=== PATIENT | male | born 1945 | race Caucasian/White ===

== ENCOUNTER → 2020-08-18 13:15 | Outpatient (BNVA) | payer MEDICARE, SELFPAY | PROVIDERS: PCP Internal Medicine; Visit Provider Orthopaedic Surgery | DX: M75.41 Impingement syndrome of right shoulder (principal) | CPT/HCPCS: 99202 ==

== ENCOUNTER 2020-09-16 08:08 | Outpatient (REF) | payer MEDICARE, SELFPAY ==
[2020-09-16 11:53] LABS: Cholesterol 133 mg/dL; Glucose Fasting 107 mg/dL (60-99); HDL Cholesterol 41 mg/dL; LDL Cholesterol Calculated 76 mg/dl; Triglycerides 84 mg/dL
[2020-09-16 12:15] LABS: Estimated Average Glucose 120 mg/dL; Hemoglobin A1c % 5.8 %
== END 2020-09-16 08:09 | disposition home or self-care (01) ==
LOC: HO.HMGCLDS 08:08
PROVIDERS: PCP Internal Medicine; Visit Provider Internal Medicine
DX: Z00.00 Encounter for general adult medical examination without abnormal findings (principal); R73.01 Impaired fasting glucose; E78.00 Pure hypercholesterolemia, unspecified; I10 Essential (primary) hypertension; G47.33 Obstructive sleep apnea (adult) (pediatric); D12.6 Benign neoplasm of colon, unspecified; M25.511 Pain in right shoulder; Z86.73 Personal history of transient ischemic attack (TIA), and cerebral infarction without residual deficits
CPT/HCPCS: 36415; 80061; 82947; 83036

== ENCOUNTER 2021-03-02 07:29 | Outpatient (REF) | payer MEDICARE, SELFPAY ==
[2021-03-02 11:27] LABS: MANUAL DIFF FLAG NO
[2021-03-02 11:40] LABS: Estimated Average Glucose 120 mg/dL; Hemoglobin A1C 148.4581 umol/L; Hemoglobin A1c % 5.8 %
[2021-03-02 12:03] LABS: Basophils Percent Auto 0.3 % (0-2); Eosinophils Absolute Auto 0.2 X10*3/uL (0.0-0.4); Eosinophils Percent Auto 3.6 % (0-4); Hematocrit 40.6 % (42-52); Hemoglobin 13.6 g/dl (14.0-18.0); Imm Gran Abs Auto 0.01 X10*3/uL (0.00-0.03); Imm Gran Pct Auto 0.2 % (0.0-0.4); Lymphocytes Absolute Auto 2.3 X10*3/uL (1.2-4.9); Lymphocytes Percent Auto 36.9 % (20-40); Mean Corpuscular HGB Conc 33.5 g/dl (31.0-36.0); Mean Corpuscular Hemoglobin 30.1 pg (27.0-33.0); Mean Corpuscular Volume 89.8 fL (80-98); Mean Platelet Volume 10.5 fL (9.4-12.4); Monocytes Absolute Auto 0.5 X10*3/uL (0.1-1.2); Monocytes Percent Auto 7.7 % (2-11); Neutrophils Absolute Auto 3.3 X10*3/uL (2.0-8.3); Neutrophils Percent Auto 51.3 % (45-73); Platelet Count 189 X10*3/uL (160-400); Red Blood Count 4.52 X10*6/uL (4.60-5.80); Red Cell Distribution Width 12.7 % (11.0-16.0); White Blood Count 6.3 X10*3/uL (4.8-10.8)
[2021-03-02 12:10] LABS: Alanine Aminotransferase 21 U/L (0-40); Albumin Level 4.3 g/dL (3.5-5.0); Alkaline Phosphatase 60 U/L (39-117); Anion Gap 13 (12-20); Aspartate Amino Transferase 19 U/L (5-37); Bilirubin Total 0.8 mg/dL (0.0-1.0); Blood Urea Nitrogen 19 mg/dL (9-16); Calcium 9.6 mg/dL (8.4-10.2); Carbon Dioxide 27 mmol/L (22-29); Chloride 107 mmol/L (96-108); Cholesterol 131 mg/dL; Estimated Glomerular Filt Rate > 60; Glucose Random 112 mg/dL (60-115); HDL Cholesterol 44 mg/dL; LDL Cholesterol Calculated 75 mg/dl; Potassium 4.2 mmol/L (3.3-5.1); Sodium 143 mmol/L (135-145); Total Protein 6.5 g/dL (6.5-8.0); Triglycerides 63 mg/dL
[2021-03-02 12:37] LABS: Free T4 (Free Thyroxine) 0.88 ng/dL (0.71-1.85); Thyroid Stimulating Hormone 2.28 uIU/mL (0.32-4.0)
[2021-03-02 12:51] LABS: Folate 13.2 ng/mL (> or = 4.0); Vitamin B12 331 pg/mL (200-900)
== END 2021-03-02 07:30 | disposition home or self-care (01) ==
LOC: HO.HMGCLDS 07:29
PROVIDERS: PCP Internal Medicine; Visit Provider Internal Medicine
DX: R73.02 Impaired glucose tolerance (oral) (principal); I10 Essential (primary) hypertension; E78.00 Pure hypercholesterolemia, unspecified
CPT/HCPCS: 36415; 80053; 80061; 82607; 82746; 83036; 84439; 84443; 85025

== ENCOUNTER → 2021-03-08 08:22 | Outpatient (BNVA) | payer MEDICARE, SELFPAY | PROVIDERS: PCP Internal Medicine; Visit Provider Nurse Practitioner Family | CPT/HCPCS: Q3014 ==

== ENCOUNTER 2021-03-09 13:21 | Outpatient (REF) | payer MEDICARE, SELFPAY ==
[2021-03-09 13:52] LABS: MANUAL DIFF FLAG NO
[2021-03-09 13:58] LABS: Basophils Percent Auto 0.4 % (0-2); Eosinophils Absolute Auto 0.2 X10*3/uL (0.0-0.4); Eosinophils Percent Auto 2.9 % (0-4); Hematocrit 40.6 % (42-52); Hemoglobin 13.7 g/dl (14.0-18.0); Imm Gran Abs Auto 0.01 X10*3/uL (0.00-0.03); Imm Gran Pct Auto 0.1 % (0.0-0.4); Immature Retic Fraction 11.4 % (2.3-13.4); Lymphocytes Absolute Auto 2.8 X10*3/uL (1.2-4.9); Lymphocytes Percent Auto 36.2 % (20-40); Mean Corpuscular HGB Conc 33.7 g/dl (31.0-36.0); Mean Platelet Volume 10.5 fL (9.4-12.4); Monocytes Absolute Auto 0.5 X10*3/uL (0.1-1.2); Monocytes Percent Auto 6.4 % (2-11); Neutrophils Absolute Auto 4.1 X10*3/uL (2.0-8.3); Platelet Count 196 X10*3/uL (160-400); Red Blood Count 4.56 X10*6/uL (4.60-5.80); Red Cell Distribution Width 12.6 % (11.0-16.0); Retic HGB Equivalent 34.7 pg (30.0-35.0); Reticulocyte Percent 1.3 % (0.5-1.8); Reticulocytes Absolute 0.061 X10*6/uL (0.026-0.095); White Blood Count 7.7 X10*3/uL (4.8-10.8)
[2021-03-09 14:26] LABS: Iron 95 mcg/dL (45-160); Percent Iron Saturation 37 % (15-50); Total Iron Binding Capacity 254 mcg/dL (228-428); Unsaturated Iron Binding 159 ug/dL
[2021-03-09 14:49] LABS: Ferritin 105 ng/mL (20-250)
== END 2021-03-09 13:22 | disposition home or self-care (01) ==
LOC: HO.HMGCLDS 13:21
PROVIDERS: PCP Internal Medicine; Visit Provider Internal Medicine
DX: D64.9 Anemia, unspecified (principal)
CPT/HCPCS: 36415; 82728; 83540; 85025; 85045

== ENCOUNTER → 2021-06-08 10:56 | Outpatient (BNVA) | payer MEDICARE, SELFPAY | PROVIDERS: PCP Internal Medicine; Visit Provider Urology | DX: N40.1 Benign prostatic hyperplasia with lower urinary tract symptoms (principal); N20.0 Calculus of kidney; R35.0 Frequency of micturition | CPT/HCPCS: 51798; Q3014 ==

== ENCOUNTER 2021-08-18 10:18 | Outpatient (REF) | payer MEDICARE, SELFPAY ==
--- NOTE | ~2021-08-18 | US_ITS ---
EXAMINATION: US RETROPERITONEAL LIMITED (RENAL ONLY) CLINICAL INFORMATION: Calculus of kidney. COMPARISON: Renal ultrasound 05/04/2020. KUB 04/14/2020. CT abdomen and pelvis 11/13/2016. TECHNIQUE: Real-time imaging of the kidneys. FINDINGS: RIGHT KIDNEY: 11.5 x 5.4 x 5.6 cm (SAG x AP x TRV). The kidney has normal cortical thickness and cortical echotexture. No focal parenchymal lesion. No hydronephrosis. A small, 0.3 cm hyperechoic focus in the interpolar area lacks twinkle artifact or distal shadowing. This is equivocal for a small calyceal stone. LEFT KIDNEY: 11.3 x 5.2 x 6.2 cm (SAG x AP x TRV). The kidney has normal cortical thickness and cortical echotexture. No focal parenchymal lesion. Possible 0.2 cm calyceal stone in the interpolar area (image 53 of 64). A stone that measures up to 0.6 cm in the upper pole is stable compared to 05/04/2020. No hydronephrosis. US/US renal BI IMPRESSION: * A 0.6 cm calculus at the upper pole left kidney is unchanged in size and position compared to 05/04/2020. * Possible small calculi in the interpolar region of each kidney. No hydronephrosis.
== END 2021-08-18 10:19 | disposition home or self-care (01) ==
LOC: HO.HMGCX 10:18
PROVIDERS: PCP Internal Medicine; Visit Provider Urology
DX: N20.0 Calculus of kidney (principal)
CPT/HCPCS: 76775

== ENCOUNTER 2021-10-11 14:41 | Outpatient (REF) | payer MEDICARE, SELFPAY | END 2021-10-11 14:42 | disposition home or self-care (01) | LOC: HO.HMGCLDS 14:41 | PROVIDERS: PCP Internal Medicine; Visit Provider Urology | DX: Z12.5 Encounter for screening for malignant neoplasm of prostate (principal); N40.1 Benign prostatic hyperplasia with lower urinary tract symptoms; R35.0 Frequency of micturition | CPT/HCPCS: 36415; 84153 ==

== ENCOUNTER → 2021-10-14 08:45 | Outpatient (BNVA) | payer MEDICARE, SELFPAY | PROVIDERS: PCP Internal Medicine; Visit Provider Urology | DX: Z13.89 Encounter for screening for other disorder (principal) | CPT/HCPCS: Q3014 ==

== ENCOUNTER 2022-02-23 02:16 | Emergency (ER) | payer MEDICARE, SELFPAY ==
--- NOTE | ~2022-02-23 | CT_ITS ---
EXAMINATION: CT ABDOMEN AND PELVIS WITHOUT CONTRAST CLINICAL INFORMATION: Left flank pain. History of stone. COMPARISON: Renal ultrasound 08/18/2021 TECHNIQUE: Multidetector volumetric imaging was performed from the superior aspect of the liver through the pubic symphysis. Sagittal and coronal reformatted images were obtained on the technologist's workstation. This CT examination was performed using dose optimization techniques as appropriate, variously including the following: *Automated exposure control *Adjustment of mA and/or kV according to patient size (this includes techniques or standardized protocols for targeted exams where dose is matched to indication/reason for exam; i.e. extremities or head) *Use of iterative reconstruction technique DLP: 568 mGy-cm FINDINGS: LUNG BASES: The visualized lung bases are unremarkable. LIVER, GALLBLADDER, AND BILIARY TREE: The liver is normal in size, shape, and attenuation. No focal hepatic lesion or biliary ductal dilatation is present. The gallbladder is unremarkable with no evidence of radiopaque gallstones, gallbladder wall thickening, or obvious pericholecystic inflammatory changes. PANCREAS: Unremarkable. SPLEEN: Unremarkable. ADRENAL GLANDS: Unremarkable. KIDNEYS AND URETERS: The kidneys are normal in size, shape, and attenuation. Mild left hydronephrosis. 0.6 cm calculus in the proximal ureter at the level of L4-L5. This measures 900 Hounsfield units. BLADDER: Unremarkable. GASTROINTESTINAL TRACT: The stomach there is unremarkable. Normal caliber small bowel. No obstruction. No wall thickening or inflammation. Normal appendix. No free air or free fluid. ABDOMINAL WALL: No significant hernia is appreciated. LYMPH NODES: Normal. VASCULAR: Normal caliber aorta with mild atherosclerotic calcification. PELVIC VISCERA: The prostate and seminal vesicles are unremarkable. OSSEOUS STRUCTURES: No acute or suspicious osseous abnormalities. CT/CT abdomen pelvis wo con IMPRESSION: Mild left hydronephrosis with a 0.6 cm calculus in the proximal ureter. Fleischner guidelines were followed.
[2022-02-23 02:30] VITALS: BP 187/77; PULSE 63; RESP 18; TEMP 36.8; O2SAT 95; BMI 26.0
--- NOTE | 2022-02-23 02:36 | ED_ITS ---
HPI - Abdominal Pain General Chief Complaint: Abdominal Pain Stated Complaint: Kidney Stone Time Seen by Provider: 02/23/22 02:36 Source: patient Mode of arrival: ambulatory Limitations: no limitations History of Present Illness HPI narrative: Patient with history of kidney stone had lithotripsy last year complaining of pain in the left flank area for last few hours associated with nausea and pain while urinating no hematuria no fever no chills. Related Data Home Medications Medication Instructions Recorded Confirmed aspirin 81 mg tablet,delayed 81 mg PO DAILY 08/16/20 03/08/21 release (Adult Aspirin Regimen) cholecalciferol (vitamin D3) 25 25 mcg PO DAILY 03/08/21 03/08/21 mcg (1,000 unit) capsule Previous Rx's Medication Instructions Recorded finasteride 5 mg tablet 5 mg PO DAILY 90 days #90 tabs 08/31/21 rosuvastatin 5 mg tablet 5 mg PO DAILY #90 tabs 09/05/21 ibuprofen 600 mg tablet 600 mg PO Q6H PRN pain #30 tabs 02/23/22 ondansetron 4 mg disintegrating 4 mg PO Q6-8H PRN nausea and 02/23/22 tablet vomiting #7 tabs oxycodone 5 mg tablet 5 mg PO Q6H PRN Pain (Scale Score 02/23/22 7-10) #20 tabs Allergies Allergy/AdvReac Type Severity Reaction Status Date / Time No Known Allergies Allergy Verified 06/08/21 12:46 [No Known Allergies*] Review of Systems Review of Systems Yes all other systems are reviewed and are negative PMFSH Past Medical History Medical History Bilateral renal stones BPH (benign prostatic hyperplasia) Cervical spinal stenosis Degenerative disc disease, cervical History of TIA (transient ischemic attack) Hypercholesterolemia Hypertension Impaired glucose tolerance Nephrolithiasis Obstructive sleep apnea syndrome, moderate Sleep apnea Vitamin D deficiency Surgical History H/O lithotripsy History of tonsillectomy Social History Social History Housing: House Patient Tobacco Use Status: Former Tobacco user Tobacco use type: Cigarette e-Cigarette/Vaping Use: Never Used Second Hand Smoke Exposure: No Advance Directives: No service: No Current occupational status: retired Current occupation: Right Handed Physical Exam ED Vital Signs: Vital Signs - 24 hr 02/23/22 02:30 02/23/22 04:09 Temperature 98.3 F Pulse Rate 63 65 Respiratory Rate 18 24 H Blood Pressure 187/77 H 188/60 H Pulse Oximetry 95 99 Oxygen Delivery Method Room Air Room Air BMI result Body Mass Index 26.0 Appearance: Alert. Oriented X3. No acute distress. Eyes: no pallor ENT: Pharynx normal. Oral Mucosa moist Neck: Normal inspection. Neck supple. CVS: Normal heart rate and rhythm. Pulses normal. Respiratory: No respiratory distress. Equal air entry bilateral, no wheezing/rales/rhonchi Abdomen: Soft and nontender. Bowel sounds are present, no mass palpable, left CVA tenderness ++ Skin: Skin warm and dry. Normal skin color. Normal skin turgor. Extremities: No lower extremity edema. No calf tenderness Neuro: Oriented X 3. No motor deficit. MDM - Abdominal Pain MDM Narrative Medical decision making narrative: patient has 0.6 cm left upper ureteric stone with mild hydronephrosis pinning much better after arrival received only 1 dose of Toradol. Will discharge p atient home on oxycodone advised to follow-up with urologist Lab Data Attestation: I reviewed the patient's lab results. Result diagrams: 02/23/22 02:39 02/23/22 02:39 Labs: Lab Results 02/23/22 02/23/22 02/23/22 Range/Units 02:39 02:39 02:39 WBC 11.2 H (4.8-10.8) X10*3/uL RBC 4.53 L (4.60-5.80) X10*6/uL Hgb 13.9 L (14.0-18.0) g/dl Hct 39.5 L (42.0-52.0) % MCV 87.2 (80.0-98.0) fL MCH 30.7 (27.0-33.0) pg MCHC 35.2 (31.0-36.0) g/dl RDW 12.5 (11.0-16.0) % Plt Count 191 (160-400) X10*3/uL MPV 9.8 (9.4-12.4) fL Immature Gran % (Auto) 0.3 (0.0-0.4) % Neut % (Auto) 77.7 H (45-73) % Lymph % (Auto) 15.5 L (20-40) % [place] % (Auto) 5.6 (2-11) % Eos % (Auto) 0.7 (0-4) % Baso % (Auto) 0.2 (0-2) % Lymph # (Auto) 1.7 (1.2-4.9) X10*3/uL [place] # (Auto) 0.6 (0.1-1.2) X10*3/uL Eos # (Auto) 0.1 (0.0-0.4) X10*3/uL Baso # (Auto) 0.0 (0.0-0.2) X10*3/uL Abs Immat Gran (auto) 0.03 (0.00-0.03) X10*3/uL Absolute Neuts (auto) 8.7 H (2.0-8.3) x10*3/uL Absolute Nucleated RBC 0.000 (0.0-0.012) X10*3/uL Nucleated RBC % (auto) 0.0 (0.0-0.2) /100WBC Sodium 138 (135-145) mmol/L Potassium 4.2 (3.3-5.1) mmol/L Chloride 105 (96-108) mmol/L Carbon Dioxide 24 (22-29) mmol/L Anion Gap 13 (12-20) BUN 21 H (9-16) mg/dL Creatinine 1.06 (0.5-1.4) mg/dL Estim Creat Clear Calc 60.1 Estimated GFR > 60 Random Glucose 148 H (60-115) mg/dL Calcium 8.9 D (8.4-10.2) mg/dL Urine Color YELLOW Urine Appearance HAZY Urine pH 7.0 (5.0-8.0) Ur Specific [place] 1.020 (1.005-1.025) Urine Protein TRACE (NEG-TRACE) MG/DL Urine Glucose (UA) NEG (NEG) MG/DL Urine Ketones NEG (NEG) MG/DL Urine Blood 3+ H (NEG) Urine Nitrite NEG (NEG) Ur Leukocyte Esterase NEG (NEG) Urine RBC 50-75 H (0) /HPF Urine WBC 0-2 (0-4) /HPF Ur Squamous Epith Cells TRACE /LPF Amorphous Sediment 1+ /LPF Urine Bacteria NONE /LPF Urine Mucus TRACE /LPF Discharge Plan Discharge Clinical Impression: Calculus of kidney Patient Disposition: Home, Self-Care Instructions: Kidney Stones (ED) Additional Instructions: drink plenty of fluids continue finasteride pain medication as prescribed follow up with your urologist if pain continues likely your stone will pass Prescriptions: New ibuprofen 600 mg tablet 600 mg PO Q6H PRN (Reason: pain) Qty: 30 0RF oxycodone 5 mg tablet 5 mg PO Q6H PRN (Reason: Pain (Scale Score 7-10)) Qty: 20 0RF Rx Instructions: Partial Fill upon patient request. ondansetron 4 mg tablet,disintegrating 4 mg PO Q6-8H PRN (Reason: nausea and vomiting) Qty: 7 0RF No Action finasteride 5 mg tablet 5 mg PO DAILY 90 Days Qty: 90 1RF rosuvastatin 5 mg tablet 5 mg PO DAILY Qty: 90 2RF cholecalciferol (vitamin D3) 25 mcg (1,000 unit) capsule 25 mcg PO DAILY aspirin [Adult Aspirin Regimen] 81 mg tablet,delayed release (DR/EC) 81 mg PO DAILY Referrals: Pipo Goodrich MD [Physician] - 3 days Interventions: ED Discharge Assessment Last Done: 02/23/22 05:08 Discharge Date/Time: 02/23/22 05:09
[2022-02-23 02:44] LABS: MANUAL DIFF FLAG NO
[2022-02-23] MEDS: 0.9 % Sodium Chloride 1,000 ML 999 ML IV (02:44)
[2022-02-23 02:45] LABS: Basophils Percent Auto 0.2 % (0-2); Eosinophils Absolute Auto 0.1 X10*3/uL (0.0-0.4); Eosinophils Percent Auto 0.7 % (0-4); Hematocrit 39.5 % (42.0-52.0); Hemoglobin 13.9 g/dl (14.0-18.0); Imm Gran Abs Auto 0.03 X10*3/uL (0.00-0.03); Imm Gran Pct Auto 0.3 % (0.0-0.4); Lymphocytes Absolute Auto 1.7 X10*3/uL (1.2-4.9); Lymphocytes Percent Auto 15.5 % (20-40); Mean Corpuscular HGB Conc 35.2 g/dl (31.0-36.0); Mean Corpuscular Hemoglobin 30.7 pg (27.0-33.0); Mean Corpuscular Volume 87.2 fL (80.0-98.0); Mean Platelet Volume 9.8 fL (9.4-12.4); Monocytes Absolute Auto 0.6 X10*3/uL (0.1-1.2); Monocytes Percent Auto 5.6 % (2-11); Neutrophils Absolute Auto 8.7 x10*3/uL (2.0-8.3); Neutrophils Percent Auto 77.7 % (45-73); Platelet Count 191 X10*3/uL (160-400); Red Blood Count 4.53 X10*6/uL (4.60-5.80); Red Cell Distribution Width 12.5 % (11.0-16.0); White Blood Count 11.2 X10*3/uL (4.8-10.8)
[2022-02-23 02:46] LABS: Appearance Urine HAZY; Color Urine YELLOW; Glucose Urine UA NEG (NEG); Leukocyte Esterase Urine NEG (NEG); Nitrite Urine NEG (NEG); UACC Culture Trigger NO; Urine Blood 3+ (NEG); Urine Ketones NEG (NEG); Urine Protein TRACE MG/DL (NEG-TRACE)
[2022-02-23 02:53] LABS: Amorphous Sediment Urine 1+ /LPF; Mucus Urine TRACE /LPF; RBC Urine 50-75 /HPF (0); Squamous Epithelial Cell Urine TRACE /LPF; WBC Urine 0-2 /HPF (0-4)
[2022-02-23 03:04] LABS: Anion Gap 13 (12-20); Blood Urea Nitrogen 21 mg/dL (9-16); Calcium 8.9 mg/dL (8.4-10.2); Carbon Dioxide 24 mmol/L (22-29); Chloride 105 mmol/L (96-108); Creatinine Clr Calc Pharmacy 60.1; Estimated Glomerular Filt Rate > 60; Glucose Random 148 mg/dL (60-115); Potassium 4.2 mmol/L (3.3-5.1); Sodium 138 mmol/L (135-145)
[2022-02-23] MEDS: Tamsulosin HCL 0.4 MG CAPSULE PO (03:49)
[2022-02-23 04:09] VITALS: BP 188/60; PULSE 65; RESP 24; O2SAT 99
[2022-02-23] MEDS: Ketorolac Tromethamine 30 MG/ML VIAL IVPUSH (04:14)
== END 2022-02-23 05:09 | disposition home or self-care (01) ==
PROVIDERS: Emergency Provider Internal Medicine; PCP Internal Medicine
DX: N13.2 Hydronephrosis with renal and ureteral calculous obstruction (principal); R10.9 Unspecified abdominal pain; I10 Essential (primary) hypertension; E78.5 Hyperlipidemia, unspecified; Z86.73 Personal history of transient ischemic attack (TIA), and cerebral infarction without residual deficits; Z87.442 Personal history of urinary calculi; Z87.891 Personal history of nicotine dependence
CPT/HCPCS: 36415; 74176; 80048; 81001; 85025; 96361; 96374; 99284; J1885

== ENCOUNTER 2022-03-01 07:12 | Outpatient (REF) | payer MEDICARE, SELFPAY ==
[2022-03-01 11:35] LABS: MANUAL DIFF FLAG NO
[2022-03-01 11:38] LABS: Basophils Percent Auto 0.4 % (0-2); Eosinophils Absolute Auto 0.2 X10*3/uL (0.0-0.4); Eosinophils Percent Auto 2.1 % (0-4); Hematocrit 39.1 % (42.0-52.0); Hemoglobin 13.4 g/dl (14.0-18.0); Imm Gran Abs Auto 0.04 X10*3/uL (0.00-0.03); Imm Gran Pct Auto 0.4 % (0.0-0.4); Lymphocytes Absolute Auto 2.6 X10*3/uL (1.2-4.9); Lymphocytes Percent Auto 27.2 % (20-40); Mean Corpuscular HGB Conc 34.3 g/dl (31.0-36.0); Mean Corpuscular Hemoglobin 30.7 pg (27.0-33.0); Mean Corpuscular Volume 89.7 fL (80.0-98.0); Mean Platelet Volume 10.3 fL (9.4-12.4); Monocytes Absolute Auto 0.9 X10*3/uL (0.1-1.2); Monocytes Percent Auto 9.4 % (2-11); Neutrophils Absolute Auto 5.8 x10*3/uL (2.0-8.3); Neutrophils Percent Auto 60.5 % (45-73); Platelet Count 202 X10*3/uL (160-400); Red Blood Count 4.36 X10*6/uL (4.60-5.80); Red Cell Distribution Width 12.3 % (11.0-16.0); White Blood Count 9.6 X10*3/uL (4.8-10.8)
[2022-03-01 12:04] LABS: Estimated Average Glucose 117 mg/dL; Hemoglobin A1c % 5.7 %
[2022-03-01 12:20] LABS: Free T4 (Free Thyroxine) 0.91 ng/dL (0.71-1.85); Thyroid Stimulating Hormone 3.48 uIU/mL (0.32-4.0)
[2022-03-01 12:35] LABS: Alanine Aminotransferase 16 U/L (0-40); Albumin Level 4.2 g/dL (3.5-5.0); Alkaline Phosphatase 53 U/L (39-117); Anion Gap 15 (12-20); Aspartate Amino Transferase 16 U/L (5-37); Bilirubin Total 0.6 mg/dL (0.0-1.0); Blood Urea Nitrogen 18 mg/dL (9-16); Carbon Dioxide 25 mmol/L (22-29); Chloride 106 mmol/L (96-108); Cholesterol 133 mg/dL; Estimated Glomerular Filt Rate > 60; Glucose Random 104 mg/dL (60-115); HDL Cholesterol 46 mg/dL; LDL Cholesterol Calculated 70 mg/dl; Potassium 4.1 mmol/L (3.3-5.1); Sodium 142 mmol/L (135-145); Total Protein 6.5 g/dL (6.5-8.0); Triglycerides 86 mg/dL
[2022-03-01 12:37] LABS: Folate 12.6 ng/mL (> or = 4.0); Vitamin B12 321 pg/mL (200-900)
== END 2022-03-01 07:13 | disposition home or self-care (01) ==
LOC: HO.HMGCLDS 07:12
PROVIDERS: Visit Provider Internal Medicine
DX: I10 Essential (primary) hypertension (principal); E78.00 Pure hypercholesterolemia, unspecified
CPT/HCPCS: 36415; 80053; 80061; 82607; 82746; 83036; 84439; 84443; 85025

== ENCOUNTER → 2022-03-21 09:26 | Outpatient (BNVA) | payer MEDICARE, SELFPAY | PROVIDERS: PCP Internal Medicine | DX: N20.0 Calculus of kidney (principal) | CPT/HCPCS: 99212 ==

== ENCOUNTER 2022-04-06 07:51 | Outpatient (REF) | payer MEDICARE, SELFPAY ==
--- NOTE | ~2022-04-06 | XR_ITS ---
EXAMINATION: XR SHOULDER, RIGHT CLINICAL INFORMATION: Pain COMPARISON: None TECHNIQUE: AP external rotation, Grashey, scapular Y, and axillary views of the right shoulder. FINDINGS: The bones and soft tissues are normal. No fracture. Glenohumeral and acromioclavicular alignment is anatomic with normal joint space. No abnormal soft tissue calcifications. XR/XR shoulder RT min 2V IMPRESSION: Unremarkable right shoulder
== END 2022-04-06 07:52 | disposition home or self-care (01) ==
LOC: HO.HOSX 07:51
PROVIDERS: Visit Provider Physician Assistant
DX: M75.101 Unspecified rotator cuff tear or rupture of right shoulder, not specified as traumatic (principal)
CPT/HCPCS: 73030; 99202

== ENCOUNTER 2022-07-11 14:19 | Outpatient (REF) | payer MEDICARE, SELFPAY ==
--- NOTE | ~2022-07-11 | US_ITS ---
EXAMINATION: US RETROPERITONEAL LIMITED (RENAL ONLY) CLINICAL INFORMATION: Calculus of kidney. COMPARISON: CT of the abdomen and pelvis without contrast dated 02/23/2022. Renal only ultrasound dated 08/18/2021 and 05/04/2020. KUB dated 04/14/2020 and 11/15/2016. TECHNIQUE: Real-time imaging of the kidneys. FINDINGS: RIGHT KIDNEY: 12.9 x 5.7 x 5.5 cm (SAG x AP x TRV). The kidney is normal in size, contour, and echogenicity. Renal cortical thickness is normal. No calculi or focal parenchymal lesions. No hydronephrosis. LEFT KIDNEY: 12.8 x 5.3 x 5.3 cm (SAG x AP x TRV). The kidney is normal in size, contour, and echogenicity. Renal cortical thickness is normal. No calculi or focal parenchymal lesions. Previously seen left-sided hydronephrosis has resolved and at this time there is no hydronephrosis. US/US renal BI IMPRESSION: Normal-appearing kidneys. No renal calculi seen. Previously seen left-sided hydronephrosis has resolved.
== END 2022-07-11 14:20 | disposition home or self-care (01) ==
LOC: HO.HMGCX 14:19
PROVIDERS: PCP Internal Medicine
DX: N20.0 Calculus of kidney (principal)
CPT/HCPCS: 76775

== ENCOUNTER → 2022-09-19 10:56 | Outpatient (BNVA) | payer MEDICARE, SELFPAY | PROVIDERS: PCP Internal Medicine; Visit Provider Nurse Practitioner Family | DX: N40.1 Benign prostatic hyperplasia with lower urinary tract symptoms (principal); R35.0 Frequency of micturition; N20.0 Calculus of kidney; Z79.899 Other long term (current) drug therapy | CPT/HCPCS: 51798; 99212 ==

== ENCOUNTER 2022-12-13 12:36 | Outpatient (REF) | payer MEDICARE, SELFPAY ==
--- NOTE | ~2022-12-13 | XR_ITS ---
EXAMINATION: Knee x-ray CLINICAL INFORMATION: Pain COMPARISON: None. TECHNIQUE: Standing AP view of both knees and lateral and sunrise view of the left knee FINDINGS: Left: Bone alignment is normal. No fracture or dislocation. There is mild medial femoral tibial joint space narrowing. Spaces are otherwise normal. There is no joint effusion. There may be mild medial femoral tibial joint space narrowing at the right knee as well. XR/XR knee LT 2V IMPRESSION: Mild medial femoral tibial joint space narrowing otherwise unremarkable exam.
--- NOTE | ~2022-12-13 | XR_ITS ---
EXAMINATION: Knee x-ray CLINICAL INFORMATION: Pain COMPARISON: None. TECHNIQUE: Standing AP view of both knees and lateral and sunrise view of the left knee FINDINGS: Left: Bone alignment is normal. No fracture or dislocation. There is mild medial femoral tibial joint space narrowing. Spaces are otherwise normal. There is no joint effusion. There may be mild medial femoral tibial joint space narrowing at the right knee as well. XR/XR knee standing BI IMPRESSION: Mild medial femoral tibial joint space narrowing otherwise unremarkable exam.
== END 2022-12-13 12:37 | disposition home or self-care (01) ==
LOC: HO.HOSX 12:36
PROVIDERS: PCP Internal Medicine; Visit Provider Physician Assistant
DX: M17.12 Unilateral primary osteoarthritis, left knee (principal)
CPT/HCPCS: 20610; 73560; 73565; 99212; J1040

== ENCOUNTER 2023-02-26 10:13 | Outpatient (REF) | payer MEDICARE, SELFPAY | END 2023-02-26 10:14 | disposition home or self-care (01) | LOC: HO.HMGCX 10:13 | PROVIDERS: PCP Internal Medicine; Visit Provider Nurse Practitioner Family | DX: N20.0 Calculus of kidney (principal); N40.1 Benign prostatic hyperplasia with lower urinary tract symptoms; R35.0 Frequency of micturition | CPT/HCPCS: 76770; 76775 ==

== ENCOUNTER 2023-03-09 07:02 | Outpatient (REF) | payer MEDICARE, SELFPAY ==
[2023-03-09 11:31] LABS: MANUAL DIFF FLAG NO
[2023-03-09 11:39] LABS: Basophils Percent Auto 0.5 % (0-2); Eosinophils Absolute Auto 0.2 X10*3/uL (0.0-0.4); Eosinophils Percent Auto 3.2 % (0-4); Hematocrit 39.8 % (42.0-52.0); Hemoglobin 13.2 g/dl (14.0-18.0); Imm Gran Abs Auto 0.01 X10*3/uL (0.00-0.03); Imm Gran Pct Auto 0.2 % (0.0-0.4); Lymphocytes Absolute Auto 2.6 X10*3/uL (1.2-4.9); Lymphocytes Percent Auto 38.7 % (20-40); Mean Corpuscular HGB Conc 33.2 g/dl (31.0-36.0); Mean Corpuscular Hemoglobin 30.5 pg (27.0-33.0); Mean Corpuscular Volume 91.9 fL (80.0-98.0); Mean Platelet Volume 10.5 fL (9.4-12.4); Monocytes Absolute Auto 0.5 X10*3/uL (0.1-1.2); Monocytes Percent Auto 7.5 % (2-11); Neutrophils Absolute Auto 3.3 x10*3/uL (2.0-8.3); Neutrophils Percent Auto 49.9 % (45-73); Platelet Count 193 X10*3/uL (160-400); Red Blood Count 4.33 X10*6/uL (4.60-5.80); Red Cell Distribution Width 12.8 % (11.0-16.0); White Blood Count 6.7 X10*3/uL (4.8-10.8)
[2023-03-09 12:37] LABS: Estimated Average Glucose 117 mg/dL; Hemoglobin A1c % 5.7 %
[2023-03-09 12:52] LABS: Alanine Aminotransferase 20 U/L (0-40); Albumin Level 4.1 g/dL (3.5-5.0); Alkaline Phosphatase 47 U/L (39-117); Anion Gap 10 (12-20); Aspartate Amino Transferase 18 U/L (5-37); Bilirubin Total 0.6 mg/dL (0.0-1.0); Blood Urea Nitrogen 19 mg/dL (9-16); Calcium 9.4 mg/dL (8.4-10.2); Carbon Dioxide 29 mmol/L (22-29); Chloride 106 mmol/L (96-108); Cholesterol 136 mg/dL; Estimated Glomerular Filt Rate > 60; Glucose Random 109 mg/dL (60-115); HDL Cholesterol 47 mg/dL; LDL Cholesterol Calculated 75 mg/dl; Potassium 3.9 mmol/L (3.3-5.1); Sodium 141 mmol/L (135-145); Total Protein 6.5 g/dL (6.5-8.0); Triglycerides 70 mg/dL
[2023-03-09 12:53] LABS: Free T4 (Free Thyroxine) 0.88 ng/dL (0.71-1.85); Thyroid Stimulating Hormone 3.02 uIU/mL (0.32-4.0); Vitamin D 25-OH Total 65.3 ng/mL (>30)
[2023-03-09 13:15] LABS: Folate 10.9 ng/mL (> or = 4.0); Vitamin B12 374 pg/mL (200-900)
== END 2023-03-09 07:03 | disposition home or self-care (01) ==
LOC: HO.HMGCLDS 07:02
PROVIDERS: PCP Internal Medicine; Visit Provider Internal Medicine
DX: I10 Essential (primary) hypertension (principal); R73.02 Impaired glucose tolerance (oral); E78.00 Pure hypercholesterolemia, unspecified; E55.9 Vitamin D deficiency, unspecified
CPT/HCPCS: 36415; 80053; 80061; 82306; 82607; 82746; 83036; 84439; 84443; 85025

== ENCOUNTER 2023-03-15 12:20 | Outpatient (AMB) | payer MEDICARE, SELFPAY ==
[2023-03-15 12:27] VITALS: BP 138/78; PULSE 80; O2SAT 98; BMI 26.2
--- NOTE | 2023-03-15 12:27 | A.OFFPC_ITS ---
Vital Signs 03/15/23 12:27 Height 5 ft 11 in Weight 188 lb BMI 26.2 BP 138/78 Blood Pressure Location Lt brachial Position Sitting Pulse 80 Pulse Source Pulse Oximeter Pulse Oximetry (%) 98 Oxygen Delivery Method Room Air Intake Visit Reasons: PE Allergies No Known Allergies [No Known Allergies*] Allergy (Verified 03/15/23 12:28) Medication List - Last Reconciled 03/15/23 by Benjamin Barron MD aspirin (Adult Aspirin Regimen) 81 mg PO DAILY cholecalciferol (vitamin D3) 25 mcg PO DAILY finasteride 5 mg PO DAILY 90 days ibuprofen 600 mg PO Q6H PRN rosuvastatin 5 mg PO DAILY Tobacco use date assessed: 03/15/23 Fall risk assessment: No Falls in past year Last assessed Fall Risk: 03/15/23 Dental Screening Dental Screen Date: 03/15/23 Did you have a dental visit in the last 12 months?: Yes Did you have a dental problem in the last 6 months where you did not have access to dental care?: No Was dental information given to patient?: Patient has dentist HPI PE HPI Details 78-year-old male with hypertension chronic anemia bilateral renal calculi obstructive sleep apnea several degenerative disc disease impaired glucose tolerance BPH and hypercholesterolemia last seen in February 2022. Patient is here for physical. Review of the notes has seen orthopedics in November 2022 for left knee pain had steroid injections before that in March 2022 had the right shoulder pain in which x-ray was done revealing negative results. With the renal calculi and BPH patient follows up with urology seen in August 2022 is continue to be monitored.. L eye retinal scarring seen Dr. mayberry. concern about hot flashes- antiandrogen finasteride. Discussed about the recent ultrasound done and will be seeing the Urology soon [facility] Medical History (Updated 03/15/23 @ 12:39 by Benjamin Barron MD) Anemia Bilateral renal stones BPH (benign prostatic hyperplasia) Cervical spinal stenosis Degenerative disc disease, cervical Folliculitis History of TIA (transient ischemic attack) Hypercholesterolemia Hypertension Impaired glucose tolerance Nephrolithiasis Obstructive sleep apnea syndrome, moderate Rash, skin Right shoulder pain 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 Sleep apnea Vitamin D deficiency Surgical History H/O lithotripsy History of tonsillectomy Social History (Updated 03/15/23 @ 12:44 by Benjamin Barron MD) Housing: House Alcohol intake: current Patient Tobacco Use Status: Former Tobacco user Tobacco use type: Cigarette Years Smoked: 1990 quit e-Cigarette/Vaping Use: Never Used Second Hand Smoke Exposure: No service: No Current occupational status: retired Current occupation: Right Handed Cognitive needs: No Hearing needs: No Vision needs: Yes Questionnaire PHQ-9 Over the last 2 weeks, how often have you been bothered by any of the following problems? 1. Little interest or pleasure in doing things: not at all 2. Feeling down, depressed, or hopeless: not at all 3. Trouble falling or staying asleep, or sleeping too much: not at all 4. Feeling tired or having little energy: not at all 5. Poor appetite or overeating: not at all 6. Feeling bad about yourself - or that you are a failure or have let yourself or your family down: not at all 7. Trouble concentrating on things, such as reading the newspaper or watching television: not at all 8. Moving or speaking so slowly that other people could have noticed. Or the opposite - being so fidgety or restless that you have been moving around a lot more than usual: not at all 9. Thoughts that you would be better off or of hurting yourself in some way: not at all Total score: 0 Depression Screening Interpretation: Negative Source: Developed by Drs. Nacho Carvalho, Alta Rivera, Greg Torres and colleagues, with an educational ger from [employer]. Thrive Questionnaire Date Thrive assessed: 03/15/23 I am a: Patient What is your living situation today?: I have a steady place to live Within the past 12 months, did the food you bought not last and you didn't have the money to get more?: Never true Within the past 12 months, did you worry whether your food would run out before you got money to buy more?: Never true Do you have trouble paying for medicines?: No Do you have trouble getting transportation to medical appointments?: No Do you have trouble paying your heating and electricity bill?: No Do you have trouble taking care of your child, family member or friend?: No Do you have trouble with day-to-day activities such as bathing, preparing meals, shopping, managing finances, etc.?: No Are you currently unemployed and looking for a job?: No Are you interested in more education?: No Currently or been in a relationship where the following occur: no concerns reported AUDIT C Alcohol Use Questionnaire (AUDIT-C) 1. How often do you have a drink containing alcohol?: 2-3 times a week 2. How many drinks containing alcohol do you have on a typical day when you are drinking?: 1 or 2 3. How often do you have six or more drinks on one occasion?: Never Total Score: 3 AMI-7 AMB Questionnaire AMI-7 Date AMI - 7 assessed: 03/15/23 Feeling nervous, anxious, or on edge: 0 = Not at all Not being able to stop or control worryin = Not at all Worrying too much about different things: 0 = Not at all Trouble relaxin = Not at all Being so restless that it is hard to sit still: 0 = Not at all Becoming easily annoyed or irritable: 0 = Not at all Feeling afraid as if something awful might happen: 0 = Not at all Total AMI-7 score (0-4 normal; 5-9 mild; 10-14 moderate; 15-21 severe): 0 Source: Developed by Drs. Nacho Carvalho, Alta Rivera, Greg Torres and colleagues, with an educational ger from [employer]. Review of Systems Const Denies poor appetite and Denies weakness Eyes Denies no additional complaints ENT Reports Normal hearing present, Denies dizziness, Denies nasal congestion, Denies tinnitus and Denies sore throat Card Denies chest pain, Denies syncope, Denies rapid heart rate and Denies dyspnea Resp Denies cough and Denies dyspnea GI Denies change in stool character, Reports constipation, Denies diarrhea, Denies nausea and Denies vomiting Denies dysuria and Denies urinary frequency Neuro Reports Normal hearing present, Denies confusion, Denies dizziness, Denies syncope and Denies weakness Psych Denies confusion Physical exam (Primary Care) Vital Signs: Oxygen Delivery Method Room Air 03/15/23 12:27 Tobacco/Smoking Status: Tobacco use Status Tobacco use date assessed 03/08/21 12/12/22 14:54 Patient Tobacco Use Status Former Tobacco user 12/12/22 14:54 Tobacco use type Cigarette 12/12/22 14:54 e-Cigarette/Vaping Use Never Used 12/12/22 14:54 Depression Screening Interpretation: Negative Thrive Assessment: Date of Thrive Assessment Date Thrive assessed 03/08/21 12/12/22 14:54 Currently or been in a relationship where the following occur: no concerns reported Const General: No confusion Orientation/consciousness: No confusion HENMT Head: Yes normocephalic Ears: external ears normal and TM's normal bilaterally Face and sinus: Yes normal facial exam Mouth: moist mucous membranes Throat: Yes tonsils normal Eyes Conjunctivae: conjunctivae normal Pupils: Equal, round and reactive pupils present and Pupil accommodation reflex normal Direct Ophthalmoscopy: normal light reflex Neck Neck: No lymphadenopathy Thyroid: Thyroid normal Chest Chest palpation & inspection: normal inspection of the chest Resp Effort & Inspection: normal respiratory effort and no audible wheezes Auscultation: clear to auscultation bilaterally, no crackles, no wheezes and lung sounds not diminished Cardio Rate: regular rate Rhythm: regular rhythm Peripheral pulses: radial pulses present and dorsalis pedis present GI Other: Declined rectal Palpation (GI): no masses Auscultation: normal bowel sounds and normoactive bowel sounds Rectal Exam - Male: Yes deferred Male General Exam: Yes normal external exam Skin General skin exam: no rashes or lesions noted Rashes: no rashes Neuro General: No confusion Cranial nerves: Yes Equal, round and reactive pupils present and Yes Normal hearing present Cognition (Neuro): normal cognition Gait exam (Neuro): Normal gait present Motor exam (neuro): 5/5 motor strength present throughout Deep tendon reflexes (DTR's): Right brachioradialis reflex intensity grade: 2+, Left brachioradialis reflex intensity grade: 2+, Right patellar reflex intensity grade: 2+ and Left patellar reflex intensity grade: 2+ Extrem General: No edema Assessment and Plan Assessment & Plan (1) Annual physical exam: Code(s): Z00.00 - Encounter for general adult medical examination without abnormal findings (2) Obstructive sleep apnea syndrome, moderate: Comment: AHI 17/hr, O2 james 80% Code(s): G47.33 - Obstructive sleep apnea (adult) (pediatric) (3) BPH (benign prostatic hyperplasia): Code(s): N40.0 - Benign prostatic hyperplasia without lower urinary tract symptoms Qualifiers: Lower urinary tract symptom detail: urinary frequency Lower urinary tract symptom presence: symptoms present Qualified Code(s): N40.1 - Benign prostatic hyperplasia with lower urinary tract symptoms; R35.0 - Frequency of micturition Plan: Continue with finasteride 5 mg once a day US revealing urinary retention and bladder calculi. will be seeing Urology (4) Impaired glucose tolerance: Code(s): R73.02 - Impaired glucose tolerance (oral) Plan: Decrease the amount of carbohydrate intake, pasta, bread, rice and potatoes are all sugar and that is aside from all the sweet stuff, remember that fruits are good but they are Sweet also. (5) Hypercholesterolemia: Code(s): E78.00 - Pure hypercholesterolemia, unspecified Plan: Avoid fried foods, chicken skin, eggs, butter margarine, pastries and meat. Be it pork or beef they have a lot of cholesterol LDL goal of less than 130 and triglyceride of less than 150. Patient is on rosuvastatin 5 mg once a day (6) Anemia of chronic disease: Code(s): D63.8 - Anemia in other chronic diseases classified elsewhere Plan: Stable (7) Osteoarthritis of left knee: Code(s): M17.12 - Unilateral primary osteoarthritis, left knee Plan: Patient has seen ortho and had injections (8) Bilateral renal stones: Comment: Lithotripsy Dr. Gilkii February, May 2018 Code(s): N20.0 - Calculus of kidney Plan: Patient follows up with urology keep well hydrated Medications: New CPAP As directed 1 ea 0RF Coding Level of Care Code Est Pt Prev Care >65y(02109) Diagnoses Annual physical exam Z00.00 Obstructive sleep apnea syndrome, moderate G47.33 BPH (benign prostatic hyperplasia) N40.1; R35.0 Lower urinary tract symptom detail: urinary frequency Lower urinary tract symptom presence: symptoms present Impaired glucose tolerance R73.02 Hypercholesterolemia E78.00 Anemia of chronic disease D63.8 Osteoarthritis of left knee M17.12 Bilateral renal stones N20.0
== END 2023-03-15 13:21 | disposition home or self-care (01) ==
PROVIDERS: Visit Provider Internal Medicine
DX: Z00.00 Encounter for general adult medical examination without abnormal findings (principal); G47.33 Obstructive sleep apnea (adult) (pediatric); N40.1 Benign prostatic hyperplasia with lower urinary tract symptoms; R35.0 Frequency of micturition; R73.02 Impaired glucose tolerance (oral); E78.00 Pure hypercholesterolemia, unspecified; D63.8 Anemia in other chronic diseases classified elsewhere; M17.12 Unilateral primary osteoarthritis, left knee; N20.0 Calculus of kidney
CPT/HCPCS: 99397

== ENCOUNTER 2023-03-19 15:54 | Outpatient (REF) | payer MEDICARE, SELFPAY ==
[2023-03-19 18:39] LABS: PSA,Total (Free>4and<10) 0.53 ng/mL (0.00-4.00)
== END 2023-03-19 15:55 | disposition home or self-care (01) ==
LOC: HO.LAB 15:54
PROVIDERS: PCP Internal Medicine; Visit Provider Nurse Practitioner Family
DX: Z12.5 Encounter for screening for malignant neoplasm of prostate (principal); N40.1 Benign prostatic hyperplasia with lower urinary tract symptoms; R35.0 Frequency of micturition
CPT/HCPCS: 36415; 84153

== ENCOUNTER 2023-03-21 11:18 | Outpatient (AMB) | payer MEDICARE, SELFPAY ==
--- NOTE | 2023-03-21 11:39 | A.OFFVIS_ITS ---
Intake Intake Visit Reasons: follow upPSA/PVR/US Intake Note: Patient is present for follow up PSA/PVR/Ultrasound/ BPH (imaging 02/26/23) (psa 0.53) Urology Medication: Finasteride Blood Thinner: Aspirin PVR:0 ml's Asphalt Heater Tender Required: No Accompanied by: Self / Same As Patient Allergies No Known Allergies [No Known Allergies*] Allergy (Verified 03/21/23 21:33) Medication List - Last Reconciled 03/21/23 by SKYLAR Zavala- aspirin (Adult Aspirin Regimen) 81 mg PO DAILY cholecalciferol (vitamin D3) 25 mcg PO DAILY CPAP As directed finasteride 5 mg PO DAILY 90 days ibuprofen 600 mg PO Q6H PRN rosuvastatin 5 mg PO DAILY HPI HPI Comments History of Present Illness Details Chung is a very pleasant 77-year-old male patient of Dr. Barron. He has a past medical history of anemia, renal stones, BPH, cervical spinal stenosis, degenerative disc disease, folliculitis, TIA, hypercholesterolemia, hypertension, obstructive sleep apnea with CPAP compliance, and vitamin-D deficiency. He presents to the office today for follow-up of his nephrolithiasis and benign prostatic hyperplasia. When asked patient reports to be doing extremely well. Recent renal imaging reviewed with the patient today. Right kidney with no calculi or hydronephrosis noted. There is a 1.5 x 1.3 x 1.4 cm simple lower pole cyst seen. No imaging follow-up is recommended per radiology report. Left kidney with no calculi, lesions, and or hydronephrosis noted. The bladder is well distended and normal. 1.0 by with 0.5 x 0.7 cm focus is seen in the bladder with shadowing and truncal artifact consistent with a calculus. The prostate is enlarged with a volume of 39.2 mL. He denies urinary urgency, urinary frequency, incontinence, hematuria, dysuria, foul smelling urine, changes to urinary stream, flank pain, fever, and or chills. When asked patient reports nocturia 1-2 times a night however it is not bothersome to him. He otherwise denies any urinary issues and or concerns at this time. Patient endorses to be drinking plenty of water daily and is adding 1 oz of lemon to wa ter daily. In office urinalysis results reviewed with the patient today. PVR 0 mL. PSAs are as follows: 10/18--1.1 03/18--0.5 He otherwise offers no issues or concerns at this time. [facility] Medical History Anemia Bilateral renal stones BPH (benign prostatic hyperplasia) Cervical spinal stenosis Degenerative disc disease, cervical Folliculitis History of TIA (transient ischemic attack) Hypercholesterolemia Hypertension Impaired glucose tolerance Nephrolithiasis Obstructive sleep apnea syndrome, moderate Rash, skin Right shoulder pain 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 Sleep apnea Vitamin D deficiency Surgical History H/O lithotripsy History of tonsillectomy Social History Housing: House Alcohol intake: current Patient Tobacco Use Status: Former Tobacco user Tobacco use type: Cigarette Years Smoked: 1989 quit e-Cigarette/Vaping Use: Never Used Second Hand Smoke Exposure: No service: No Current occupational status: retired Current occupation: Right Handed Cognitive needs: No Hearing needs: No Vision needs: Yes Review of Systems Const Reports as per HPI Eyes Reports no additional complaints ENT Reports no additional complaints Card Reports as per HPI Resp Reports as per HPI GI Reports no additional complaints Reports as per HPI Musc Reports no additional complaints Neuro Reports no additional complaints Psych Reports no additional complaints Endo Reports no additional complaints Perry/Lymph Reports no additional complaints Aller/Immun Reports no additional complaints Physical Exam Const General: cooperative, healthy appearing, comfortable, no acute distress, well developed, alert and awake Nutritional Appearance: average body habitus Orientation/consciousness: patient oriented x3 Limitations: no limitations HEENT Head: Yes normal to inspection, Yes normocephalic and Yes atraumatic Ears: hearing grossly normal bilaterally Eyes General: appearance normal, both eyes and all related structures Neck Neck: Yes normal visual inspection and Yes trachea midline Chest Chest palpation & inspection: normal inspection of the chest Resp Effort & Inspection: normal respiratory effort and able to speak in complete sentences Cardio Rate: regular rate GI Inspection: Yes normal to inspection General: Yes no CVA tenderness Back/Spine/Pelvis Back: no CVA tenderness Cervical Spine: normal cervical lordosis Neuro General: patient oriented x3 Extrem General: Yes normal to inspection Psych Appearance: grossly normal and well kempt Mental Status: mental status grossly normal Speech and movement: Normal speech and movement present and Clear speech present Affect: normal affect Attitude: cooperative Thought process: Normal thought process present Thought content: Normal thought content present Insight: Good insight present (Psych) Judgement: Good judgement present (Psych) Office Procedures Post Void Residual Post Residual Void Post Void Residual (PVR): 0 [id number] Void Residual by ultrasound Results AMB Urinalysis, Automated UA Leukoctes 0 Dee/uL Last Edit by Cle[employer] on 03/21/23 12:08 UA Nitrite Last Edit by [employer] on 03/21/23 12:08 UA Urobilinogen 0.2 mg/dL Last Edit by [employer] on 03/21/23 12:08 UA Protein 15 mg/dL Last Edit by [employer] on 03/21/23 12:08 UA pH 6.0 Last Edit by [employer] on 03/21/23 12:08 UA Blood 0 Jonathan/uL Last Edit by [employer] on 03/21/23 12:08 UA Specific [place] 1.030 Last Edit by [employer] on 03/21/23 12:08 UA Ketone Negative Last Edit by [employer] on 03/21/23 12:08 UA Bilirubin 1 mg/dL Last Edit by [employer] on 03/21/23 12:08 UA Glucose 0 mg/dL Last Edit by [employer] on 03/21/23 12:08 Results Reviewed Results Reviewed: Laboratory Last Values Urine pH (Auto) 6.0 03/21/23 11:40 Specific [place] (Auto) 1.030 03/21/23 11:40 Urine Protein (Auto) 15 mg/dL 03/21/23 11:40 Glucose (UA)(Auto) 0 mg/dL 03/21/23 11:40 Urine Ketones (Auto) Negative 03/21/23 11:40 Urine Blood (Auto) 0 Jonathan/uL 03/21/23 11:40 Urine Bilirubin (Auto) 1 mg/dL 03/21/23 11:40 Urine Urobilinogen (Auto) 0.2 mg/dL 03/21/23 11:40 Leukocyte Esterase (Auto) 0 Dee/uL 03/21/23 11:40 Date of Service: 02/26/23 EXAMINATION: US RETROPERITONEAL COMPLETE (RENAL) FINDINGS: RIGHT KIDNEY: 11.4 x 5.2 x 6.0 cm (SAG x AP x TRV). The kidney is normal in size, contour, and echogenicity. Renal cortical thickness is normal. No calculi. No hydronephrosis. 1.5 x 1.3 x 1.4 cm simple lower pole cyst is seen. No follow-up imaging of this finding is recommended. LEFT KIDNEY: 11.7 x 5.6 x 6.6 cm (SAG x AP x TRV). The kidney is normal in size, contour, and echogenicity. Renal cortical thickness is normal. No calculi or focal parenchymal lesions. No hydronephrosis. BLADDER: Well distended and normal. Bilateral ureteral jets are demonstrated. Prevoid bladder volume is 383 mL. Postvoid bladder volume is 187 mL. 1.0 x 0.5 x 0.7 cm echogenic focus is seen in the bladder with shadowing and truncal artifact consistent with a calculus. ADDITIONAL NOTES: The prostate is enlarged with a volume of 39.2 mL IMPRESSION: 1.? Normal appearance of the kidneys. 2.? Large post void residual. 3.? 1.0 cm bladder calculus. 4.? Enlarged prostate. Assessment & Plan Assessment & Plan (1) Bilateral renal stones: Comment: Lithotripsy Dr. Christina February, May 2018 Code(s): N20.0 - Calculus of kidney (2) Enlarged prostate: Code(s): N40.0 - Benign prostatic hyperplasia without lower urinary tract symptoms (3) Bladder stone: Code(s): N21.0 - Calculus in bladder (4) Renal cyst: Code(s): N28.1 - Cyst of kidney, acquired Plan In office urinalysis results reviewed with the patient today; as noted above. PVR 0 mL's Recent PSA results reviewed with the patient today; as noted above Recent retroperitoneal ultrasound results reviewed with the patient today; as noted above Patient denies any bothersome urinary symptoms at this time. Discussed decreasing finasteride to 3 times per week Continue drinking plenty of water daily and adding 1 oz of lemon juice to water daily. Discussed in office cysto for further assessment evaluation of noted bladder stone on ultrasound. Follow-up in office cystoscopy Orders: Orders AMB Urinalysis Automated Today Z13.9 - Encounter for screening, unspecified AMB Post Void Residual by ultrasound Today N40.1 - Benign prostatic hyperplasia with lower urinary tract symptoms, R35.0 - Frequency of micturition Patient Instructions: The patient had an opportunity to ask questions regarding the treatment plan. All questions were answered. Physical exam, labs, and imaging were discussed and reviewed in detail. As well as risks, benefits, and discussion of treatment choices. No major barriers to understanding were identified. The patient expressed understanding and agreement with the above treatment plan. The patient was made aware they should contact our office by phone for worsening of their current condition, the appearance of new symptoms, or with any questions or concerns. Compliance is encouraged with any medications and follow up testing that is ordered. It is a privilege to be allowed the opportunity to participate in? your urological care.? Again, if you have any questions or concerns If you have any questions or concerns please do not hesitate to contact me. The office is [phone]. This note is constructed using voice recognition software. While every effort has been made to ensure accuracy neurobiologist errors may have been included. Yours sincerely, ANGELO Zavala Coding Level of Care Code Est Pt Level 3 (01524) Diagnoses Bilateral renal stones N20.0 Enlarged prostate N40.0 Bladder stone N21.0 Renal cyst N28.1 CPT Codes Post Residual Void - PVR CPT Code: 47961-[id number] Void Residual by ultrasound ([id number])
== END 2023-03-21 12:21 | disposition home or self-care (01) ==
PROVIDERS: Visit Provider Nurse Practitioner Family
DX: N20.0 Calculus of kidney (principal); N40.0 Benign prostatic hyperplasia without lower urinary tract symptoms; N21.0 Calculus in bladder; N28.1 Cyst of kidney, acquired
CPT/HCPCS: 99213

== ENCOUNTER → 2023-03-21 11:18 | Outpatient (BNVA) | payer MEDICARE, SELFPAY | PROVIDERS: Visit Provider Nurse Practitioner Family | DX: N20.0 Calculus of kidney (principal); N40.0 Benign prostatic hyperplasia without lower urinary tract symptoms; N21.0 Calculus in bladder; N28.1 Cyst of kidney, acquired | CPT/HCPCS: 51798; 99212 ==

== ENCOUNTER 2023-04-20 10:19 | Outpatient (AMB) | payer MEDICARE, SELFPAY ==
--- NOTE | 2023-04-20 05:36 | A.OFFVIS_ITS ---
Intake Intake Visit Reasons: Cysto Intake Note: Patient presents today for a CYSTOSCOPY Procedure: Meds: Finasteride Allergies to Antibiotic: No Known Allergies Blood Thinner: Aspirin Urinalysis test cleared for Cysto Disposible Uro-G Cystoscope Cannula: Lot: [id number] Exp: 12/29/2024 Senior Agricultural Assistant Required: No Accompanied by: Self / Same As Patient Allergies No Known Allergies [No Known Allergies*] Allergy (Verified 04/20/23 10:26) HPI HPI Comments History of Present Illness Details Chung is an 78-year-old male who presents today to the office for a follow-up. 04/20/2023? Chung is followed for office cystoscopy due to renal US findings of bladder stone. He has seen PARKING STATION ATTENDANT. Justyn Cortes on 03/21/2023 for a follow up nephrolithiasis and benign prostatic hyperplasia. Advised the patient to decrease finasteride to 3 times per week at that time. The patient was advised to continue drinking plenty of water daily and adding 1 oz of lemon juice to water daily, and discussed in office cysto for further assessment evaluation of noted bladder stone on ultrasound at that time, and was advised to follow-up? in office Cystoscopy at that time. I reviewed the retroperitoneum US results from 02/26/2023 revealed normal appearance of the kidneys. Large post void residual. 1.0 cm bladder calculus.? Enlarged prostate. I reviewed the PSA results from 02/26/2023 revealed 0.53. He has been on finasteride 5 mg for about a year. Since his last visit, he has been taking it three times a week. He denies any allergies to antibiotics. Evaluation today?UA? leukocytes: negative; blood: negative. Cystoscopy procedure: Consent was obtained to perform cystoscopy procedure. Office cystoscopy was performed today. The patient was provided naproxen 500 mg and Macrobid 100 mg x 1 dose pre-procedure today. Cystoscopy findings: Trilobar enlargement of the prostate was obstructive, and a bladder stone approximately 1-2 cm. Plan: TURP and cystolitholapaxy of bladder stone was discussed to be scheduled. Risks and benefits discussed including bleeding and infection. Need for Vargas catheter was discussed. Advised the patient to discontinue Aspirin 2 weeks prior to the procedure. [facility] Medical History Anemia Bilateral renal stones BPH (benign prostatic hyperplasia) Cervical spinal stenosis Degenerative disc disease, cervical Folliculitis History of TIA (transient ischemic attack) Hypercholesterolemia Hypertension Impaired glucose tolerance Nephrolithiasis Obstructive sleep apnea syndrome, moderate Rash, skin Right shoulder pain 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 Sleep apnea Vitamin D deficiency Surgical History H/O lithotripsy History of tonsillectomy Social History Housing: House Alcohol intake: current Patient Tobacco Use Status: Former Tobacco user Tobacco use type: Cigarette Years Smoked: 1989 quit e-Cigarette/Vaping Use: Never Used Second Hand Smoke Exposure: No service: No Current occupational status: retired Current occupation: Right Handed Cognitive needs: No Hearing needs: No Vision needs: Yes Review of Systems Const Reports as per HPI Eyes Reports no additional complaints ENT Reports no additional complaints Card Reports as per HPI Resp Reports as per HPI GI Reports no additional complaints Reports as per HPI Musc Reports no additional complaints Neuro Reports no additional complaints Psych Reports no additional complaints Endo Reports no additional complaints Perry/Lymph Reports no additional complaints Aller/Immun Reports no additional complaints Physical Exam Const General: healthy appearing, no acute distress and well developed Orientation/consciousness: patient oriented x3 HEENT Head: Yes normocephalic and Yes atraumatic Eyes Conjunctivae: conjunctivae normal Neck Neck: Yes normal visual inspection Chest Chest palpation & inspection: normal inspection of the chest Resp Effort & Inspection: normal respiratory effort Cardio Rate: regular rate GI Inspection: Yes normal to inspection Palpation (GI): Soft to palpation Penis: normal penis Scrotum: scrotum normal Skin General skin exam: no rashes or lesions noted Neuro General: patient oriented x3 Extrem General: No pedal edema Psych Appearance: grossly normal Affect: normal affect Results AMB Urinalysis, Automated UA Leukoctes 0 Dee/uL Last Edit by Karlene Padilla CMA on 04/20/23 10:34 UA Nitrite Negative Last Edit by Karlene Padilla CMA on 04/20/23 10:34 UA Urobilinogen 0.2 mg/dL Last Edit by Karlene Padilla CMA on 04/20/23 10:3 4 UA Protein 0 mg/dL Last Edit by Karlene Padilla CMA on 04/20/23 10:34 UA pH 6.0 Last Edit by Karlene Padilla, CERTIFIED GENETIC COUNSELOR on 04/20/23 10:34 UA Blood 0 Jonathan/uL Last Edit by Karlene Padilla, CERTIFIED GENETIC COUNSELOR on 04/20/23 10:34 UA Specific [place] 1.015 Last Edit by Karlene Padilla, CERTIFIED GENETIC COUNSELOR on 04/20/23 10: 34 UA Ketone Negative Last Edit by Karlene Padilla, CERTIFIED GENETIC COUNSELOR on 04/20/23 10:34 UA Bilirubin 0 mg/dL Last Edit by Karlene Padilla, CERTIFIED GENETIC COUNSELOR on 04/20/23 10:34 UA Glucose 0 mg/dL Last Edit by Karlene Padilla, CERTIFIED GENETIC COUNSELOR on 04/20/23 10:34 Results Reviewed Results Reviewed: Laboratory Last Values Urine pH (Auto) 6.0 04/20/23 10:32 Specific [place] (Auto) 1.015 04/20/23 10:32 Urine Protein (Auto) 0 mg/dL 04/20/23 10:32 Glucose (UA)(Auto) 0 mg/dL 04/20/23 10:32 Urine Ketones (Auto) Negative 04/20/23 10:32 Urine Blood (Auto) 0 Jonathan/uL 04/20/23 10:32 Urine Nitrite (Auto) Negative 04/20/23 10:32 Urine Bilirubin (Auto) 0 mg/dL 04/20/23 10:32 Urine Urobilinogen (Auto) 0.2 mg/dL 04/20/23 10:32 Leukocyte Esterase (Auto) 0 Dee/uL 04/20/23 10:32 Date of Service: 02/26/23 EXAMINATION: US RETROPERITONEAL COMPLETE (RENAL) CLINICAL INFORMATION: Benign prostatic hyperplasia with lower urinary tract symptoms. COMPARISON: None available. FINDINGS: RIGHT KIDNEY: 11.4 x 5.2 x 6.0 cm (SAG x AP x TRV). The kidney is normal in size, contour, and echogenicity. Renal cortical thickness is normal. No calculi. No hydronephrosis. 1.5 x 1.3 x 1.4 cm simple lower pole cyst is seen. No follow-up imaging of this finding is recommended. LEFT KIDNEY: 11.7 x 5.6 x 6.6 cm (SAG x AP x TRV). The kidney is normal in size, contour, and echogenicity. Renal cortical thickness is normal. No calculi or focal parenchymal lesions. No hydronephrosis. BLADDER: Well distended and normal. Bilateral ureteral jets are demonstrated. Prevoid bladder volume is 383 mL. Postvoid bladder volume is 187 mL. 1.0 x 0.5 x 0.7 cm echogenic focus is seen in the bladder with shadowing and truncal artifact consistent with a calculus. ADDITIONAL NOTES: The prostate is enlarged with a volume of 39.2 mL IMPRESSION: 1.? Normal appearance of the kidneys. 2.? Large post void residual. 3.? 1.0 cm bladder calculus. 4.? Enlarged prostate. Assessment & Plan Assessment & Plan (1) Enlarged prostate: Code(s): N40.0 - Benign prostatic hyperplasia without lower urinary tract symptoms (2) Bladder stone: Code(s): N21.0 - Calculus in bladder (3) Renal cyst: Code(s): N28.1 - Cyst of kidney, acquired Plan TURP and cystolitholapaxy of bladder stone was discussed to be scheduled. Risks and benefits discussed including bleeding and infection. Need for Vargas catheter was discussed. Advised the patient to discontinue Aspirin 2 weeks prior to the procedure. Orders: Orders AMB Urinalysis Automated 04/20/23 N39.0 - Urinary tract infection, site not specified, A49.9 - Bacterial infection, unspecified Patient Instructions: The patient had an opportunity to ask questions regarding treatment plan. All questions were answered. Imaging, Laboratory studies and physical exam results were discussed and reviewed in detail. No major barriers to understanding were identified. The patient expressed understanding and agreement with the above treatment plan.? ? ? The patient is aware they should contact our office by phone for worsening of their current condition or the appearance of new symptoms. Compliance is encouraged with any medications and followup testing that is ordered.? ? ? It is a privilege to be allowed the opportunity to participate in the urologic care of your patient. If you have any questions or concerns regarding treatment for the above conditions please do not hesitate to contact me. The office telephone contact is [phone].? ? ? This note is constructed in part using voice recognition software. While every effort has been made to ensure accuracy boiler maker errors may have been included.? ? ? Yours sincerely,? ? ? Gayle Alvarado MD? Coding Level of Care Code Est Pt Level 3 (54752) Diagnoses Enlarged prostate N40.0 Bladder stone N21.0 Renal cyst N28.1 CPT Codes Cystoscopy - CPT: 75615-[id number] ([id number]) Cystoscopy Consent Discussed risk and benefit or proposed procedure with the patient. Information consent for procedure given to the patient. Discussed technical aspects, risks, benefits and alternatives in full. Addressed all of the patient's questions and concerns regarding the procedure. The patient demonstrated knowledge and understanding. They wish to proceed with this procedure. Preparation The patient was prepped in the usual manner. A supervisor public health nursing was present and in the room. Genitalia was prepped with betadine solution in a sterile manner. Lidocaine Jelly 2% was placed into the urethra and 16Fr flexible Olympus cystoscope was inserted into the meatus after adequate lubrication. Procedure Time out per protocol performed. Bladder Inspection Bladder Inspection: The bladder was inspected in its entirety with utilization retroflexion displaying: Tumor(s): none visualized Trabeculation: moderate Mucosal Erthema: mild Orifices: normal shape and position Urethra: normal Cystoscopy findings: prostatic urethra trilobar enlargement, bulbous urethra, bladder stone 1-2 cm, no suspicious bladder lesions visualized [id number] DISPOSABLE SCOPE URO-G FLEXIBLE SCOPE Procedure code (CPT) selection complete
== END 2023-04-20 11:36 | disposition home or self-care (01) ==
PROVIDERS: PCP Internal Medicine; Visit Provider Urology
DX: N40.0 Benign prostatic hyperplasia without lower urinary tract symptoms (principal); N21.0 Calculus in bladder; N28.1 Cyst of kidney, acquired
CPT/HCPCS: 52000; 99213

== ENCOUNTER → 2023-04-20 10:19 | Outpatient (BNVA) | payer MEDICARE, SELFPAY | PROVIDERS: PCP Internal Medicine; Visit Provider Urology | DX: N21.0 Calculus in bladder (principal); N28.1 Cyst of kidney, acquired; N40.0 Benign prostatic hyperplasia without lower urinary tract symptoms | CPT/HCPCS: 52000; 81003; 99212 ==

== ENCOUNTER 2023-05-18 12:04 | Outpatient (AMB) | payer MEDICARE, SELFPAY ==
--- NOTE | 2023-05-18 12:05 | A.OFFVIS_ITS ---
Intake Intake Visit Reasons: surgery questions Intake Note: Patient presents today via telephone visit for Surgery Questions: Meds- Finasteride Allergies to Antibiotic- No Known Allergies Blood Thinner- Aspirin Distilling Department Supervisor Required: No Accompanied by: Self / Same As Patient Allergies No Known Allergies [No Known Allergies*] Allergy (Verified 06/19/23 21:41) HPI HPI Comments History of Present Illness Details Chung is an 78-year-old male who presents today via Tele-health for a follow-up. 05/18/2023? He is followed today for surgery questions. Video attempted. He was last seen by me on 04/20/2023 for Cystoscopy. TURP and cystolitholapaxy of bladder stone was discussed to be scheduled at that time. The patient was advised to discontinue Aspirin 2 weeks prior to the procedure during that time.? I reviewed the retroperitoneum US results from 02/26/2023 revealed normal appearance of the kidneys. Large post void residual. 1.0 cm bladder calculus. Enlarged prostate. I discussed treatment options to include TURP versus Green light laser. I reviewed the risks and benefits include infection, bleeding, and use of Vargas catheter. I discussed potential issues related to bladder dysfunction based on prolonged outlet obstruction from the enlarged prostate. Patient states that he wants to wait until 07/2023 or 08/2023 to have the surgery done, and he prefers laser option at this time. Review of charts: Last visit: 04/20/2023? Cystoscopy procedure: Cystoscopy findings: Trilobar enlargement of the prostate was obstructive, and a bladder stone approximately 1-2 cm. Retroperitoneum US results from 02/26/2023 revealed normal appearance of the kidneys. Large post void residual. 1.0 cm bladder calculus.? Enlarged prostate. PSA results from 02/26/2023 revealed 0.53. 05/18/2023: Plan: Follow-up with Justyn JACK Amie for a bladder scan PVR. I will send a message to schedule green light laser with Dr. Goodrich for 07/2023. 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 US RETROPERITONEAL COMPLETE (RENAL) CLINICAL INFORMATION: Benign prostatic hyperplasia with lower urinary tract symptoms. COMPARISON:? None available. FINDINGS: RIGHT KIDNEY: 11.4 x 5.2 x 6.0 cm (SAG x AP x TRV). The kidney is normal in size, contour, and echogenicity. Renal cortical thickness is normal. No calculi. No hydronephrosis. 1.5 x 1.3 x 1.4 cm simple lower pole cyst is seen. No follow-up imaging of this finding is recommended. LEFT KIDNEY: 11.7 x 5.6 x 6.6 cm (SAG x AP x TRV). The kidney is normal in size, contour, and echogenicity. Renal cortical thickness is normal. No calculi or focal parenchymal lesions. No hydronephrosis. BLADDER: Well distended and normal. Bilateral ureteral jets are demonstrated. Prevoid bladder volume is 383 mL. Postvoid bladder volume is 187 mL. 1.0 x 0.5 x 0.7 cm echogenic focus is seen in the bladder with shadowing and truncal artifact consistent with a calculus. ADDITIONAL NOTES: The prostate is enlarged with a volume of 39.2 mL IMPRESSION:? 1.? Normal appearance of the kidneys. 2.? Large post void residual. 3.? 1.0 cm bladder calculus. 4.? Enlarged prostate Assessment & Plan Assessment & Plan (1) Renal cyst: Code(s): N28.1 - Cyst of kidney, acquired (2) Bladder stone: Comment: February 2023Normal appearance of the kidneys. 2. Large post void residual. 3. 1.0 cm bladder calculus. 4. Enlarged prostate. Code(s): N21.0 - Calculus in bladder (3) Enlarged prostate: Comment: February 2023 Normal appearance of the kidneys. 2. Large post void residual. 3. 1.0 cm bladder calculus. 4. Enlarged prostate. Code(s): N40.0 - Benign prostatic hyperplasia without lower urinary tract symptoms Plan Follow-up with CONTINUOUS LINTER DRIER OPERATOR, Sophia Alejandra for a bladder scan PVR. I will send a message to schedule green light laser with Dr. Goodrich 07/2023. Patient Instructions: The patient had an opportunity to ask questions regarding treatment plan. All questions were answered. Imaging, Laboratory studies and physical exam results were discussed and reviewed in detail. No major barriers to understanding were identified. The patient expressed understanding and agreement with the above treatment plan.? ? ? The patient is aware they should contact our office by phone for worsening of their current condition or the appearance of new symptoms. Compliance is encouraged with any medications and followup testing that is ordered.? ? ? It is a privilege to be allowed the opportunity to participate in the urologic care of your patient. If you have any questions or concerns regarding treatment for the above conditions please do not hesitate to contact me. The office telephone contact is [phone].? ? ? This note is constructed in part using voice recognition software. While every effort has been made to ensure accuracy steel sash erector errors may have been included.? ? ? Yours sincerely,? ? ? Gayle Alvarado MD? ? Telehealth Telehealth Location of provider rendering services: practice address Location of patient: address on file Patient Identification confirmed using: Name, : Yes Telehealth method: voice only Patient verbally consented to treatment: Yes Patient verbally consented to billing insurance company: Yes Patient informed of any privacy concerns related to visit: Yes Minutes spent on Phone/Video with Pt.: 29 Coding Level of Care Code Tele Est Pt Level 4 (23075) Diagnoses Renal cyst N28.1 Bladder stone N21.0 Enlarged prostate N40.0
== END 2023-05-18 13:39 | disposition home or self-care (01) ==
LOC: HO.HUSH 12:04
PROVIDERS: PCP Internal Medicine; Visit Provider Urology
DX: N28.1 Cyst of kidney, acquired (principal); N21.0 Calculus in bladder; N40.0 Benign prostatic hyperplasia without lower urinary tract symptoms
CPT/HCPCS: 99443

== ENCOUNTER → 2023-05-18 12:04 | Outpatient (BNVA) | payer MEDICARE, SELFPAY | PROVIDERS: PCP Internal Medicine; Visit Provider Urology ==

== ENCOUNTER 2023-06-19 14:02 | Outpatient (AMB) | payer MEDICARE, SELFPAY ==
--- NOTE | 2023-06-19 14:34 | A.OFFVIS_ITS ---
Intake Intake Visit Reasons: 1 mo/ PVR Intake Note: Patient presents today for follow up visit for Surgery Questions Urology Medications: Finasteride Blood Thinner: Aspirin Helper Marble Finisher Required: No Accompanied by: Self / Same As Patient Allergies No Known Allergies [No Known Allergies*] Allergy (Verified 06/19/23 21:41) Medication List - Last Reconciled 06/19/23 by ANGELO Zavala aspirin (Adult Aspirin Regimen) 81 mg PO DAILY cholecalciferol (vitamin D3) 25 mcg PO DAILY CPAP As directed finasteride 5 mg PO DAILY 90 days ibuprofen 600 mg PO Q6H PRN rosuvastatin 5 mg PO DAILY HPI HPI Comments History of Present Illness Details Chung is a pleasant 78-year-old male patient of Dr. Barron. He has a past medical history of nephrolithiasis, anemia, cervical spinal stenosis, hypertension, degenerative disc disease, obstructive sleep apnea, vitamin-D deficiency, history of TIA in 2013, hypercholesteremia, and folliculitis. He presents to the office today for follow-up. Of note, patient was followed up on via telehealth with Dr. Ugarte approximately 1 month ago to discuss plan of care regarding bladder stone and enlarged prostate. He returns to the office today to discuss procedure. Discussed at length risks and benefits of surgical procedure. All questions were answered. Patient underwent in office cystoscopy on 04/20/[address] Ugarte noting trilobar enlargement of the prostate was obstructive, and a bladder stone approximately 1-2 cm. Recommendations were made for TURP versus GreenLight laser as well as cystolitholapaxy of 1.0cm bladder stone. Retroperitoneal US results from 02/26/2023 revealed normal appearance of the kidneys. Large post void residual, 1.0 cm bladder calculus, and enlarged prostate. PSA 03/18--0.5. He reports compliance with finasteride 3 times per week. He currently denies any bothersome urinary issues or concerns. 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 Sleep apnea Rash, skin Right shoulder pain Folliculitis Surgical History H/O lithotripsy History of tonsillectomy Social History Housing: House Alcohol intake: current Patient Tobacco Use Status: Former Tobacco user Tobacco use type: Cigarette Years Smoked: 1989 quit e-Cigarette/Vaping Use: Never Used Second Hand Smoke Exposure: No service: No Current occupational status: retired Current occupation: Right Handed Cognitive needs: No Hearing needs: No Vision needs: Yes Review of Systems Const Reports as per [facility] Eyes Reports no additional complaints ENT Reports no additional complaints Card Reports as per [facility] Resp Reports as per [facility] GI Reports no additional complaints Reports as per [facility] Musc Reports as per [facility] Neuro Reports as per [facility] Psych Reports no additional complaints Endo Reports no additional complaints Physical Exam Const General: cooperative, healthy appearing, comfortable, no acute distress, well developed, alert and awake Nutritional Appearance: average body habitus Orientation/consciousness: patient oriented x3 Limitations: no limitations HEENT Head: Yes normal to inspection, Yes normocephalic and Yes atraumatic Ears: hearing grossly normal bilaterally Eyes General: appearance normal, both eyes and all related structures Neck Neck: Yes normal visual inspection and Yes trachea midline Chest Chest palpation & inspection: normal inspection of the chest Resp Effort & Inspection: normal respiratory effort and able to speak in complete sentences Cardio Rate: regular rate GI Inspection: Yes normal to inspection General: Yes no CVA tenderness Back/Spine/Pelvis Back: no CVA tenderness Cervical Spine: normal cervical lordosis Neuro General: patient oriented x3 Extrem General: Yes normal to inspection Psych Appearance: grossly normal and well kempt Mental Status: mental status grossly normal Speech and movement: Normal speech and movement present and Clear speech present Affect: normal affect Attitude: cooperative Thought process: Normal thought process present Thought content: Normal thought content present Insight: Good insight present (Psych) Judgement: Good judgement present (Psych) Results AMB Urinalysis, Automated UA Leukoctes 0 Dee/uL Last Edit by Dyan Phillips on 06/19/23 14:57 UA Nitrite Negative Last Edit by Dyan Phillips on 06/19/23 14:57 UA Urobilinogen 0.2 mg/dL Last Edit by Dyan Phillips on 06/19/23 14:57 UA Protein 0 mg/dL Last Edit by Kendrickyccathie Phillips on 06/19/23 14:57 UA pH 6.0 Last Edit by Dyan Phillips on 06/19/23 14:57 UA Blood 0 Jonathan/uL Last Edit by Dyan Phillips on 06/19/23 14:57 UA Specific [place] 1.025 Last Edit by Dyan Phillips on 06/19/23 14:57 UA Ketone Negative Last Edit by Dyan Phillips on 06/19/23 14:57 UA Bilirubin 0 mg/dL Last Edit by Dyan Phillips on 06/19/23 14:57 UA Glucose 0 mg/dL Last Edit by Dyan Phillips on 06/19/23 14:57 Results Reviewed Results Reviewed: Laboratory Last Values Urine pH (Auto) 6.0 06/19/23 14:55 Specific [place] (Auto) 1.025 06/19/23 14:55 Urine Protein (Auto) 0 mg/dL 06/19/23 14:55 Glucose (UA)(Auto) 0 mg/dL 06/19/23 14:55 Urine Ketones (Auto) Negative 06/19/23 14:55 Urine Blood (Auto) 0 Jonathan/uL 06/19/23 14:55 Urine Nitrite (Auto) Negative 06/19/23 14:55 Urine Bilirubin (Auto) 0 mg/dL 06/19/23 14:55 Urine Urobilinogen (Auto) 0.2 mg/dL 06/19/23 14:55 Leukocyte Esterase (Auto) 0 Dee/uL 06/19/23 14:55 Assessment & Plan Assessment & Plan (1) Renal cyst: Code(s): N28.1 - Cyst of kidney, acquired (2) Bladder stone: Comment: February 2023Normal appearance of the kidneys. 2. Large post void residual. 3. 1.0 cm bladder calculus. 4. Enlarged prostate. Code(s): N21.0 - Calculus in bladder (3) Enlarged prostate: Comment: February 2023 Normal appearance of the kidneys. 2. Large post void residual. 3. 1.0 cm bladder calculus. 4. Enlarged prostate. Code(s): N40.0 - Benign prostatic hyperplasia without lower urinary tract symptoms Plan: Risks, benefits and alternatives to therapy were discussed. These include but are not limited to infection, bleeding, damage to local organs and tissues, need for further interventions. ? Anesthetic risks regarding cardiac arrhythmia, blood clots, and potential mortality were discussed. The patient understands the typical recovery time and the outpatient nature of the procedure. After consideration of these risks the patient gives full informed consent and they wish to move ahead with the procedure. Plan In office urinalysis results reviewed with the patient today; as noted above. Discussed at length risks and benefits of surgical procedure; as noted above. Patient denies any bothersome urinary issues at this time. All questions were answered. Continue finasteride 2 times per week as discussed Keep scheduled surgical appointment as discussed with Dr. Goodrich Follow-up status post surgical intervention per Dr. Vicente orders; or sooner with any issues, concerns, and or questions. Orders: Orders AMB Urinalysis Automated Today Z13.9 - Encounter for screening, unspecified Patient Instructions: The patient had an opportunity to ask questions regarding the treatment plan. All questions were answered. Physical exam, labs, and imaging were discussed and reviewed in detail. As well as risks, benefits, and discussion of treatment choices. No major barriers to understanding were identified. The patient expressed understanding and agreement with the above treatment plan. The patient was made aware they should contact our office by phone for worsening of their current condition, the appearance of new symptoms, or with any questions or concerns. Compliance is encouraged with any medications and follow up testing that is ordered. It is a privilege to be allowed the opportunity to participate in? your urological care.? Again, if you have any questions or concerns If you have any questions or concerns please do not hesitate to contact me. The office is [phone]. This note is constructed using voice recognition software. While every effort has been made to ensure accuracy associate property manager errors may have been included. Yours sincerely, ANGELO Zavala Coding Level of Care Code Est Pt Level 4 (36334) Diagnoses Renal cyst N28.1 Bladder stone N21.0 Enlarged prostate N40.0
== END 2023-06-19 15:46 | disposition home or self-care (01) ==
PROVIDERS: PCP Internal Medicine; Visit Provider Nurse Practitioner Family
DX: N28.1 Cyst of kidney, acquired (principal); N21.0 Calculus in bladder; N40.0 Benign prostatic hyperplasia without lower urinary tract symptoms
CPT/HCPCS: 99214

== ENCOUNTER → 2023-06-19 14:02 | Outpatient (BNVA) | payer MEDICARE, SELFPAY | PROVIDERS: PCP Internal Medicine; Visit Provider Nurse Practitioner Family | DX: N40.0 Benign prostatic hyperplasia without lower urinary tract symptoms (principal); N28.1 Cyst of kidney, acquired; N21.0 Calculus in bladder | CPT/HCPCS: 81003; 99212 ==

== ENCOUNTER 2023-07-24 13:46 | Outpatient (AMB) | payer MEDICARE, SELFPAY ==
[2023-07-24 13:56] VITALS: BP 160/66; PULSE 59; O2SAT 98; BMI 26.7
--- NOTE | 2023-07-24 13:56 | MHC.PC.OV ---
Vital Signs 07/24/23 13:56 07/24/23 14:12 Height 5 ft 11 in Weight 191 lb 4 oz BMI 26.7 BP 160/66 H 142/68 H Blood Pressure Location Lt brachial Lt brachial Position Sitting Sitting Pulse 59 Pulse Source Pulse Oximeter Pulse Oximetry (%) 98 Oxygen Delivery Method Room Air Intake Visit Reasons: Greenlight laser and bladder stone removal 08/06 Strategic Procurement Manager Required: No Accompanied by: Self / Same As Patient Allergies No Known Allergies [No Known Allergies*] Allergy (Verified 07/24/23 13:56) Tobacco use date assessed: 03/15/23 Fall risk assessment: No Falls in past year Last assessed Fall Risk: 07/24/23 Dental Screening Dental Screen Date: 07/24/23 Did you have a dental visit in the last 12 months?: Yes Did you have a dental problem in the last 6 months where you did not have access to dental care?: No Was dental information given to patient?: Patient has dentist HPI HPI Comments History of Present Illness Details 78-year-old male past medical history significant for hypercholesteremia, impaired glucose tolerance, BPH, JACQUELYN on CPAP, hypertension and bilateral renal stones. Patient patient presents today for preop appointment for GreenLight laser surgery and bladder stone removal scheduled on 08/06/[address] Goodrich, under general anesthesia. Patient denies prior complications anesthesia. Denies chest pain, palpitations, shortness of breath and syncope. Blood pressure initially elevated office 160/66, repeat blood pressure below goal 142/68. Preop blood work significant for mild anemia at 13.8/41.8 otherwise unremarkable. EKG in office: Sinus rhythm with right bundle branch block. No previous EKGs on file to compare however patient reports he was told in the past that he did have RBBB. 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 Sleep apnea Rash, skin Right shoulder pain Folliculitis Surgical History H/O lithotripsy History of tonsillectomy Social History Housing: House Alcohol intake: current Patient Tobacco Use Status: Former Tobacco user Tobacco use type: Cigarette Years Smoked: 1989 quit e-Cigarette/Vaping Use: Never Used Second Hand Smoke Exposure: No service: No Current occupational status: retired Current occupation: Right Handed Cognitive needs: No Hearing needs: No Vision needs: Yes Questionnaire Thrive Questionnaire Date Thrive assessed: 03/15/23 AMI-7 AMB Questionnaire AMI-7 Date AMI - 7 assessed: 03/15/23 Source: Developed by Drs. Nacho Carvalho, Alta Rivera, Greg Torres and colleagues, with an educational ger from [employer]. Review of Systems Const Denies chills, Denies fatigue, Denies fever(s) and Denies poor appetite Eyes Denies no additional complaints ENT Reports Normal hearing present Card Denies chest pain, Denies syncope, Denies rapid heart rate and Denies dyspnea Resp Denies cough and Denies dyspnea GI Denies change in stool character, Denies constipation, Denies diarrhea, Denies nausea and Denies vomiting Denies dysuria, Denies urinary frequency and Denies urinary urgency Neuro Reports Normal hearing present, Denies confusion and Denies syncope Psych Denies confusion Endo Denies fatigue Physical exam (Primary Care) Vital Signs: Last Vital Signs Pulse 59 07/24/23 13:56 BP 142/68 H 07/24/23 14:12 Pulse Ox 98 07/24/23 13:56 Oxygen Delivery Method Room Air 07/24/23 13:56 BMI result Body Mass Index 26.7 Tobacco/Smoking Status: Tobacco use Status Tobacco use date assessed 03/15/23 07/24/23 14:03 Patient Tobacco Use Status Former Tobacco user 07/24/23 14:03 Tobacco use type Cigarette 07/24/23 14:03 e-Cigarette/Vaping Use Never Used 07/24/23 14:03 Thrive Assessment: Date of Thrive Assessment Date Thrive assessed 03/15/23 07/24/23 14:03 Const General: No confusion Orientation/consciousness: No confusion HENMT Head: Yes normocephalic and Yes atraumatic Eyes Conjunctivae: conjunctivae normal Chest Chest palpation & inspection: normal inspection of the chest Resp Effort & Inspection: normal respiratory effort Auscultation: clear to auscultation bilaterally, no crackles, no rhonchi and no wheezes Cardio Rate: regular rate Rhythm: regular rhythm Heart sounds: S1 normal heart sound present and S2 normal heart sound present GI Inspection: Yes normal to inspection Neuro General: No confusion Cranial nerves: Yes Normal hearing present Extrem General: No edema Assessment and Plan Assessment & Plan (1) Hypertension: Code(s): I10 - Essential (primary) hypertension Qualifiers: Hypertension type: primary hypertension Qualified Code(s): I10 - Essential (primary) hypertension Plan: Blood pressure goal less than 140/90. Patient advised to follow low-salt diet and exercise. (2) Preop examination: Code(s): Z01.818 - Encounter for other preprocedural examination Plan: Patient reports he was advised by surgeon to discontinue aspirin therapy 14 days prior to procedure. Patient states he has already stop taking his aspirin. Preop lab work significant for mild anemia otherwise on remarkable EKG in office showed sinus rhythm with right bundle branch block. No further workup needed at this time and patient can proceed with scheduled procedure. [facility] Surgical Risk: 0.1% Risk of myocardial infarction or cardiac arrest, intraoperatively or up to 30 days post-op. Plan Keep scheduled follow-up with PCP Orders: Orders Comprehensive Met. Panel 07/25/23 Z01.812 - Encounter for preprocedural laboratory examination TSH reflex Free T4 07/25/23 Z13.29 - Encounter for screening for other suspected endocrine disorder Prothrombin Time INR 07/25/23 Z01.812 - Encounter for preprocedural laboratory examination Complete Blood Count Auto Diff 07/25/23 Z13.0 - Encounter for screening for diseases of the blood and blood-forming organs and certain disorders involving the immune mechanism Coding Level of Care Code Est Pt Level 3 (59098) Diagnoses Primary hypertension I10 Hypertension type: primary hypertension Preop examination Z01.818
[2023-07-24 14:12] VITALS: BP 142/68
== END 2023-07-24 15:15 | disposition home or self-care (01) ==
PROVIDERS: PCP Internal Medicine; Visit Provider Nurse Practitioner Family
DX: I10 Essential (primary) hypertension (principal); Z01.818 Encounter for other preprocedural examination
CPT/HCPCS: 99213

== ENCOUNTER 2023-07-25 10:21 | Outpatient (REF) | payer MEDICARE, SELFPAY ==
[2023-07-25 13:20] LABS: MANUAL DIFF FLAG NO
[2023-07-25 13:36] LABS: Basophils Percent Auto 0.5 % (0-2); Eosinophils Absolute Auto 0.2 X10*3/uL (0.0-0.4); Eosinophils Percent Auto 2.5 % (0-4); Hematocrit 41.4 % (42.0-52.0); Hemoglobin 13.8 g/dl (14.0-18.0); Imm Gran Abs Auto 0.01 X10*3/uL (0.00-0.03); Imm Gran Pct Auto 0.2 % (0.0-0.4); Lymphocytes Absolute Auto 2.3 X10*3/uL (1.2-4.9); Lymphocytes Percent Auto 38.3 % (20-40); Mean Corpuscular HGB Conc 33.3 g/dl (31.0-36.0); Mean Corpuscular Hemoglobin 29.9 pg (27.0-33.0); Mean Corpuscular Volume 89.6 fL (80.0-98.0); Mean Platelet Volume 10.3 fL (9.4-12.4); Monocytes Absolute Auto 0.3 X10*3/uL (0.1-1.2); Monocytes Percent Auto 5.4 % (2-11); Neutrophils Absolute Auto 3.2 x10*3/uL (2.0-8.3); Neutrophils Percent Auto 53.1 % (45-73); Platelet Count 201 X10*3/uL (160-400); Red Blood Count 4.62 X10*6/uL (4.60-5.80); Red Cell Distribution Width 12.5 % (11.0-16.0)
[2023-07-25 13:39] LABS: INTERNATIONAL NORM RATIO 0.9 (0.9-1.1); Prothrombin Time 11.3 SEC (11.1-13.3)
[2023-07-25 14:09] LABS: Alanine Aminotransferase 23 U/L (0-40); Albumin Level 4.3 g/dL (3.5-5.0); Alkaline Phosphatase 50 U/L (39-117); Anion Gap 10 (12-20); Aspartate Amino Transferase 20 U/L (5-37); Bilirubin Total 0.5 mg/dL (0.0-1.0); Blood Urea Nitrogen 16 mg/dL (9-16); Calcium 9.7 mg/dL (8.4-10.2); Carbon Dioxide 30 mmol/L (22-29); Chloride 106 mmol/L (96-108); Estimated Glomerular Filt Rate > 60; Glucose Random 134 mg/dL (60-115); Potassium 4.4 mmol/L (3.3-5.1); Sodium 142 mmol/L (135-145); Total Protein 6.9 g/dL (6.5-8.0)
== END 2023-07-25 10:22 | disposition home or self-care (01) ==
LOC: HO.HMGCLDS 10:21
PROVIDERS: PCP Internal Medicine; Visit Provider Nurse Practitioner Family
DX: Z01.812 Encounter for preprocedural laboratory examination (principal); Z13.29 Encounter for screening for other suspected endocrine disorder; Z13.0 Encounter for screening for diseases of the blood and blood-forming organs and certain disorders involving the immune mechanism
CPT/HCPCS: 36415; 80053; 84443; 85025; 85610

== ENCOUNTER 2023-08-06 09:34 | Day surgery (SDC) | payer MEDICARE, SELFPAY ==
[2023-08-02 10:44] VITALS: BMI 26.6
--- NOTE | 2023-08-03 11:02 | P.CONAN_ITS ---
Documented by User: Alivia Fontanez NP 08/03/23 11:03 HPI - Anesthesia Eval Consult details Narrative: 78yo M for Laser Ablation Prostate w/Green Light,with stone removal, Medically optimized per PCP [facility] Active Problems Active Problems: All Active Problems (Updated 08/02/23 @ 10:39 by Cady Choi RN) Renal cyst (Acute) Bladder stone (Acute) Enlarged prostate (Acute) Retinal scar of left eye (Acute) Anemia of chronic disease (Acute) Osteoarthritis of left knee (Acute) Painful arc syndrome of right shoulder (Acute) Annual physical exam (Acute) Bilateral renal stones (Acute) Hypertension (Acute) Degenerative disc disease, cervical (Acute) Obstructive sleep apnea syndrome, moderate (Acute) BPH (benign prostatic hyperplasia) (Acute) Impaired glucose tolerance (Acute) Hypercholesterolemia (Acute) Past Medical History Medical History (Updated 08/06/23 @ 10:09 by Loretta Contreras RN) Nephrolithiasis Anemia Cervical spinal stenosis Hypertension Degenerative disc disease, cervical Obstructive sleep apnea syndrome, moderate Vitamin D deficiency BPH (benign prostatic hyperplasia) Bilateral renal stones History of TIA (transient ischemic attack) Impaired glucose tolerance Hypercholesterolemia 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 Rash, skin Right shoulder pain Folliculitis Surgical History Surgical History Hx of cystoscopy H/O colonoscopy H/O lithotripsy History of tonsillectomy Social History Social History Housing: House Alcohol intake: current Patient Tobacco Use Status: Former Tobacco user Quit Date: 40 yrs ago Tobacco use type: Cigarette Years Smoked: 1989 quit e-Cigarette/Vaping Use: Never Used Second Hand Smoke Exposure: No Use of substances other than those prescribed or required for medical reasons: No Are you DNR?: No Advance Directives: No Advance Directives Information Provided: Yes service: No Current occupational status: retired Current occupation: Right Handed Cognitive needs: No Hearing needs: No Vision needs: Yes Meds Allergies Allergy/AdvReac Type Severity Reaction Status Date / Time No Known Allergies Allergy Verified 08/06/23 10:12 [No Known Allergies*] Home Medications Medication Instructions Recorded Confirmed Last Taken Type aspirin 81 mg tablet,delayed 81 mg PO DAILY 08/16/20 08/06/23 Unknown History release (Adult Aspirin Regimen) cholecalciferol (vitamin D3) 25 25 mcg PO DAILY 03/08/21 08/06/23 Unknown History mcg (1,000 unit) capsule Exam Height,Weight and Vital Signs: Height 5 ft 11 in Weight 86.636 kg Pertinent Lab Results Pertinent Lab Results: Laboratory Tests 07/25/23 10:28 WBC 6.0 Hgb 13.8 L Hct 41.4 L Plt Count 201 Sodium 142 Potassium 4.4 Chloride 106 Carbon Dioxide 30 H BUN 16 Creatinine 0.82 Narrative Narrative: EKG 07/2023 Sinus rhythm with right bundle branch block. Assessment and Plan Assessment Anesthesia Assessment: Chart Reviewed Documented by User: Smitha Cooper MD 08/06/23 10:37 [facility] Past Medical History Medical History (Updated 08/06/23 @ 10:09 by Loretta Contreras RN) Nephrolithiasis Anemia Cervical spinal stenosis Hypertension Degenerative disc disease, cervical Obstructive sleep apnea syndrome, moderate Vitamin D deficiency BPH (benign prostatic hyperplasia) Bilateral renal stones History of TIA (transient ischemic attack) Impaired glucose tolerance Hypercholesterolemia 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 Rash, skin Right shoulder pain Folliculitis Family History Family history of problems with anesthesia: No Surgical History Surgical History Hx of cystoscopy H/O colonoscopy H/O lithotripsy History of tonsillectomy History of Problems with Anesthesia: No Social History Social History Housing: House Alcohol intake: current Patient Tobacco Use Status: Former Tobacco user Quit Date: 40 yrs ago Tobacco use type: Cigarette Years Smoked: 1989 quit e-Cigarette/Vaping Use: Never Used Second Hand Smoke Exposure: No Use of substances other than those prescribed or required for medical reasons: No Are you DNR?: No Advance Directives: No Advance Directives Information Provided: Yes service: No Current occupational status: retired Current occupation: Right Handed Cognitive needs: No Hearing needs: No Vision needs: Yes Meds Allergies Allergy/AdvReac Type Severity Reaction Status Date / Time No Known Allergies Allergy Verified 08/06/23 10:12 [No Known Allergies*] Home Medications Medication Instructions Recorded Confirmed Last Taken Type aspirin 81 mg tablet,delayed 81 mg PO DAILY 08/16/20 08/06/23 Unknown History release (Adult Aspirin Regimen) cholecalciferol (vitamin D3) 25 25 mcg PO DAILY 03/08/21 08/06/23 Unknown History mcg (1,000 unit) capsule Exam Airway Mallampati Class: II TM Dist: >3cm Neck ROM: Full Heart: rrr Lungs: cta Assessment and Plan Assessment Anesthesia Assessment: Anesthesia Plan Discussed Final Anesthetic Review Family History of Problems with Anesthesia: No History of Problems with Anesthesia: No NPO: Yes ASA Class: II Final Preanesthetic Review: No Changes in Pt Med Stat, Meds/Allgs Chart Reviewed and Consent Obtained/Reviewed Patient Risk: Intermediate Procedure Risk: Intermediate Anesthetic Plan Anesthetic Plan: GA Disposition: Standard PACU
[2023-08-06 10:14] VITALS: BMI 26.7
[2023-08-06 10:20] VITALS: BP 171/73; PULSE 57; RESP 15; TEMP 36.7; O2SAT 98
[2023-08-06] MEDS: Lactated Ringers 1,000 ML 100 ML IVCONT (10:37)
--- NOTE | 2023-08-06 12:55 | MHC.SHP ---
Pre-Procedural Eval Section A Date of Service: 08/06/23 The patient is an INPATIENT: No Changes since office visit: No Cold of Flu in the past 2 weeks, No New Medical Problems, No Changes in Medication and No Patient answered all questions The History & Physical has been completed within 30 days and I have reviewed it.: Yes Section B Chief Complaint: Benign prostatic hyperplasia without lower urinary Details of Present Illness: bladder stone and BPH Allergies: Allergies Allergy/AdvReac Type Severity Reaction Status Date / Time No Known Allergies Allergy Verified 08/06/23 10:12 [No Known Allergies*] Review of Systems Sugical H&P ROS: Negative: Constitution, Cardiovascular, Respiratory, Neurological, Psychiatric, Hem-Onc, Allergic/Immunologic, Gastrointestinal, Genitourinary, Musculoskeletal, Integumentary, Endocrine and Eyes/Ears/Nose/Throat Exam Surgical H&P Exam: Normal: HEENT, Normal: Heart, Normal: Lungs, Normal: Extremities, Normal: Abdomen, Normal: Skin and Normal: Neurological Plan Diagnosis/Plan: Unchanged ( cystoscopy, bladder stone removal, GreenLight laser prostate) I have reviewed the history and physical and performed a pertinent physical examination on my patient. No changes have occurred unless specified. Time Spent With Patient Time: Total time managing care of this patient today ____ minutes.
[2023-08-06 14:26] VITALS: BP 181/74; PULSE 63; RESP 16; TEMP 36.1; O2SAT 95
--- NOTE | 2023-08-06 14:29 | P.OP_ITS ---
Operative Note Operative Note Date of Service: 08/06/23 Narrative: PreOperative Diagnosis: 1. Bladder stone 2. Bladder outlet obstruction Post Operative Diagnosis: see above Procedure: 1. bladder stone laser and removal 21. GreenLight Laser Enucleation of the prostate Surgeon: Dr Pipo Goodrich Anesthesia: General History of bladder outlet obstruction. Treated with alpha-liyah and other medications. Still with symptoms. On cystoscopy in office has bilobed prostate with bladder stone. Recommendation for prostate procedure with laser enucleation of prostate. Risks and benefits have been discussed. Focus was placed on development of retrograde ejaculation which is a normal part of this procedure. Procedure: After informed consent was verified the patient was brought to the operating room and placed in a supine position. Anesthesia was administered per protocol. Patient was placed in modified dorsal lithotomy position and prepped and draped in a sterile fashion. Safety pause time-out was confirmed. Antibiotics have been given. A Twenty-four Nauruan laser cystoscope was inserted per urethra. No abnormaliti es were found of the anterior and bulbar urethra. The bladder was examined and both ureteric orifices were seen in their normal positions away from the area of interest. 1.5 cm bladder stone found within prostate. Using 900nm holmium laser fiber the stone broken Into small pieces and irrigated from bladder. Using a GreenLight laser with settings of 80 w incisions were made at the 5 and 7 o'clock position. The incisions were taken down from the bladder neck down to the level of the veru. These were gradually deepened in order to define the lateral aspects of the median lobe area. Once clearly defined they will also extended in the lateral directions in order to create a deep groove. The median lobe was then ablated and enucleated tissue released into the bladder with the laser power increased to 120 W. Once the median lobe area had been cleared attention was directed to the lateral lobes. Starting with the patient's left lateral lobe. First the 05:00 o'clock groove was further developed. This was moved in the lateral direction to undermine the tissue on the lateral side running from the bladder neck to the prostate apex. laser power increased to 140 w Focus was then placed on the laser at the 1 o'clock position to developing a secondary groove down to the level of bladder fibers. The creation of a second deep groove defined a segment of intervening tissue similar to a slice of orange. At the apex of the prostate the 2 grooves were linked the us releasing the intervening tissue. This tissue was then removed with a combination of enucleation and ablation working from the apex toward the bladder neck. A similar procedure was repeated on the patient's right-hand side. The only differences being the position of the lateral groove at he 7 'oclock positioin and the secondary groove at the 11 o'clock position, Otherwise the procedure was developed in a mirror fashion. After the majority of tissue had been debulked remnant tissue was ablated with the side fire laser and the curve of the prostate followed up each side wall clearly defining the anterior remnant strip that remained between the 11 and 1 o'clock positions. When this was had been completed debris and pieces of prostate were removed from the bladder with irrigation. Both ureteric orifices were reviewed again in shown to be patent in away from any areas of energy damage. The apical area was reviewed in any stray ooze was controlled. A 22 Nauruan 30 cc balloon Vargas catheter was placed over a stylet into the bladder. Clear efflux was obtained upopn irrigation with a Bere piston syringe. 30 cc was placed in the balloon and gentle traction was placed. A snap was used to hold tension on the catheter to control bleeding during patient moved and transported. A drainage bag was placed. Once transportation is complete to the PACU the snap will be removed. The patient tolerated the procedure well, he was extubated in the operating and transferred in a stable condition to the recovery area. Total Power 169 kW Lasing time 22:00 Pathology: Prostate tissue, bladder stone Drains: Vargas catheter
[2023-08-06 14:31] VITALS: BP 176/82; PULSE 58; RESP 18; O2SAT 96
[2023-08-06] MEDS: oxyCODONE HCl Immed Release 5 MG TABLET PO (14:35)
[2023-08-06 14:36] VITALS: BP 167/78; PULSE 56; RESP 16; O2SAT 97
[2023-08-06 14:41] VITALS: BP 180/74; PULSE 53; RESP 20; TEMP 36.2; O2SAT 98
[2023-08-06 14:56] VITALS: BP 184/76; PULSE 54; RESP 20; TEMP 36.3; O2SAT 97
== END 2023-08-06 15:41 | disposition home or self-care (01) ==
PROVIDERS: PCP Internal Medicine; Visit Provider Urology
PROC: (CPT 52648; principal; 2023-08-06 11:50)
DX: N40.0 Benign prostatic hyperplasia without lower urinary tract symptoms (principal); N21.0 Calculus in bladder; N28.1 Cyst of kidney, acquired; I10 Essential (primary) hypertension; E78.00 Pure hypercholesterolemia, unspecified; D64.9 Anemia, unspecified; G47.33 Obstructive sleep apnea (adult) (pediatric); Z99.89 Dependence on other enabling machines and devices; Z86.73 Personal history of transient ischemic attack (TIA), and cerebral infarction without residual deficits; Z87.891 Personal history of nicotine dependence; Z79.82 Long term (current) use of aspirin; Z79.02 Long term (current) use of antithrombotics/antiplatelets; Z79.899 Other long term (current) drug therapy
CPT/HCPCS: 52649; 52317; 88300; 88305; J1956; J2405; J2704; J3010

== ENCOUNTER → 2023-08-06 09:34 | Outpatient (BNV) | payer MEDICARE, SELFPAY | PROVIDERS: PCP Internal Medicine; Visit Provider Urology | DX: N21.0 Calculus in bladder (principal); N40.0 Benign prostatic hyperplasia without lower urinary tract symptoms | CPT/HCPCS: 52317; 52649 ==

== ENCOUNTER → 2023-08-09 09:34 | Outpatient (BNVA) | payer MEDICARE, SELFPAY | PROVIDERS: PCP Internal Medicine; Visit Provider Urology ==

== ENCOUNTER 2023-09-21 09:45 | Outpatient (AMB) | payer MEDICARE, SELFPAY ==
--- NOTE | 2023-09-21 10:27 | A.OFFVIS_ITS ---
Intake Intake Visit Reasons: green light post op Intake Note: Patient is Present for Follow Up Post Op Urology Medication: Finasteride, Antibiotic Allergies: None Blood Thinners: Aspirin PVR: 35 Patient states that the surgery was a success. Patient states that he notices that his flow is alot stronger. He has been experiencing alot of frequency of urination. Patient has decreased his intake of beer and has been on Decaf coffee to help with Frequency. Patient states that he has been on and off with some blood clots in urine but denies any pain or discomfort Allergies No Known Allergies [No Known Allergies*] Allergy (Verified 09/21/23 10:28) HPI HPI Comments History of Present Illness Details Chung is a pleasant male. He is a patient of Dr. Barron. Seen for the following urologic conditions - nephrolithiasis - lower urinary tract symptoms - bladder stone Here for follow-up after bladder stone removal and prostate procedure Very happy with his current urination Minimal urgency and frequency Three-month follow-up PSA and PVR Lower urinary tract symptoms Progressive urgency and frequency Found to have bladder stone 1.5 cm cystoscopy Intervention - 08/18 GreenLight laser prostatectomy a nd stone removal [facility] Medical History (Updated 08/10/23 @ 18:51 by Benjamin Barron MD) Nephrolithiasis Anemia Cervical spinal stenosis Hypertension Degenerative disc disease, cervical Obstructive sleep apnea syndrome, moderate Vitamin D deficiency BPH (benign prostatic hyperplasia) Bilateral renal stones History of TIA (transient ischemic attack) Impaired glucose tolerance Hypercholesterolemia 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 Rash, skin Right shoulder pain Folliculitis Surgical History Hx of cystoscopy H/O colonoscopy H/O lithotripsy History of tonsillectomy Social History Housing: House Alcohol intake: current Patient Tobacco Use Status: Former Tobacco user Quit Date: 40 yrs ago Tobacco use type: Cigarette Years Smoked: 1989 quit e-Cigarette/Vaping Use: Never Used Second Hand Smoke Exposure: No service: No Current occupational status: retired Current occupation: Right Handed Cognitive needs: No Hearing needs: No Vision needs: Yes Review of Systems Const Denies chills and Denies fever(s) Card Reports no additional complaints and Denies syncope Resp Denies cough GI Denies abdominal pain and Denies heartburn Reports as per HPI and Denies change in libido Neuro Denies syncope Psych Denies change in libido Endo Denies change in libido Physical Exam Const General: cooperative, healthy appearing, comfortable and no acute distress Orientation/consciousness: patient oriented x3 HEENT Face and sinus: Yes normal facial exam Mouth: moist mucous membranes Neck Neck: Yes normal visual inspection, Yes full ROM and Yes trachea midline Chest Chest palpation & inspection: normal inspection of the chest Resp Effort & Inspection: normal respiratory effort, able to speak in complete sentences and no respiratory distress GI Inspection: Yes normal to inspection Back/Spine/Pelvis Cervical Spine: normal cervical lordosis Thoracic/Lumbar Spine: thoracic and lumbar spine normal to inspection Skin General skin exam: no rashes or lesions noted Neuro General: patient oriented x3, gait normal, tone normal and moves all extremities Extrem General: Yes normal to inspection and Yes capillary refill normal Office Procedures Post Void Residual Post Residual Void Post Void Residual (PVR): 35 [id number] Void Residual by ultrasound Assessment & Plan Assessment & Plan (1) Bladder stone: Comment: February 2023Normal appearance of the kidneys. 2. Large post void residual. 3. 1.0 cm bladder calculus. 4. Enlarged prostate. Code(s): N21.0 - Calculus in bladder (2) Enlarged prostate: Comment: February 2023 Normal appearance of the kidneys. 2. Large post void residual. 3. 1.0 cm bladder calculus. 4. Enlarged prostate. Code(s): N40.0 - Benign prostatic hyperplasia without lower urinary tract symptoms Plan Three-month follow-up PSA and PVR Orders: Orders AMB Post Void Residual by ultrasound 09/21/23 N40.1 - Benign prostatic hyperplasia with lower urinary tract symptoms, R35.0 - Frequency of micturition Prostate Specific Antigen 3 Months N40.1 - Benign prostatic hyperplasia with lower urinary tract symptoms, R35.0 - Frequency of micturition Patient Instructions: Imaging studies, laboratory and physical exam results were discussed and reviewed in detail. No major barriers to patient understanding were identified. An opportunity to ask questions regarding the treatment plan was provided. All questions were answered. The patient expressed understanding and agreement with the above treatment plan. The patient is aware they should contact our office by phone for worsening of their current condition or the appearance of new urologic symptoms. Compliance is encouraged with any medications and followup testing that is ordered. It is a privilege to participate in the urologic care of your patient. If you have any questions or concerns regarding treatment for the above conditions, or other urologic issues, please do not hesitate to contact me. The office telephone contact is [phone]. This note is constructed using voice recognition software. While every effort has been made to ensure accuracy transplant coordinator errors may have been included. Yours sincerely, Dr Pipo Goodrich MD, [facility] - Urology Providers of Expert, Compassionate Care for the Genitourinary System Coding Level of Care Code Est Pt Level 3 (66183) Diagnoses Bladder stone N21.0 Enlarged prostate N40.0 CPT Codes Post Residual Void - PVR CPT Code: 91818-Uxvu Void Residual by ultrasound ([id number])
== END 2023-09-21 11:17 | disposition home or self-care (01) ==
PROVIDERS: PCP Internal Medicine; Visit Provider Urology
DX: N21.0 Calculus in bladder (principal); N40.0 Benign prostatic hyperplasia without lower urinary tract symptoms
CPT/HCPCS: 99024

== ENCOUNTER → 2023-09-21 09:45 | Outpatient (BNVA) | payer MEDICARE, SELFPAY | PROVIDERS: PCP Internal Medicine; Visit Provider Urology | DX: Z48.816 Encounter for surgical aftercare following surgery on the genitourinary system (principal); N40.1 Benign prostatic hyperplasia with lower urinary tract symptoms; R35.0 Frequency of micturition; N21.0 Calculus in bladder | CPT/HCPCS: 51798; 99212 ==

== ENCOUNTER 2023-12-13 09:22 | Outpatient (REF) | payer MEDICARE, SELFPAY ==
[2023-12-13 11:32] LABS: Prostate Specific Antigen < 0.10 ng/mL (<0.05-4.0)
== END 2023-12-13 09:23 | disposition home or self-care (01) ==
LOC: HO.HMGCLDS 09:22
PROVIDERS: PCP Internal Medicine; Visit Provider Urology
DX: Z12.5 Encounter for screening for malignant neoplasm of prostate (principal); N40.1 Benign prostatic hyperplasia with lower urinary tract symptoms; R35.0 Frequency of micturition
CPT/HCPCS: 36415; 84153

== ENCOUNTER 2023-12-20 11:01 | Outpatient (AMB) | payer MEDICARE, SELFPAY ==
--- NOTE | 2023-12-20 11:05 | MHC.OFFVIS ---
Intake Visit Reasons: 3m/PSA/PVR(set)Confirmed Intake Note: Patient is Present for PVR/ Urology Med: Finasteride Antibiotic Allergy:None Blood Thinner:Aspirin Last PVR: 35 Todays PVR: 0 Allergies No Known Allergies [No Known Allergies*] Allergy (Verified 12/20/23 11:07) HPI Comments Details: Chung is a pleasant male. He is a patient of Dr. Barron. Seen for the following urologic conditions - nephrolithiasis - lower urinary tract symptoms - bladder stone Effective bladder emptying May come off medications May stop finasteride PSA 12/18 <0.1 Six-month follow-up PSA and PVR Lower urinary tract symptoms Progressive urgency and frequency Found to have bladder stone 1.5 cm cystoscopy Intervention - 08/18 GreenLight laser prostatectomy and stone removal PFSH Medical History Nephrolithiasis Anemia Cervical spinal stenosis Hypertension Degenerative disc disease, cervical Obstructive sleep apnea syndrome, moderate Vitamin D deficiency BPH (benign prostatic hyperplasia) Bilateral renal stones History of TIA (transient ischemic attack) Impaired glucose tolerance Hypercholesterolemia 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 Rash, skin Right shoulder pain Folliculitis Surgical History Hx of cystoscopy H/O colonoscopy H/O lithotripsy History of tonsillectomy Social History Housing: House Alcohol intake: current Patient Tobacco Use Status: Former Tobacco user Quit Date: 40 yrs ago Tobacco use type: Cigarette Years Smoked: 1989 quit e-Cigarette/Vaping Use: Never Used Second Hand Smoke Exposure: No service: No Current occupational status: retired Current occupation: Right Handed Cognitive needs: No Hearing needs: No Vision needs: Yes Review of Systems Const Denies chills and Denies fever(s) Card Reports no additional complaints and Denies syncope Resp Denies cough GI Denies abdominal pain and Denies heartburn Reports as per HPI and Denies change in libido Neuro Denies syncope Psych Denies change in libido Endo Denies change in libido Physical Exam Const General: cooperative, healthy appearing, comfortable and no acute distress Orientation/consciousness: patient oriented x3 HEENT Face and sinus: Yes normal facial exam Mouth: moist mucous membranes Neck Neck: Yes normal visual inspection, Yes full ROM and Yes trachea midline Chest Chest palpation & inspection: normal inspection of the chest Resp Effort & Inspection: normal respiratory effort, able to speak in complete sentences and no respiratory distress GI Inspection: Yes normal to inspection Back/Spine/Pelvis Cervical Spine: normal cervical lordosis Thoracic/Lumbar Spine: thoracic and lumbar spine normal to inspection Skin General skin exam: no rashes or lesions noted Neuro General: patient oriented x3, gait normal, tone normal and moves all extremities Extrem General: Yes normal to inspection and Yes capillary refill normal Office Procedures Post Void Residual Post Residual Void Post Void Residual (PVR): 0 [id number] Void Residual by ultrasound Assessment & Plan Assessment & Plan (1) Bladder stone: Comment: February 2023Normal appearance of the kidneys. 2. Large post void residual. 3. 1.0 cm bladder calculus. 4. Enlarged prostate. Code(s): N21.0 - Calculus in bladder Category: Medical (2) BPH (benign prostatic hyperplasia): Comment: Bladder stone and prostate biopsy July 2023 Code(s): N40.0 - Benign prostatic hyperplasia without lower urinary tract symptoms Category: Medical Qualifiers: Lower urinary tract symptom presence: symptoms present Lower urinary tract symptom detail: urinary frequency Qualified Code(s): N40.1 - Benign prostatic hyperplasia with lower urinary tract symptoms; R35.0 - Frequency of micturition Plan Six month follow-up PSA Orders: Orders Prostate Specific Antigen 6 Months N40.1 - Benign prostatic hyperplasia with lower urinary tract symptoms, R35.0 - Frequency of micturition AMB Post Void Residual by ultrasound Today N40.1 - Benign prostatic hyperplasia with lower urinary tract symptoms, R35.0 - Frequency of micturition Patient Instructions: Imaging studies, laboratory and physical exam results were discussed and reviewed in detail. No major barriers to patient understanding were identified. An opportunity to ask questions regarding the treatment plan was provided. All questions were answered. The patient expressed understanding and agreement with the above treatment plan. The patient is aware they should contact our office by phone for worsening of their current condition or the appearance of new urologic symptoms. Compliance is encouraged with any medications and followup testing that is ordered. It is a privilege to participate in the urologic care of your patient. If you have any questions or concerns regarding treatment for the above conditions, or other urologic issues, please do not hesitate to contact me. The office telephone contact is [phone]. This note is constructed using voice recognition software. While every effort has been made to ensure accuracy transportation equipment painter errors may have been included. Yours sincerely, Dr Pipo Goodrich MD, [facility] - Urology Providers of Expert, Compassionate Care for the Genitourinary System Coding Level of Care Code Est Pt Level 3 (83635) Diagnoses Bladder stone N21.0 Benign prostatic hyperplasia with urinary frequency N40.1; R35.0 Lower urinary tract symptom presence: symptoms present Lower urinary tract symptom detail: urinary frequency CPT Codes Post Residual Void - PVR CPT Code: 23010-Pfiu Void Residual by ultrasound ([id number])
== END 2023-12-20 12:08 | disposition home or self-care (01) ==
PROVIDERS: PCP Internal Medicine; Visit Provider Urology
DX: N21.0 Calculus in bladder (principal); N40.1 Benign prostatic hyperplasia with lower urinary tract symptoms; R35.0 Frequency of micturition
CPT/HCPCS: 99213

== ENCOUNTER → 2023-12-20 11:01 | Outpatient (BNVA) | payer MEDICARE, SELFPAY | PROVIDERS: PCP Internal Medicine; Visit Provider Urology | DX: N21.0 Calculus in bladder (principal); N40.1 Benign prostatic hyperplasia with lower urinary tract symptoms; R35.0 Frequency of micturition | CPT/HCPCS: 51798; 99212 ==

== ENCOUNTER 2024-03-10 07:45 | Outpatient (REF) | payer MEDICARE, SELFPAY ==
[2024-03-10 10:06] LABS: MANUAL DIFF FLAG NO
[2024-03-10 10:14] LABS: Estimated Average Glucose 123 mg/dL; Hemoglobin A1C 152.2828 umol/L; Hemoglobin A1c % 5.9 % (<6.0)
[2024-03-10 10:17] LABS: Basophils Percent Auto 0.5 % (0-2); Eosinophils Absolute Auto 0.2 X10*3/uL (0.0-0.4); Eosinophils Percent Auto 3.5 % (0-4); Hematocrit 39.2 % (42.0-52.0); Hemoglobin 13.5 g/dl (14.0-18.0); Imm Gran Abs Auto 0.01 X10*3/uL (0.00-0.03); Imm Gran Pct Auto 0.2 % (0.0-0.4); Lymphocytes Absolute Auto 2.4 X10*3/uL (1.2-4.9); Lymphocytes Percent Auto 41.1 % (20-40); Mean Corpuscular HGB Conc 34.4 g/dl (31.0-36.0); Mean Corpuscular Hemoglobin 30.9 pg (27.0-33.0); Mean Corpuscular Volume 89.7 fL (80.0-98.0); Mean Platelet Volume 10.6 fL (9.4-12.4); Monocytes Absolute Auto 0.4 X10*3/uL (0.1-1.2); Monocytes Percent Auto 7.4 % (2-11); Neutrophils Absolute Auto 2.8 x10*3/uL (2.0-8.3); Neutrophils Percent Auto 47.3 % (45-73); Platelet Count 188 X10*3/uL (160-400); Red Blood Count 4.37 X10*6/uL (4.60-5.80); Red Cell Distribution Width 12.7 % (11.0-16.0); White Blood Count 5.9 X10*3/uL (4.8-10.8)
[2024-03-10 10:50] LABS: Alanine Aminotransferase 19 U/L (0-40); Albumin Level 4.2 g/dL (3.5-5.0); Alkaline Phosphatase 51 U/L (39-117); Anion Gap 12 (12-20); Aspartate Amino Transferase 17 U/L (5-37); Bilirubin Total 0.5 mg/dL (0.0-1.0); Blood Urea Nitrogen 16 mg/dL (9-16); Calcium 9.1 mg/dL (8.4-10.2); Carbon Dioxide 28 mmol/L (22-29); Chloride 107 mmol/L (96-108); Cholesterol 133 mg/dL (<200); Estimated Glomerular Filt Rate > 60; Glucose Random 128 mg/dL (60-115); HDL Cholesterol 46 mg/dL (>40); LDL Cholesterol Calculated 68 mg/dL (<100); Sodium 143 mmol/L (135-145); Total Protein 6.5 g/dL (6.5-8.0); Triglycerides 99 mg/dL (<150)
[2024-03-10 10:53] LABS: Free T4 (Free Thyroxine) 0.87 ng/dL (0.71-1.85); Thyroid Stimulating Hormone 2.84 uIU/mL (0.32-4.0)
[2024-03-10 12:15] LABS: Folate 9.1 ng/mL (> or = 4.0); Prostate Specific Antigen Scr 0.14 ng/mL (<0.05-4.0); Vitamin B12 342 pg/mL (200-900)
== END 2024-03-10 07:46 | disposition home or self-care (01) ==
LOC: HO.HMGCLDS 07:45
PROVIDERS: PCP Internal Medicine; Visit Provider Internal Medicine
DX: I10 Essential (primary) hypertension (principal); N40.1 Benign prostatic hyperplasia with lower urinary tract symptoms; R35.0 Frequency of micturition; E78.00 Pure hypercholesterolemia, unspecified; R73.02 Impaired glucose tolerance (oral); Z12.5 Encounter for screening for malignant neoplasm of prostate
CPT/HCPCS: 36415; 80053; 80061; 82607; 82746; 83036; 84153; 84439; 84443; 85025

== ENCOUNTER 2024-03-18 12:14 | Outpatient (AMB) | payer MEDICARE, SELFPAY ==
[2024-03-18 12:39] VITALS: BP 144/72; PULSE 77; O2SAT 98; BMI 26.6
--- NOTE | 2024-03-18 12:39 | MHC.PC.OV ---
Vital Signs 03/18/24 12:39 Height 5 ft 11 in Weight 191 lb BMI 26.6 BP 144/72 H Blood Pressure Location Lt brachial Position Sitting Pulse 77 Pulse Source Pulse Oximeter Pulse Oximetry (%) 98 Oxygen Delivery Method Room Air Intake Visit Reasons: pe Allergies No Known Allergies [No Known Allergies*] Allergy (Verified 03/18/24 12:39) Medication List - Last Reconciled 03/18/24 by Benjamin Barron MD aspirin (Adult Aspirin Regimen) 81 mg PO DAILY cholecalciferol (vitamin D3) 25 mcg PO DAILY CPAP As directed rosuvastatin 5 mg PO DAILY Tobacco use date assessed: 03/18/24 Fall risk assessment: No Falls in past year Last assessed Fall Risk: 03/18/24 Dental Screening Dental Screen Date: 03/18/24 Did you have a dental visit in the last 12 months?: Yes Did you have a dental problem in the last 6 months where you did not have access to dental care?: No Was dental information given to patient?: Patient has dentist HPI pe HPI Details 79-year-old male with hypertension, hypercholesterolemia impaired glucose tolerance BPH last seen for preop in 07/16/2023 for stone removal and GreenLight laser enucleation of the prostate done in 08/15/2023 patient is here for follow-up. 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 Rash, skin Right shoulder pain Folliculitis Surgical History Hx of cystoscopy H/O colonoscopy H/O lithotripsy History of tonsillectomy Social History (Updated 03/18/24 @ 12:56 by Benjamin Barron MD) Housing: House Alcohol intake: current Comment: 4 x a week 1-2 drinks Patient Tobacco Use Status: Former Tobacco user Tobacco use type: Cigarette Years Smoked: 1989 quit e-Cigarette/Vaping Use: Never Used Second Hand Smoke Exposure: No service: No Current occupational status: retired Current occupation: Right Handed Cognitive needs: No Hearing needs: No Vision needs: Yes Questionnaire PHQ-9 Over the last 2 weeks, how often have you been bothered by any of the following problems? 1. Little interest or pleasure in doing things: not at all 2. Feeling down, depressed, or hopeless: not at all 3. Trouble falling or staying asleep, or sleeping too much: not at all 4. Feeling tired or having little energy: not at all 5. Poor appetite or overeating: not at all 6. Feeling bad about yourself - or that you are a failure or have let yourself or your family down: not at all 7. Trouble concentrating on things, such as reading the newspaper or watching television: not at all 8. Moving or speaking so slowly that other people could have noticed. Or the opposite - being so fidgety or restless that you have been moving around a lot more than usual: not at all 9. Thoughts that you would be better off or of hurting yourself in some way: not at all Total score: 0 Depression Screening Interpretation: Negative Depression Screening Done: Yes Source: Developed by Drs. Nacho Carvalho, Alta Rivera, Greg Torres and colleagues, with an educational ger from [employer]. Thrive Questionnaire Date Thrive assessed: 03/18/24 I am a: Patient What is your living situation today?: I have a steady place to live Within the past 12 months, did the food you bought not last and you didn't have the money to get more?: Never true Within the past 12 months, did you worry whether your food would run out before you got money to buy more?: Never true Do you have trouble paying for medicines?: No Do you have trouble getting transportation to medical appointments?: No Do you have trouble paying your heating and electricity bill?: No Do you have trouble taking care of your child, family member or friend?: No Do you have trouble with day-to-day activities such as bathing, preparing meals, shopping, managing finances, etc.?: No Are you currently unemployed and looking for a job?: No Are you interested in more education?: No Currently or been in a relationship where the following occur: No concerns reported THRIVE Score: 0 AUDIT C Alcohol Use Questionnaire (AUDIT-C) 1. How often do you have a drink containing alcohol?: 2-3 times a week 2. How many drinks containing alcohol do you have on a typical day when you are drinking?: 1 or 2 3. How often do you have six or more drinks on one occasion?: Never Total Score: 3 AMI-7 AMB Questionnaire AMI-7 Date AMI - 7 assessed: 03/18/24 Feeling nervous, anxious, or on edge: 0 = Not at all Not being able to stop or control worryin = Not at all Worrying too much about different things: 0 = Not at all Trouble relaxin = Not at all Being so restless that it is hard to sit still: 0 = Not at all Becoming easily annoyed or irritable: 0 = Not at all Feeling afraid as if something awful might happen: 0 = Not at all Total AMI-7 score (0-4 normal; 5-9 mild; 10-14 moderate; 15-21 severe): 0 Source: Developed by Drs. Nacho Carvalho, Alta Rivera, Greg Torres and colleagues, with an educational ger from [employer]. Review of Systems Const Denies poor appetite and Denies weakness Eyes Denies no additional complaints ENT Reports Normal hearing present, Denies dizziness, Denies nasal congestion, Denies tinnitus and Denies sore throat Card Denies chest pain, Denies syncope, Denies rapid heart rate and Denies dyspnea Resp Denies cough and Denies dyspnea GI Denies change in stool character, Reports constipation, Denies diarrhea, Denies nausea and Denies vomiting Denies dysuria and Denies urinary frequency Neuro Reports Normal hearing present, Denies confusion, Denies dizziness, Denies syncope and Denies weakness Psych Denies confusion Physical exam (Primary Care) Vital Signs: Last Vital Signs Pulse 77 03/18/24 12:39 BP 144/72 H 03/18/24 12:39 Pulse Ox 98 03/18/24 12:39 Oxygen Delivery Method Room Air 03/18/24 12:39 BMI result Body Mass Index 26.6 Tobacco/Smoking Status: Tobacco use Status Tobacco use date assessed 03/18/24 03/18/24 12:43 Patient Tobacco Use Status Former Tobacco user 03/18/24 12:43 Tobacco use type Cigarette 03/18/24 12:43 e-Cigarette/Vaping Use Never Used 03/18/24 12:43 PHQ-9: PHQ-9 Score PHQ-9: Total score 0 03/18/24 12:43 Depression Screening Interpretation: Negative Thrive Assessment: Date of Thrive Assessment Date Thrive assessed 03/18/24 03/18/24 12:43 Currently or been in a relationship where the following occur: No concerns reported Const General: No confusion Orientation/consciousness: No confusion HENMT Head: Yes normocephalic Ears: external ears normal and TM's normal bilaterally Face and sinus: Yes normal facial exam Mouth: moist mucous membranes Throat: Yes tonsils normal Eyes Conjunctivae: conjunctivae normal Pupils: Equal, round and reactive pupils present and Pupil accommodation reflex normal Direct Ophthalmoscopy: normal light reflex Neck Neck: No lymphadenopathy Thyroid: Thyroid normal Chest Chest palpation & inspection: normal inspection of the chest Resp Effort & Inspection: normal respiratory effort and no audible wheezes Auscultation: clear to auscultation bilaterally, no crackles, no wheezes and lung sounds not diminished Cardio Rate: regular rate Rhythm: regular rhythm Peripheral pulses: radial pulses present and dorsalis pedis present GI Palpation (GI): no masses Auscultation: normal bowel sounds and normoactive bowel sounds Rectal Exam - Male: Yes deferred Skin General skin exam: no rashes or lesions noted Rashes: no rashes Neuro General: No confusion Cranial nerves: Yes Equal, round and reactive pupils present and Yes Normal hearing present Cognition (Neuro): normal cognition Gait exam (Neuro): Normal gait present Motor exam (neuro): 5/5 motor strength present throughout Deep tendon reflexes (DTR's): Right brachioradialis reflex intensity grade: 2+, Left brachioradialis reflex intensity grade: 2+, Right patellar reflex intensity grade: 2+ and Left patellar reflex intensity grade: 2+ Extrem General: No edema Assessment and Plan Assessment & Plan (1) Annual physical exam: Code(s): Z00.00 - Encounter for general adult medical examination without abnormal findings Plan: Patient is advised to eat healthy, keep well hydrated, keep active and have adequate sleep. (2) Bladder stone: Comment: February 2023Normal appearance of the kidneys. 2. Large post void residual. 3. 1.0 cm bladder calculus. 4. Enlarged prostate. Stone removal 08/15/2023 Code(s): N21.0 - Calculus in bladder Plan: Patient had stone removal 08/15/2023 (3) Enlarged prostate: Comment: February 2023 Normal appearance of the kidneys. 2. Large post void residual. 3. 1.0 cm bladder calculus. 4. Enlarged prostate. GreenLight laser enucleation 08/15/2023 Code(s): N40.0 - Benign prostatic hyperplasia without lower urinary tract symptoms Plan: Patient had laser enucleation 08/15/2023 (4) Anemia of chronic disease: Code(s): D63.8 - Anemia in other chronic diseases classified elsewhere Plan: Continue to monitor (5) Hypertension: Comment: no meds Code(s): I10 - Essential (primary) hypertension Qualifiers: Hypertension type: primary hypertension Qualified Code(s): I10 - Essential (primary) hypertension Plan: Continue with blood pressure medication. Decrease salt intake and exercise presently on no medication (6) Obstructive sleep apnea syndrome, moderate: Comment: AHI 17/hr, O2 james 80% Code(s): G47.33 - Obstructive sleep apnea (adult) (pediatric) Plan: Continue to use the CPAP more than 4 hours a night and benefits from this (7) Impaired glucose tolerance: Code(s): R73.02 - Impaired glucose tolerance (oral) Plan: Decrease the amount of carbohydrate intake, pasta, bread, rice and potatoes are all sugar and that is aside from all the sweet stuff, remember that fruits are good but they are Sweet also. (8) Hypercholesterolemia: Code(s): E78.00 - Pure hypercholesterolemia, unspecified Plan: Avoid fried foods, chicken skin, eggs, butter margarine, pastries and meat. Be it pork or beef they have a lot of cholesterol LDL goal of less than 130 and triglyceride of less than 150 on rosuvastatin 5 mg once a day Orders: Orders Complete Blood Count Auto Diff 1 Year N40.1 - Benign prostatic hyperplasia with lower urinary tract symptoms, R35.0 - Frequency of micturition Free T4 (Free Thyroxine) 1 Year N40.1 - Benign prostatic hyperplasia with lower urinary tract symptoms, R35.0 - Frequency of micturition Lipid Panel 1 Year E78.00 - Pure hypercholesterolemia, unspecified, N40.1 - Benign prostatic hyperplasia with lower urinary tract symptoms, R35.0 - Frequency of micturition Reticulocyte Count 1 Year N40.1 - Benign prostatic hyperplasia with lower urinary tract symptoms, R35.0 - Frequency of micturition Hemoglobin A1c 1 Year N40.1 - Benign prostatic hyperplasia with lower urinary tract symptoms, R35.0 - Frequency of micturition UA w Microscopic 1 Year N40.1 - Benign prostatic hyperplasia with lower urinary tract symptoms, R35.0 - Frequency of micturition XR chest 2V Today G47.33 - Obstructive sleep apnea (adult) (pediatric) Comprehensive Met. Panel 1 Year N40.1 - Benign prostatic hyperplasia with lower urinary tract symptoms, R35.0 - Frequency of micturition Thyroid Stimulating Hormone 1 Year N40.1 - Benign prostatic hyperplasia with lower urinary tract symptoms, R35.0 - Frequency of micturition Vitamin B12 and Folate 1 Year N40.1 - Benign prostatic hyperplasia with lower urinary tract symptoms, R35.0 - Frequency of micturition Ferritin 1 Year N40.1 - Benign prostatic hyperplasia with lower urinary tract symptoms, R35.0 - Frequency of micturition IRON PROFILE 1 Year N40.1 - Benign prostatic hyperplasia with lower urinary tract symptoms, R35.0 - Frequency of micturition Prostate Specific Antigen Scr 1 Year N40.1 - Benign prostatic hyperplasia with lower urinary tract symptoms, R35.0 - Frequency of micturition Referrals Sleep Medicine Referral G47.33 - Obstructive sleep apnea (adult) (pediatric) Medications: New hydrochlorothiazide 12.5 mg PO DAILY 30 tabs 3RF I10 - Essential (primary) hypertension Coding Level of Care Code Est Pt Prev Care >65y(19923) Diagnoses Annual physical exam Z00.00 Bladder stone N21.0 Enlarged prostate N40.0 Anemia of chronic disease D63.8 Primary hypertension I10 Hypertension type: primary hypertension Obstructive sleep apnea syndrome, moderate G47.33 Impaired glucose tolerance R73.02 Hypercholesterolemia E78.00
== END 2024-03-18 13:24 | disposition home or self-care (01) ==
PROVIDERS: PCP Internal Medicine; Visit Provider Internal Medicine
DX: Z00.00 Encounter for general adult medical examination without abnormal findings (principal); N21.0 Calculus in bladder; N40.0 Benign prostatic hyperplasia without lower urinary tract symptoms; D63.8 Anemia in other chronic diseases classified elsewhere; I10 Essential (primary) hypertension; G47.33 Obstructive sleep apnea (adult) (pediatric); R73.02 Impaired glucose tolerance (oral); E78.00 Pure hypercholesterolemia, unspecified
CPT/HCPCS: 99397

== ENCOUNTER 2024-06-05 10:22 | Outpatient (REF) | payer MEDICARE, SELFPAY ==
--- NOTE | ~2024-06-05 | XR_ITS ---
EXAMINATION: XR CHEST 2 VIEWS CLINICAL INFORMATION: Obstructive sleep apnea (adult) (pediatric) G47.33. COMPARISON: XR Chest 01/14/2024 TECHNIQUE: Two views of the chest were obtained. FINDINGS: Cardiac silhouette is normal in size. The lungs are well aerated. There is no lobar consolidation. No pleural effusion or pneumothorax. Mild degenerative changes of the spine. XR/XR chest 2V IMPRESSION: No acute pulmonary pathology. Electronically signed by: Sammy Hutson MD 08/12/2024 11:46 AM EST
[2024-06-05 13:39] LABS: Prostate Specific Antigen 0.14 ng/mL (<0.05-4.0)
== END 2024-06-05 10:23 | disposition home or self-care (01) ==
LOC: HO.HMGCX 10:22
PROVIDERS: PCP Internal Medicine; Referring Provider Urology; Visit Provider Internal Medicine
DX: N40.1 Benign prostatic hyperplasia with lower urinary tract symptoms (principal); R35.0 Frequency of micturition; G47.33 Obstructive sleep apnea (adult) (pediatric); Z12.5 Encounter for screening for malignant neoplasm of prostate
CPT/HCPCS: 36415; 71046; 84153

== ENCOUNTER 2024-06-20 11:15 | Outpatient (AMB) | payer MEDICARE, SELFPAY ==
--- NOTE | 2024-06-20 11:21 | A.OFFVIS_ITS ---
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 He is a patient of Dr. Barron. Seen for the following urologic conditions - nephrolithiasis - lower urinary tract symptoms - bladder stone PVR 20 cc Doing well following procedure Off medications One year follow-up Lower urinary tract symptoms Progressive urgency and frequency Found to have bladder stone 1.5 cm cystoscopy Intervention - 08/18 GreenLight laser prostatectomy and stone removal PSA - 12/18 <0.1 PFSH Medical History Nephrolithiasis Anemia Cervical spinal stenosis Hypertension Degenerative disc disease, cervical Obstructive sleep apnea syndrome, moderate Vitamin D deficiency BPH (benign prostatic hyperplasia) Bilateral renal stones History of TIA (transient ischemic attack) Impaired glucose tolerance Hypercholesterolemia 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 Rash, skin Right shoulder pain Folliculitis Surgical History Hx of cystoscopy H/O colonoscopy H/O lithotripsy History of tonsillectomy Social History Housing: House Alcohol intake: current Comment: 4 x a week 1-2 drinks Patient Tobacco Use Status: Former Tobacco user Tobacco use type: Cigarette Years Smoked: 1989 quit e-Cigarette/Vaping Use: Never Used Second Hand Smoke Exposure: No service: No Current occupational status: retired Current occupation: Right Handed Cognitive needs: No Hearing needs: No Vision needs: Yes Review of Systems Const Denies chills and Denies fever(s) Card Reports no additional complaints and Denies syncope Resp Denies cough GI Denies abdominal pain and Denies heartburn Reports as per HPI and Denies change in libido Neuro Denies syncope Psych Denies change in libido Endo Denies change in libido Physical Exam Const General: cooperative, healthy appearing, comfortable and no acute distress Orientation/consciousness: patient oriented x3 HEENT Face and sinus: Yes normal facial exam Mouth: moist mucous membranes Neck Neck: Yes normal visual inspection, Yes full ROM and Yes trachea midline Chest Chest palpation & inspection: normal inspection of the chest Resp Effort & Inspection: normal respiratory effort, able to speak in complete sentences and no respiratory distress GI Inspection: Yes normal to inspection Back/Spine/Pelvis Cervical Spine: normal cervical lordosis Thoracic/Lumbar Spine: thoracic and lumbar spine normal to inspection Skin General skin exam: no rashes or lesions noted Neuro General: patient oriented x3, gait normal, tone normal and moves all extremities Extrem General: Yes normal to inspection and Yes capillary refill normal Office Procedures Post Void Residual Post Residual Void Post Void Residual (PVR): 18 [id number] Void Residual by ultrasound Assessment & Plan Assessment & Plan (1) BPH (benign prostatic hyperplasia): Comment: Bladder stone and prostate biopsy July 2023 Code(s): N40.0 - Benign prostatic hyperplasia without lower urinary tract symptoms Category: Medical Qualifiers: Lower urinary tract symptom presence: symptoms present Lower urinary tract symptom detail: urinary frequency Qualified Code(s): N40.1 - Benign prostatic hyperplasia with lower urinary tract symptoms; R35.0 - Frequency of micturition Plan 1 year follow-up PVR Orders: Orders AMB Post Void Residual by ultrasound Today N40.0 - Benign prostatic hyperplasia without lower urinary tract symptoms Patient Instructions: Imaging studies, laboratory and physical exam results were discussed and reviewed in detail. No major barriers to patient understanding were identified. An opportunity to ask questions regarding the treatment plan was provided. All questions were answered. The patient expressed understanding and agreement with the above treatment plan. The patient is aware they should contact our office by phone for worsening of their current condition or the appearance of new urologic symptoms. Compliance is encouraged with any medications and followup testing that is ordered. It is a privilege to participate in the urologic care of your patient. If you have any questions or concerns regarding treatment for the above conditions, or other urologic issues, please do not hesitate to contact me. The office telephone contact is [phone]. This note is constructed using voice recognition software. While every effort has been made to ensure accuracy data analytics developer errors may have been included. Yours sincerely, Dr Pipo Goodrich MD, [facility] - Urology Providers of Expert, Compassionate Care for the Genitourinary System Coding Level of Care Code Est Pt Level 3 (96939) Diagnoses Benign prostatic hyperplasia with urinary frequency N40.1; R35.0 Lower urinary tract symptom presence: symptoms present Lower urinary tract symptom detail: urinary frequency CPT Codes Post Residual Void - PVR CPT Code: 72898-[id number] Void Residual by ultrasound ([id number])
== END 2024-06-20 11:49 | disposition home or self-care (01) ==
PROVIDERS: PCP Internal Medicine; Visit Provider Urology
DX: N40.1 Benign prostatic hyperplasia with lower urinary tract symptoms (principal); R35.0 Frequency of micturition
CPT/HCPCS: 99213

== ENCOUNTER → 2024-06-20 11:15 | Outpatient (BNVA) | payer MEDICARE, SELFPAY | PROVIDERS: PCP Internal Medicine; Visit Provider Urology | DX: N40.1 Benign prostatic hyperplasia with lower urinary tract symptoms (principal); R35.0 Frequency of micturition | CPT/HCPCS: 51798; 99212 ==

== ENCOUNTER 2024-08-21 12:36 | Outpatient (AMB) | payer MEDICARE, SELFPAY ==
--- NOTE | 2024-08-21 12:41 | A.OFFPC_ITS ---
Vital Signs 08/21/24 12:42 Height 5 ft 11 in Weight 193 lb BMI 26.9 BP 144/70 H Blood Pressure Location Lt brachial Position Sitting Pulse 63 Pulse Source Pulse Oximeter Pulse Oximetry (%) 96 Oxygen Delivery Method Room Air Intake Visit Reasons: HTN tiredness, JACQUELYN Intake Note: Patient here for a HTN, tiredness, JACQUELYN Manager Home Healthcare Required: No Accompanied by: Self / Same As Patient Allergies No Known Allergies [No Known Allergies*] Allergy (Verified 08/21/24 12:44) Tobacco use date assessed: 03/18/24 Fall risk assessment: No Falls in past year Last assessed Fall Risk: 08/21/24 Dental Screening Dental Screen Date: 08/21/24 Did you have a dental visit in the last 12 months?: Yes Did you have a dental problem in the last 6 months where you did not have access to dental care?: No Was dental information given to patient?: Patient has dentist HPI HTN tiredness, JACQUELYN HPI Details The patient is an 79-year-old male presenting with chronic medical conditions, including diabetes mellitus, essential tremor, and hypertension. Previously, the patient was informed of chronic anemia, which was stable with a hemoglobin level of 13.5 g/dL. The patient has a history of elevated fasting blood glucose levels, most recently documented at 128 mg/dL in February, exceeding the threshold for diabetes diagnosis. Although the hemoglobin A1c was slightly elevated at 5.9%, it is not at the diabetic range, suggesting controlled diabetes. The patient reports successful efforts to reduce dietary sugar intake, except for occasional lapses. The sleep apnea is being treated with CPAP therapy, with a pending pulmonary follow-up scheduled in October. Neurologically, the patient reports essential tremor, particularly affecting the right hand, with no family history except for a father with Parkinson's disease. There are occasional body aches, night sweats, and hot flashes, notably since discontinuation of finasteride. There were also reports of marginal vision due to retinal scarring, observed to interfere with fine activities and computer use. Additionally, there is a discussion of elevated blood pressure, commonly in the 130s to 140s, for which the patient is currently on hydrochlorothiazide. [facility] Medical History Nephrolithiasis Anemia Cervical spinal stenosis Hypertension Degenerative disc disease, cervical Obstructive sleep apnea syndrome, moderate Vitamin D deficiency BPH (benign prostatic hyperplasia) Bilateral renal stones History of TIA (transient ischemic attack) Impaired glucose tolerance Hypercholesterolemia 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 Rash, skin Right shoulder pain Folliculitis Surgical History Hx of cystoscopy H/O colonoscopy H/O lithotripsy History of tonsillectomy Social History Housing: House Alcohol intake: current Comment: 4 x a week 1-2 drinks Patient Tobacco Use Status: Former Tobacco user Tobacco use type: Cigarette Years Smoked: 1989 quit e-Cigarette/Vaping Use: Never Used Second Hand Smoke Exposure: No service: No Current occupational status: retired Current occupation: Right Handed Cognitive needs: No Hearing needs: No Vision needs: Yes Questionnaire PHQ-9 Over the last 2 weeks, how often have you been bothered by any of the following problems? 1. Little interest or pleasure in doing things: not at all 2. Feeling down, depressed, or hopeless: not at all 3. Trouble falling or staying asleep, or sleeping too much: not at all 4. Feeling tired or having little energy: not at all 5. Poor appetite or overeating: not at all 6. Feeling bad about yourself - or that you are a failure or have let yourself or your family down: not at all 7. Trouble concentrating on things, such as reading the newspaper or watching television: not at all 8. Moving or speaking so slowly that other people could have noticed. Or the opposite - being so fidgety or restless that you have been moving around a lot more than usual: not at all 9. Thoughts that you would be better off or of hurting yourself in some way: not at all Total score: 0 Depression Screening Interpretation: Negative Depression Screening Done: Yes Source: Developed by Drs. Nacho Carvalho, Alta Rivera, Greg Torres and colleagues, with an educational ger from [employer]. Thrive Questionnaire Date Thrive assessed: 08/21/24 I am a: Patient What is your living situation today?: I have a steady place to live Within the past 12 months, did the food you bought not last and you didn't have the money to get more?: Never true Within the past 12 months, did you worry whether your food would run out before you got money to buy more?: Never true Do you have trouble paying for medicines?: No Do you have trouble getting transportation to medical appointments?: No Do you have trouble paying your heating and electricity bill?: No Do you have trouble taking care of your child, family member or friend?: No Do you have trouble with day-to-day activities such as bathing, preparing meals, shopping, managing finances, etc.?: No Are you currently unemployed and looking for a job?: No Are you interested in more education?: No Please select the resources that you would like help with: None Currently or been in a relationship where the following occur: No concerns reported THRIVE Score: 0 AUDIT C Alcohol Use Questionnaire (AUDIT-C) 1. How often do you have a drink containing alcohol?: 2-3 times a week 2. How many drinks containing alcohol do you have on a typical day when you are drinking?: 1 or 2 3. How often do you have six or more drinks on one occasion?: Never Total Score: 3 AMI-7 AMB Questionnaire AMI-7 Date AMI - 7 assessed: 08/21/24 Feeling nervous, anxious, or on edge: 0 = Not at all Not being able to stop or control worryin = Not at all Worrying too much about different things: 0 = Not at all Trouble relaxin = Not at all Being so restless that it is hard to sit still: 0 = Not at all Becoming easily annoyed or irritable: 0 = Not at all Feeling afraid as if something awful might happen: 0 = Not at all Total AMI-7 score (0-4 normal; 5-9 mild; 10-14 moderate; 15-21 severe): 0 Source: Developed by Drs. Nacho Carvalho, Alta Rivera, Greg Torres and colleagues, with an educational ger from [employer]. Physical exam (Primary Care) Vital Signs: Last Vital Signs Pulse 63 08/21/24 12:42 BP 144/70 H 08/21/24 12:42 Pulse Ox 96 08/21/24 12:42 Oxygen Delivery Method Room Air 08/21/24 12:42 BMI result Body Mass Index 26.9 Tobacco/Smoking Status: Tobacco use Status Tobacco use date assessed 03/18/24 08/21/24 12:47 Patient Tobacco Use Status Former Tobacco user 08/21/24 12:47 Tobacco use type Cigarette 08/21/24 12:47 e-Cigarette/Vaping Use Never Used 08/21/24 12:47 PHQ-9: PHQ-9 Score PHQ-9: Total score 0 08/21/24 12:47 Depression Screening Interpretation: Negative Thrive Assessment: Date of Thrive Assessment Date Thrive assessed 08/21/24 08/21/24 12:47 Currently or been in a relationship where the following occur: No concerns reported Const General: alert; No acute distress Eyes Conjunctivae: conjunctivae normal Resp Auscultation: clear to auscultation bilaterally Cardio Rate: regular rate Rhythm: regular rhythm GI Inspection: Yes normal to inspection Extrem General: Yes normal to inspection and No edema Coding Level of Care Code Est Pt Level 4 (80941) Complex EM visit Add On G2211 Diagnoses Enlarged prostate N40.0 Anemia of chronic disease D63.8 Primary hypertension I10 Hypertension type: primary hypertension Obstructive sleep apnea syndrome, moderate G47.33 Impaired glucose tolerance R73.02 Hypercholesterolemia E78.00 Type 2 diabetes mellitus with hyperglycemia E11.65 Assessment & Plan Assessment & Plan (1) Enlarged prostate: Comment: February 2023 Normal appearance of the kidneys. 2. Large post void residual. 3. 1.0 cm bladder calculus. 4. Enlarged prostate. GreenLight laser enucleation 08/15/2023 Code(s): N40.0 - Benign prostatic hyperplasia without lower urinary tract symptoms Category: Medical Plan: follow up with urology (2) Anemia of chronic disease: Code(s): D63.8 - Anemia in other chronic diseases classified elsewhere Category: Medical Plan: stable (3) Hypertension: Comment: no meds Code(s): I10 - Essential (primary) hypertension Category: Medical Qualifiers: Hypertension type: primary hypertension Qualified Code(s): I10 - Essential (primary) hypertension Plan: HCTZ med (4) Obstructive sleep apnea syndrome, moderate: Comment: AHI 17/hr, O2 james 80% Code(s): G47.33 - Obstructive sleep apnea (adult) (pediatric) Category: Medical (5) Impaired glucose tolerance: Code(s): R73.02 - Impaired glucose tolerance (oral) Category: Medical (6) Hypercholesterolemia: Code(s): E78.00 - Pure hypercholesterolemia, unspecified Category: Medical (7) Type 2 diabetes mellitus with hyperglycemia: Code(s): E11.65 - Type 2 diabetes mellitus with hyperglycemia Category: Medical Plan - Diabetes Mellitus: Continue monitoring of blood glucose and hemoglobin A1c levels, with ongoing emphasis on dietary measures aiming to maintain sugar intake at a minimum. Repeat blood work to assess sugar control will be conducted. - Hypertension: Transition from hydrochlorothiazide monotherapy to combination therapy with lisinopril 5 mg daily to achieve optimal blood pressure control. - Chronic Anemia: Remain in observation as current levels are stable and minimal symptoms reported. - Essential Tremor: Monitor the severity of tremors. Provide education on potential pharmacological interventions, such as beta blockers, if symptoms progress. - Sleep Apnea: Follow up on CPAP therapy effectiveness with upcoming pulmonary consultation. - Hyperlipidemia: Continuation of current management measures as no acute concerns were highlighted. - Health Maintenance: Review and update preventive health measures, including vaccination status, which are reported as current according to history. Orders: Orders Complete Blood Count Auto Diff Today E11.65 - Type 2 diabetes mellitus with hyperglycemia Free T4 (Free Thyroxine) Today E11.65 - Type 2 diabetes mellitus with hyperglycemia Hemoglobin A1c Today E11.65 - Type 2 diabetes mellitus with hyperglycemia Vitamin B12 and Folate Today E11.65 - Type 2 diabetes mellitus with hyperglycemia Vitamin D 25-OH Total Today E11.65 - Type 2 diabetes mellitus with hyperglycemia Prostate Specific Antigen Scr Today E11.65 - Type 2 diabetes mellitus with hyperglycemia IRON PROFILE Today E11.65 - Type 2 diabetes mellitus with hyperglycemia Comprehensive Met. Panel Today E11.65 - Type 2 diabetes mellitus with hyperglycemia Thyroid Stimulating Hormone Today E11.65 - Type 2 diabetes mellitus with hyperglycemia Lipid Panel Today E11.65 - Type 2 diabetes mellitus with hyperglycemia, E78.00 - Pure hypercholesterolemia, unspecified Microalbumin, Random (w Creat) Today E11.65 - Type 2 diabetes mellitus with hyperglycemia Creatinine Urine Today E11.65 - Type 2 diabetes mellitus with hyperglycemia Testosterone, Total Today E11.65 - Type 2 diabetes mellitus with hyperglycemia Ferritin Today E11.65 - Type 2 diabetes mellitus with hyperglycemia
[2024-08-21 12:42] VITALS: BP 144/70; PULSE 63; O2SAT 96; BMI 26.9
== END 2024-08-21 13:20 | disposition home or self-care (01) ==
PROVIDERS: PCP Internal Medicine; Visit Provider Internal Medicine
DX: N40.0 Benign prostatic hyperplasia without lower urinary tract symptoms (principal); E11.65 Type 2 diabetes mellitus with hyperglycemia; D63.8 Anemia in other chronic diseases classified elsewhere; I10 Essential (primary) hypertension; G47.33 Obstructive sleep apnea (adult) (pediatric); R73.02 Impaired glucose tolerance (oral); E78.00 Pure hypercholesterolemia, unspecified

== ENCOUNTER → 2024-08-21 12:36 | Outpatient (BNVA) | payer MEDICARE, SELFPAY | PROVIDERS: PCP Internal Medicine; Visit Provider Internal Medicine | DX: N40.0 Benign prostatic hyperplasia without lower urinary tract symptoms (principal); I10 Essential (primary) hypertension; D63.8 Anemia in other chronic diseases classified elsewhere; G47.33 Obstructive sleep apnea (adult) (pediatric); E78.00 Pure hypercholesterolemia, unspecified; E11.65 Type 2 diabetes mellitus with hyperglycemia | CPT/HCPCS: 96127; 99212 ==

== ENCOUNTER 2024-09-12 07:52 | Outpatient (REF) | payer MEDICARE, SELFPAY ==
[2024-09-12 10:20] LABS: MANUAL DIFF FLAG NO
[2024-09-12 10:32] LABS: Basophils Percent Auto 0.5 % (0-2); Eosinophils Absolute Auto 0.2 X10*3/uL (0.0-0.4); Eosinophils Percent Auto 3.7 % (0-4); Hematocrit 40.6 % (42.0-52.0); Hemoglobin 13.9 g/dl (14.0-18.0); Imm Gran Abs Auto 0.01 X10*3/uL (0.00-0.03); Imm Gran Pct Auto 0.2 % (0.0-0.4); Lymphocytes Absolute Auto 2.7 X10*3/uL (1.2-4.9); Mean Corpuscular HGB Conc 34.2 g/dl (31.0-36.0); Mean Corpuscular Hemoglobin 31.2 pg (27.0-33.0); Mean Corpuscular Volume 91.2 fL (80.0-98.0); Mean Platelet Volume 10.2 fL (9.4-12.4); Monocytes Absolute Auto 0.5 X10*3/uL (0.1-1.2); Monocytes Percent Auto 8.6 % (2-11); Neutrophils Absolute Auto 2.8 x10*3/uL (2.0-8.3); Platelet Count 201 X10*3/uL (160-400); Red Blood Count 4.45 X10*6/uL (4.60-5.80); Red Cell Distribution Width 12.5 % (11.0-16.0); White Blood Count 6.3 X10*3/uL (4.8-10.8)
[2024-09-12 10:35] LABS: Estimated Average Glucose 134 mg/dL; Hemoglobin A1C 164.4953 umol/L; Hemoglobin A1c % 6.3 % (<6.0); Total Hemoglobin (HGBA1C) 3598.4275 umol/L
[2024-09-12 10:52] LABS: Alanine Aminotransferase 36 U/L (0-40); Albumin Level 4.3 g/dL (3.5-5.0); Alkaline Phosphatase 47 U/L (39-117); Anion Gap 8 (12-20); Aspartate Amino Transferase 27 U/L (5-37); Bilirubin Total 0.4 mg/dL (0.0-1.0); Blood Urea Nitrogen 20 mg/dL (9-16); Calcium 9.4 mg/dL (8.4-10.2); Carbon Dioxide 32 mmol/L (22-29); Chloride 108 mmol/L (96-108); Cholesterol 125 mg/dL (<200); Estimated Glomerular Filt Rate > 60; Glucose Random 128 mg/dL (60-115); HDL Cholesterol 40 mg/dL (>40); Iron 88 mcg/dL (45-160); LDL Cholesterol Calculated 68 mg/dL (<100); Percent Iron Saturation 36 % (15-50); Potassium 4.3 mmol/L (3.3-5.1); Sodium 144 mmol/L (135-145); Total Iron Binding Capacity 243 mcg/dL (228-428); Total Protein 7.1 g/dL (6.5-8.0); Triglycerides 86 mg/dL (<150); Unsaturated Iron Binding 155 ug/dL
[2024-09-12 10:59] LABS: Ferritin 158 ng/mL (20-250); Free T4 (Free Thyroxine) 0.86 ng/dL (0.71-1.85); Thyroid Stimulating Hormone 4.03 uIU/mL (0.32-4.0); Vitamin D 25-OH Total 56.2 ng/mL (>30)
[2024-09-12 11:03] LABS: Creatinine Urine 126.94 mg/dL
[2024-09-12 11:05] LABS: Folate 11.6 ng/mL (> or = 4.0); Prostate Specific Antigen Scr 0.13 ng/mL (<0.05-4.0); Vitamin B12 367 pg/mL (200-900)
[2024-09-17 18:42] LABS: Testosterone, Total 78 ng/dL (250-1100)
== END 2024-09-12 07:53 | disposition home or self-care (01) ==
LOC: HO.HMGCLDS 07:52
PROVIDERS: PCP Internal Medicine; Visit Provider Internal Medicine
DX: E11.65 Type 2 diabetes mellitus with hyperglycemia (principal); E78.00 Pure hypercholesterolemia, unspecified; Z12.5 Encounter for screening for malignant neoplasm of prostate
CPT/HCPCS: 36415; 80053; 80061; 82043; 82306; 82570; 82607; 82728; 82746; 83036; 83540; 84153; 84403; 84439; 84443; 85025

== ENCOUNTER 2024-10-27 10:21 | Outpatient (AMB) | payer MEDICARE, SELFPAY ==
[2024-10-27 10:41] VITALS: PULSE 60; O2SAT 97; BMI 27.4
--- NOTE | 2024-10-27 10:41 | A.OFFVIS_ITS ---
Vital Signs 10/27/24 10:41 Height 5 ft 11 in Weight 196 lb 2 oz BMI 27.4 Pulse 60 Pulse Source Pulse Oximeter Pulse Oximetry (%) 97 Oxygen Delivery Method Room Air Intake Visit Reasons: INP:JACQUELYN Intake Note: Patient presents [facility] JACQUELY[facility]. PAtients states tired during the day and takes a nap about half days. Allergies No Known Allergies [No Known Allergies*] Allergy (Verified 10/27/24 10:45) HPI Comments Details: 79 year old male referred to us for sleep evaluation. 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 His last home sleep study was in 2019. His c/o of his snoring, and he gasps for air. He goes to bed at 11pm and gets up at 7am, with 1 bathroom break. He wakes up when the mask falls off and noise from the oxygen also wakes him up at night. He wakes up feeling a lack of energy , then he has 2 cups of coffee which starts his day. He is fatigued most days. He goes for a walk on the treadmill 30 min. He had a nose bleed today as he was walking into our office he walked straight into the glass door. He has a h/o of Anemia of Chronic Diseases but denies chronic bleeding. He uses a CPAP machine but has not been evaluated for sleep in years. His mood is good, memory is okay, he keeps notes and reminders. His diet is stable. He does not smoke but drinks 4/7 nights a week 2 glasses of wine per night. [facility] Medical History Nephrolithiasis Anemia Cervical spinal stenosis Hypertension Degenerative disc disease, cervical Obstructive sleep apnea syndrome, moderate Vitamin D deficiency BPH (benign prostatic hyperplasia) Bilateral renal stones History of TIA (transient ischemic attack) Impaired glucose tolerance Hypercholesterolemia 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 Rash, skin Right shoulder pain Folliculitis Surgical History Hx of cystoscopy H/O colonoscopy H/O lithotripsy History of tonsillectomy Social History Housing: House Alcohol intake: current Comment: 4 x a week 1-2 drinks Patient Tobacco Use Status: Former Tobacco user Tobacco use type: Cigarette Years Smoked: 1989 quit e-Cigarette/Vaping Use: Never Used Second Hand Smoke Exposure: No service: No Current occupational status: retired Current occupation: Right Handed Cognitive needs: No Hearing needs: No Vision needs: Yes Physical Exam Vital Signs: Last Vital Signs Pulse 60 10/27/24 10:41 Pulse Ox 97 10/27/24 10:41 Oxygen Delivery Method Room Air 10/27/24 10:41 BMI result Body Mass Index 27.4 Const General: cooperative, comfortable and no acute distress Nutritional Appearance: average body habitus Orientation/consciousness: patient oriented x3 HEENT Face and sinus: Yes normal facial exam and Yes face symmetric Teeth and gingiva: other (Mallmapti score of 3) Eyes Pupils: Equal, round and reactive pupils present Neck Neck: Yes full ROM and Yes supple Resp Effort & Inspection: normal respiratory effort and able to speak in complete sentences Neuro General: patient oriented x3 and moves all extremities Cranial nerves: Yes CN's II-XII intact bilaterally, Yes Facial sensation intact/muscles of mastication intact, Yes Equal, round and reactive pupils present, Yes Normal accommodation reflex present, Yes Bilaterally intact EOM present, Yes Normal facial strength present, Yes Ability to bilaterally rotate head present and Yes Ability to bilaterally elevate shoulders present Gait exam (Neuro): Normal gait present Motor exam (neuro): 5/5 motor strength present throughout and Normal motor muscle tone present throughout Deep tendon reflexes (DTR's): Right triceps reflex intensity grade: 2+, Left triceps reflex intensity grade: 2+, Rt Biceps (C5, C6): 2+, Left biceps reflex intensity grade: 2+, Right brachioradialis reflex intensity grade: 2+, Left brachioradialis reflex intensity grade: 2+, Right patellar reflex intensity grade: 2+ and Left patellar reflex intensity grade: 2+ Psych Appearance: grossly normal Thought process: Normal thought process present Thought content: Normal thought content present Assessment & Plan Assessment & Plan (1) Fatigue: Code(s): R53.83 - Other fatigue Category: Medical Qualifiers: Fatigue type: chronic, unspecified Qualified Code(s): R53.82 - Chronic fatigue, unspecified Plan HST evaluate sleep disorder and titrate pressures if necessary. Cognitive difficulties will evaluate with MMSE at next visit. Anemia of Chronic Diseases/ TSH Labs completed / A1c is elevated defer to PCP Orders: Orders RT home sleep study Today G47.19 - Other hypersomnia Patient Instructions: Sleep Hygiene provided: Sleep in a dark cool room, temperatures below 68 degrees and no devices in bed. May read a book, limit fluids 2 hours prior to bedtime. May diffuse essential oils or play soft music as needed. Coding Level of Care Code New Pt Level 4 (01479) Diagnoses Chronic fatigue R53.82 Fatigue type: chronic, unspecified Time Spent (min) 30 Comment Evaluation Sleep Questionnaire Difficulty falling asleep: No Difficulty staying asleep?: No Number of arousals: 1-2 Snoring: Yes Witnessed apneas: Yes Gasping arousals: Yes Nocturia: No GERD: No Vivid dreams: No Acting out dreams: No Abnormal behavior in sleep: No Abnormal movements in sleep: No Morning headaches: No Excessive daytime sleepiness: No Daytime naps: Yes Restless legs: No Hallucinations: No Sleep paralysis: No Drop attacks: No Sleep Study: Yes (>6 years ago) CPAP: Yes
== END 2024-10-27 11:49 | disposition home or self-care (01) ==
PROVIDERS: PCP Internal Medicine; Visit Provider Physician Assistant Medical
DX: R53.82 Chronic fatigue, unspecified (principal)
CPT/HCPCS: 99204

== ENCOUNTER → 2024-10-27 10:21 | Outpatient (BNVA) | payer MEDICARE, SELFPAY | PROVIDERS: PCP Internal Medicine; Visit Provider Physician Assistant Medical | DX: R53.82 Chronic fatigue, unspecified (principal) | CPT/HCPCS: 99202 ==

== ENCOUNTER 2024-11-20 14:20 | Outpatient (AMB) | payer MEDICARE, SELFPAY ==
[2024-11-20 14:28] VITALS: BP 140/60; PULSE 57; RESP 16; TEMP 36.9; O2SAT 98; BMI 26.0
--- NOTE | 2024-11-20 14:28 | MHC.PC.OV ---
Vital Signs 11/20/24 14:28 Height 5 ft 11 in Weight 186 lb 6.4 oz BMI 26.0 BP 140/60 H Blood Pressure Location Lt brachial Position Sitting Respiration 16 Pulse 57 Pulse Source Pulse Oximeter Temp 98.5 F Temp Source Oral Pulse Oximetry (%) 98 Oxygen Delivery Method Room Air Intake Visit Reasons: 3 Month F/U - see comments Field Marketing Specialist Required: No Accompanied by: Self / Same As Patient Allergies No Known Allergies [No Known Allergies*] Allergy (Verified 11/20/24 14:48) Medication List - Last Reconciled 11/20/24 by JAZMYN Dan aspirin (Adult Aspirin Regimen) 81 mg PO DAILY cholecalciferol (vitamin D3) 25 mcg PO DAILY CPAP As directed hydrochlorothiazide 12.5 mg PO DAILY rosuvastatin 5 mg PO DAILY Tobacco use date assessed: 11/20/24 Fall risk assessment: No Falls in past year Last assessed Fall Risk: 11/20/24 Dental Screening Dental Screen Date: 11/20/24 Did you have a dental visit in the last 12 months?: Yes Did you have a dental problem in the last 6 months where you did not have access to dental care?: No Was dental information given to patient?: Patient has dentist HPI 3 Month F/U - see comments HPI Details Patient is a 79-year-old male with significant past medical history of hypertension, obstructive sleep apnea, BPH, impaired glucose tolerance, chronic anemia and fatigue The patient is presenting for follow up of chronic conditions. Patient wants to know if he could reverse his diabetes with dieting He also wants to know how he could fix his anemia. Patient is complaining of hot flashes during the day, night sweats, sense of taste and smell are not what they used to be. Patient reports that he was on finasteride for a while and he is not sure if this is contributing to these symptoms Patient denies shortness of breath, chest pain, heart palpitation [facility] Medical History Nephrolithiasis Anemia Cervical spinal stenosis Hypertension Degenerative disc disease, cervical Obstructive sleep apnea syndrome, moderate Vitamin D deficiency BPH (benign prostatic hyperplasia) Bilateral renal stones History of TIA (transient ischemic attack) Impaired glucose tolerance Hypercholesterolemia 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 Rash, skin Right shoulder pain Folliculitis Surgical History Hx of cystoscopy H/O colonoscopy H/O lithotripsy History of tonsillectomy Social History Housing: House Alcohol intake: current Comment: 4 x a week 1-2 drinks Patient Tobacco Use Status: Former Tobacco user Tobacco use type: Cigarette Years Smoked: 1989 quit e-Cigarette/Vaping Use: Never Used Second Hand Smoke Exposure: No service: No Current occupational status: retired Current occupation: Right Handed Cognitive needs: No Hearing needs: No Vision needs: Yes (Glasses) Questionnaire PHQ-9 Over the last 2 weeks, how often have you been bothered by any of the following problems? 1. Little interest or pleasure in doing things: not at all 2. Feeling down, depressed, or hopeless: not at all 3. Trouble falling or staying asleep, or sleeping too much: not at all 4. Feeling tired or having little energy: not at all 5. Poor appetite or overeating: not at all 6. Feeling bad about yourself - or that you are a failure or have let yourself or your family down: not at all 7. Trouble concentrating on things, such as reading the newspaper or watching television: not at all 8. Moving or speaking so slowly that other people could have noticed. Or the opposite - being so fidgety or restless that you have been moving around a lot more than usual: not at all 9. Thoughts that you would be better off or of hurting yourself in some way: not at all Total score: 0 Depression Screening Interpretation: Negative Depression Screening Done: Yes 90049 - PHQ-9 Billing: Yes Source: Developed by Drs. Nacho Carvalho, Alta Rivera, Greg Torres and colleagues, with an educational ger from [employer]. Thrive Questionnaire Date Thrive assessed: 11/20/24 I am a: Patient What is your living situation today?: I have a steady place to live Within the past 12 months, did the food you bought not last and you didn't have the money to get more?: Never true Within the past 12 months, did you worry whether your food would run out before you got money to buy more?: Never true Do you have trouble paying for medicines?: No Do you have trouble getting transportation to medical appointments?: No Do you have trouble paying your heating and electricity bill?: No Do you have trouble taking care of your child, family member or friend?: No Do you have trouble with day-to-day activities such as bathing, preparing meals, shopping, managing finances, etc.?: No Are you currently unemployed and looking for a job?: No Are you interested in more education?: No Please select the resources that you would like help with: None Currently or been in a relationship where the following occur: No concerns reported THRIVE Score: 0 AUDIT C Alcohol Use Questionnaire (AUDIT-C) 1. How often do you have a drink containing alcohol?: 2-3 times a week 2. How many drinks containing alcohol do you have on a typical day when you are drinking?: 1 or 2 3. How often do you have six or more drinks on one occasion?: Never Total Score: 3 AMI-7 AMB Questionnaire AMI-7 Date AMI - 7 assessed: 11/20/24 Feeling nervous, anxious, or on edge: 0 = Not at all Not being able to stop or control worryin = Not at all Worrying too much about different things: 0 = Not at all Trouble relaxin = Not at all Being so restless that it is hard to sit still: 0 = Not at all Becoming easily annoyed or irritable: 0 = Not at all Feeling afraid as if something awful might happen: 0 = Not at all Total AMI-7 score (0-4 normal; 5-9 mild; 10-14 moderate; 15-21 severe): 0 Source: Developed by Drs. Nacho Carvalho, Alta Rivera, Greg Torres and colleagues, with an educational ger from [employer]. AMI-7 Assessment Billing AMI-7 Assessment Tool: AMI-7 Assessment 28701 Review of Systems Const Reports excessive sweating (At night), Reports fatigue, Denies headache(s) and Reports night sweats Eyes Denies loss of vision and Reports other (decreased in vision due to retinal scaring) ENT Denies vertigo, Denies dizziness, Denies headache(s) and Denies sore throat Card Denies chest pain, Denies leg edema and Denies lightheadedness Resp Denies cough, Denies hemoptysis and Denies wheezing GI Denies abdominal pain, Denies melena, Denies constipation, Denies diarrhea and Denies vomiting Denies dysuria, Denies urinary frequency and Denies urinary urgency Musc Reports arthralgias, Denies joint swelling, Denies numbness and Denies tingling Neuro Denies Abnormal speech present, Denies behavioral changes, Denies vertigo, Denies dizziness, Denies headache(s), Denies loss of vision, Denies memory loss, Denies numbness and Denies tingling Psych Denies anxiety, Denies behavioral changes, Denies depression, Denies memory loss and Denies panic attacks Endo Reports excessive sweating (At night) and Reports fatigue Perry/Lymph Denies easy bleeding and Denies easy bruising Aller/Immun Denies wheezing Physical exam (Primary Care) Vital Signs: Last Vital Signs Temp 98.5 F 11/20/24 14:28 Pulse 57 11/20/24 14:28 Resp 16 11/20/24 14:28 BP 140/60 H 11/20/24 14:28 Pulse Ox 98 11/20/24 14:28 Oxygen Delivery Method Room Air 11/20/24 14:28 BMI result Body Mass Index 26.0 Tobacco/Smoking Status: Tobacco use Status Tobacco use date assessed 11/20/24 11/20/24 14:31 Patient Tobacco Use Status Former Tobacco user 11/20/24 14:31 Tobacco use type Cigarette 11/20/24 14:31 e-Cigarette/Vaping Use Never Used 11/20/24 14:31 PHQ-9: PHQ-9 Score PHQ-9: Total score 0 11/20/24 14:56 Depression Screening Interpretation: Negative Thrive Assessment: Date of Thrive Assessment Date Thrive assessed 11/20/24 11/20/24 14:31 Currently or been in a relationship where the following occur: No concerns reported Const General: healthy appearing, no acute distress, alert and awake Nutritional Appearance: well nourished Orientation/consciousness: oriented to person, oriented to place and oriented to time HENMT Ears: external ears normal General nose exam: Normal external nose present Eyes Conjunctivae: conjunctivae normal Sclerae: sclerae normal Pupils: Equal, round and reactive pupils present Neck Neck: Yes no lymphadenopathy and Yes no JVD Thyroid: Thyroid normal Carotids: no bruits Resp Effort & Inspection: normal respiratory effort and not tachypneic Auscultation: no crackles, no rales, no rhonchi and no wheezes Cardio Rate: regular rate Rhythm: regular rhythm Heart sounds: no murmurs and normal S1 and S2 GI Palpation (GI): Soft to palpation, nontender, no hepatomegaly and no splenomegaly Auscultation: normal bowel sounds General: Yes no CVA tenderness Back/Spine/Pelvis Back: no CVA tenderness Thoracic/Lumbar Spine: No thoracic spinal tenderness and No lumbar spinal tenderness Skin General skin exam: no rashes or lesions noted and dry skin Neuro General: oriented to person, oriented to place and oriented to time Cranial nerves: Yes Equal, round and reactive pupils present Speech: No Abnormal speech present Gait exam (Neuro): Normal gait present Motor exam (neuro): Tremors during motor activity present (right hand) Extrem Right upper extremity: full ROM Left upper extremity: full ROM Right lower extremity: full ROM; no edema Left lower extremity: full ROM; no edema Psych Mental Status: mental status grossly normal Speech and movement: Normal speech and movement present Affect: normal affect Attitude: cooperative Thought process: Normal thought process present Results Reviewed Results Reviewed: Laboratory Tests 09/12/24 07:55 WBC 6.3 RBC 4.45 L Hgb 13.9 L Hct 40.6 L MCV 91.2 MCH 31.2 Plt Count 201 Sodium 144 Potassium 4.3 Chloride 108 Carbon Dioxide 32 H Anion Gap 8 L BUN 20 H Creatinine 0.86 Estimated GFR > 60 Random Glucose 128 H Hemoglobin A1c % 6.3 H Iron 88 TIBC 243 % Saturation 36 Unsat Iron Binding 155 Ferritin 158 Total Bilirubin 0.4 AST 27 ALT 36 Alkaline Phosphatase 47 Total Protein 7.1 Albumin 4.3 Triglycerides 86 Cholesterol 125 LDL Cholesterol, Calc 68 HDL Cholesterol 40 L PSA Screen 0.13 Vitamin B12 367 25-OH Vitamin D Total 56.2 Folate 11.6 TSH 4.03 H Free T4 0.86 Total Testosterone 78 L Coding Level of Care Code Est Pt Level 4 (84494) Diagnoses Chronic fatigue R53.82 Fatigue type: chronic, unspecified Type 2 diabetes mellitus with hyperglycemia, without long-term current use of insulin E11.65 Diabetes mellitus jail insulin use: without jail use Enlarged prostate N40.0 Anemia of chronic disease D63.8 Primary hypertension I10 Hypertension type: primary hypertension Hypercholesterolemia E78.00 Obstructive sleep apnea syndrome, moderate G47.33 Additional Codes AMI-7 Assessment Billing - AMI-7 Assessment Tool: AMI-7 Assessment 20084 ([id number]) PHQ-9 - 14996 - PHQ-9 Billing: Yes ([id number]) Time Spent (min) 42 Assessment & Plan Assessment & Plan (1) Fatigue: Code(s): R53.83 - Other fatigue Category: Medical Qualifiers: Fatigue type: chronic, unspecified Qualified Code(s): R53.82 - Chronic fatigue, unspecified Plan: Multifactorial: Patient has chronic anemia, JACQUELYN, and hypothryroidism. The patient testosterone is low at 78 ng. Will referral the patient to urology; he already has a relationship with Dr. Goodrich who has been monitoring him for BPH (2) Type 2 diabetes mellitus with hyperglycemia: Code(s): E11.65 - Type 2 diabetes mellitus with hyperglycemia Category: Medical Qualifiers: Diabetes mellitus jail insulin use: without jail use Qualified Code(s): E11.65 - Type 2 diabetes mellitus with hyperglycemia Plan: A1C 6.3%. The patient is currently not on any medication for diabetes. Continue dietary modifications (3) Enlarged prostate: Comment: February 2023 Normal appearance of the kidneys. 2. Large post void residual. 3. 1.0 cm bladder calculus. 4. Enlarged prostate. GreenLight laser enucleation 08/15/2023 Code(s): N40.0 - Benign prostatic hyperplasia without lower urinary tract symptoms Category: Medical Plan: Patient was on finasteride and apparently stopped this medication. Reports that his symptoms are manageable. Follow up with Urology as scheduled (4) Anemia of chronic disease: Code(s): D63.8 - Anemia in other chronic diseases classified elsewhere Category: Medical Plan: Chronic stable anemia. Continue consuming foods high in iron. (5) Hypertension: Comment: no meds Code(s): I10 - Essential (primary) hypertension Category: Medical Qualifiers: Hypertension type: primary hypertension Qualified Code(s): I10 - Essential (primary) hypertension Plan: Reinforced low-sodium diet Continue hydrochlorothiazide 12.5 mg daily (6) Hypercholesterolemia: Code(s): E78.00 - Pure hypercholesterolemia, unspecified Category: Medical Plan: Cholesterol within goal Reinforced low cholesterol diet and activity as tolerated Continue rosuvastatin 5 mg daily (7) Obstructive sleep apnea syndrome, moderate: Comment: AHI 17/hr, O2 james 80% Code(s): G47.33 - Obstructive sleep apnea (adult) (pediatric) Category: Medical Plan: Continue CPAP. Follow up with pulmonology as scheduled
== END 2024-11-20 15:27 | disposition home or self-care (01) ==
LOC: HO.HMCH 14:21
PROVIDERS: PCP Internal Medicine
DX: R53.82 Chronic fatigue, unspecified (principal); E11.65 Type 2 diabetes mellitus with hyperglycemia; N40.0 Benign prostatic hyperplasia without lower urinary tract symptoms; D63.8 Anemia in other chronic diseases classified elsewhere; I10 Essential (primary) hypertension; E78.00 Pure hypercholesterolemia, unspecified; G47.33 Obstructive sleep apnea (adult) (pediatric)

== ENCOUNTER → 2024-11-20 14:20 | Outpatient (BNVA) | payer MEDICARE, SELFPAY | PROVIDERS: PCP Internal Medicine | DX: R53.82 Chronic fatigue, unspecified (principal); E11.65 Type 2 diabetes mellitus with hyperglycemia; N40.0 Benign prostatic hyperplasia without lower urinary tract symptoms; D63.8 Anemia in other chronic diseases classified elsewhere; I10 Essential (primary) hypertension; E78.00 Pure hypercholesterolemia, unspecified; G47.33 Obstructive sleep apnea (adult) (pediatric) | CPT/HCPCS: 96127; 99212 ==

== ENCOUNTER → 2024-12-30 14:33 | Outpatient (REF) | payer MEDICARE, SELFPAY | LOC: HO.SL 14:33 | PROVIDERS: PCP Internal Medicine; Visit Provider Physician Assistant Medical | DX: G47.19 Other hypersomnia (principal) | CPT/HCPCS: 95806 ==

== ENCOUNTER → 2024-12-30 14:53 | Outpatient (BNV) | payer MEDICARE, SELFPAY | PROVIDERS: PCP Internal Medicine; Visit Provider Psychiatry & Neurology Neurology | DX: G47.33 Obstructive sleep apnea (adult) (pediatric) (principal); G47.10 Hypersomnia, unspecified | CPT/HCPCS: 95806 ==

== ENCOUNTER 2025-01-26 10:47 | Outpatient (AMB) | payer MEDICARE, SELFPAY ==
--- NOTE | 2025-01-26 11:01 | MHC.OFFVIS ---
Vital Signs 01/26/25 11:02 Height 5 ft 11 in Weight 192 lb BMI 26.8 BP 142/72 H Blood Pressure Location Rt brachial Position Sitting Pulse 73 Pulse Source Pulse Oximeter Pulse Oximetry (%) 96 Oxygen Delivery Method Room Air Intake Visit Reasons: 3 mnts f/u appt Intake Note: Patient presents follow up Sleep. HST in chart(AHI-14, SHIRIN 84%. Snoring 169.8min(34%). Trial APAP 5-20cm water. Allergies No Known Allergies [No Known Allergies*] Allergy (Verified 01/30/25 11:21) HPI Comments Details: 79 year old male referred to us for sleep evaluation. HST 01/08/2025 AHI was 14 and O2 Nadirs to 84%, continue cpap therapy as patient feels better with cpap use. HEIDI compliance report 10/28/2024- 01/26/2025 Total Use 89/90 days and 99% >4 hours 78 days and 87% Avg total days used 6 hours 45 min, Press [id number] and Leaks median 12. 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 His last home sleep study was in 2019. His c/o of his snoring, gasping for air. He feels fatigued daily takes a nap daily 15min-30min. He goes to bed at 11pm and gets up at 7am, with 1 bathroom break, the noise from the pressures of air from cpap wake him up. He wakes up feeling a lack of energy , and has 2 cups of coffee to start his day. He walks daily for 30 min and lifts 5lbs of weights 2-3x a week. He has a h/o TIA / and Anemia of Chronic Diseases, denies bleeding. His mood is good, memory is okay, he keeps notes and reminders. His diet is stable. Eliminated sugar from his diet. He likes to drink 2 glasses of wine per night daily, we discussed monitoring alcohol intake as it can cause him to go to the bathroom more often and night and makes him more sluggish. He is supposed to f/u with his urologist this week as his bp is not managed well. He says he has white coat htn, bp is elevated to 142/72, again today. He washes his mask, tubing and changes filters as needed, fills reservoir with water daily. 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 Rash, skin Right shoulder pain Folliculitis Surgical History Hx of cystoscopy H/O colonoscopy H/O lithotripsy History of tonsillectomy Social History Housing: House Alcohol intake: current Comment: 4 x a week 1-2 drinks Patient Tobacco Use Status: Former Tobacco user Tobacco use type: Cigarette Years Smoked: 1989 quit e-Cigarette/Vaping Use: Never Used Second Hand Smoke Exposure: No service: No Current occupational status: retired Current occupation: Right Handed Cognitive needs: No Hearing needs: No Vision needs: Yes (Glasses) Review of Systems Const All systems reviewed & are unremarkable except as noted in HPI and below Physical Exam Vital Signs: Last Vital Signs Pulse 73 01/26/25 11:02 BP 142/72 H 01/26/25 11:02 Pulse Ox 96 01/26/25 11:02 Oxygen Delivery Method Room Air 01/26/25 11:02 BMI result Body Mass Index 26.8 Const General: cooperative, comfortable and no acute distress Nutritional Appearance: overweight Orientation/consciousness: patient oriented x3 HEENT Face and sinus: Yes face symmetric Eyes Pupils: Equal, round and reactive pupils present Neck Other: limited extension, with stiffness on lateral rotation. Resp Effort & Inspection: normal respiratory effort and able to speak in complete sentences Neuro Other: limited rom on lateral rotation, pain elicited on extension General: patient oriented x3 and moves all extremities Cranial nerves: Yes Facial sensation intact/muscles of mastication intact, Yes Equal, round and reactive pupils present, Yes Normal accommodation reflex present, Yes Normal facial strength present, Yes Midline tongue present and Yes Ability to bilaterally rotate head present (with limited rom) Cognition (Neuro): normal cognition Gait exam (Neuro): Normal gait present Psych Appearance: grossly normal Thought process: Normal thought process present Thought content: Normal thought content present Results Reviewed Results Reviewed: HEIDI compliance report 10/28/2024- 01/26/2025 Total Use 89/90 days and 99% >4 hours 78 days and 87% Avg total days used 6 hours 45 min, Press [id number] and Leaks median 12. 6 AHI is 5.7/hr Assessment & Plan Assessment & Plan (1) HEIDI (obstructive sleep apnea): Code(s): G47.33 - Obstructive sleep apnea (adult) (pediatric) Category: Medical (2) Fatigue: Code(s): R53.83 - Other fatigue Category: Medical Qualifiers: Fatigue type: chronic, unspecified Qualified Code(s): R53.82 - Chronic fatigue, unspecified Plan HEIDI 01/08 HST is c/w mild heidi AHI is 13.6 and oxygen nadirs to 84%. Cognitive difficulties, forgetful. Labs Anemia of Chronic Diseases stable/ TSH Labs completed / A1c is elevated. Patient Instructions: Sleep Hygiene provided: set a scheduled bedtime and wake time to help regulate the circadian rhythm and balance the release of pituitary hormones. Sleep in a dark room, temperatures below 68 degrees, and no devices n bed. Limit caffeinated products 6 hours prior to bed, and limit fluids 2-4 hours prior to bed. Gentle night yoga, diffusing essential oils, and playing soft music can be relaxing. HEIDI compliance report 10/28/2024- 01/26/2025 Total Use 89/90 days and 99% >4 hours 78 days and 87% Avg total days used 6 hours 45 min, Press [id number] and Leaks median 12. 6 AHI is 5.7/hr Coding Level of Care Code Est Pt Level 4 (82194) Diagnoses HEIDI (obstructive sleep apnea) G47.33 Chronic fatigue R53.82 Fatigue type: chronic, unspecified Time Spent (min) 30 Comment improving
[2025-01-26 11:02] VITALS: BP 142/72; PULSE 73; O2SAT 96; BMI 26.8
== END 2025-01-26 12:09 | disposition home or self-care (01) ==
LOC: HO.HSMS 10:48
PROVIDERS: PCP Internal Medicine; Visit Provider Physician Assistant Medical
DX: G47.33 Obstructive sleep apnea (adult) (pediatric) (principal); R53.82 Chronic fatigue, unspecified
CPT/HCPCS: 99214

== ENCOUNTER → 2025-01-26 10:47 | Outpatient (BNVA) | payer MEDICARE, SELFPAY | PROVIDERS: PCP Internal Medicine; Visit Provider Physician Assistant Medical | DX: G47.33 Obstructive sleep apnea (adult) (pediatric) (principal); R53.82 Chronic fatigue, unspecified; Z99.89 Dependence on other enabling machines and devices | CPT/HCPCS: 99212 ==

== ENCOUNTER 2025-01-30 11:04 | Outpatient (AMB) | payer MEDICARE, SELFPAY ==
--- NOTE | 2025-01-30 11:20 | A.OFFVIS_ITS ---
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 He is a patient of Dr. Barron. Seen for the following urologic conditions - nephrolithiasis - lower urinary tract symptoms - bladder stone Found to have low testosterone Does experience hot flashes Plan on completion of full hormone panel Hypogonadism 09/20 T 76 with fatigue Sleep apnea Has experienced hot flashes HbA1c 09/20 6.3% Lower urinary tract symptoms Progressive urgency and frequency Found to have bladder stone 1.5 cm cystoscopy Intervention - 08/18 GreenLight laser prostatectomy and stone removal PSA - 12/18 <0.1 PFSH Medical History Nephrolithiasis Anemia Cervical spinal stenosis Hypertension Degenerative disc disease, cervical Obstructive sleep apnea syndrome, moderate Vitamin D deficiency BPH (benign prostatic hyperplasia) Bilateral renal stones History of TIA (transient ischemic attack) Impaired glucose tolerance Hypercholesterolemia 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 Rash, skin Right shoulder pain Folliculitis Surgical History Hx of cystoscopy H/O colonoscopy H/O lithotripsy History of tonsillectomy Social History Housing: House Alcohol intake: current Comment: 4 x a week 1-2 drinks Patient Tobacco Use Status: Former Tobacco user Tobacco use type: Cigarette Years Smoked: 1989 quit e-Cigarette/Vaping Use: Never Used Second Hand Smoke Exposure: No service: No Current occupational status: retired Current occupation: Right Handed Cognitive needs: No Hearing needs: No Vision needs: Yes (Glasses) Review of Systems Const Denies chills and Denies fever(s) Card Reports no additional complaints and Denies syncope Resp Denies cough GI Denies abdominal pain and Denies heartburn Reports as per HPI and Denies change in libido Neuro Denies syncope Psych Denies change in libido Endo Denies change in libido Physical Exam Const General: cooperative, healthy appearing, comfortable and no acute distress Orientation/consciousness: patient oriented x3 HEENT Face and sinus: Yes normal facial exam Mouth: moist mucous membranes Neck Neck: Yes normal visual inspection, Yes full ROM and Yes trachea midline Chest Chest palpation & inspection: normal inspection of the chest Resp Effort & Inspection: normal respiratory effort, able to speak in complete sentences and no respiratory distress GI Inspection: Yes normal to inspection Back/Spine/Pelvis Cervical Spine: normal cervical lordosis Thoracic/Lumbar Spine: thoracic and lumbar spine normal to inspection Skin General skin exam: no rashes or lesions noted Neuro General: patient oriented x3, gait normal, tone normal and moves all extremities Extrem General: Yes normal to inspection and Yes capillary refill normal Results AMB Urinalysis, Automated UA Leukoctes 0 Dee/uL Last Edit by Hudson Elaine, [facility] on 01/30/25 13:22 UA Nitrite Last Edit by Hudson Elaine, [facility] on 01/30/25 13:22 UA Urobilinogen 3.5 mg/dL Last Edit by Hudson Elaine, [facility] on 01/30/25 13:22 UA Protein 15 mg/dL Last Edit by Hudson Elaine, [facility] on 01/30/25 13:22 UA pH 6.0 Last Edit by Hudson Elaine, [facility] on 01/30/25 13:22 UA Blood 0 Jonathan/uL Last Edit by Hudson Elaine, [facility] on 01/30/25 13:22 UA Specific Fischer 1.025 Last Edit by Hudson Elaine, [facility] on 01/30/25 13:22 UA Ketone Last Edit by Hudson Elaine, [facility] on 01/30/25 13:22 UA Bilirubin 17 mg/dL Last Edit by Hudson Elaine, [facility] on 01/30/25 13:22 UA Glucose 0 mg/dL Last Edit by Hudson Elaine, [facility] on 01/30/25 13:22 Results Reviewed Results Reviewed: Laboratory Last Values Urine pH (Auto) 6.0 01/30/25 12:03 Specific Fischer (Auto) 1.025 01/30/25 12:03 Urine Protein (Auto) 15 mg/dL 01/30/25 12:03 Glucose (UA)(Auto) 0 mg/dL 01/30/25 12:03 Urine Blood (Auto) 0 Jonathan/uL 01/30/25 12:03 Urine Bilirubin (Auto) 17 mg/dL 01/30/25 12:03 Urine Urobilinogen (Auto) 3.5 mg/dL 01/30/25 12:03 Leukocyte Esterase (Auto) 0 Dee/uL 01/30/25 12:03 Assessment & Plan Assessment & Plan (1) Bilateral renal stones: Comment: Lithotripsy Dr. Christina February, May 2018 Code(s): N20.0 - Calculus of kidney Category: Medical (2) Hypogonadism in male: Code(s): E29.1 - Testicular hypofunction Category: Medical Plan Two month follow-up full testosterone profile Orders: Orders AMB Urinalysis Automated Today N40.0 - Benign prostatic hyperplasia without lower urinary tract symptoms, N40.1 - Benign prostatic hyperplasia with lower urinary tract symptoms, R35.0 - Frequency of micturition Follicle Stimulating Hormone Today R79.89 - Other specified abnormal findings of blood chemistry Prolactin Today R79.89 - Other specified abnormal findings of blood chemistry Testosterone, Free/Total Today R79.89 - Other specified abnormal findings of blood chemistry Sex Hormone Binding Globulin Today R79.89 - Other specified abnormal findings of blood chemistry Lutenizing Hormone Today R79.89 - Other specified abnormal findings of blood chemistry IRON PROFILE Today R79.89 - Other specified abnormal findings of blood chemistry Patient Instructions: This note is constructed using voice recognition software. While every effort has been made to ensure accuracy fermenting cellars receiver errors may have been included. Imaging studies, laboratory and physical exam results were discussed and reviewed in detail. No major barriers to patient understanding were identified. An opportunity to ask questions regarding the treatment plan was provided. All questions were answered. The patient expressed understanding and agreement with the above treatment plan. The patient is aware they should contact our office by phone for worsening of their current condition or the appearance of new urologic symptoms. Compliance is encouraged with any medications and followup testing that is ordered. It is a privilege to participate in the urologic care of your patient. If you have any questions or concerns regarding treatment for the above conditions, or other urologic issues, please do not hesitate to contact me. The office telephone contact is [phone]. Sincerely, Dr Pipo Goodrich MD, [facility] - Urology Compassionate Specialist Care for the Genitourinary System Coding Level of Care Code Est Pt Level 3 (66077) Complex EM visit Add On G2211 Diagnoses Bilateral renal stones N20.0 Hypogonadism in male E29.1
== END 2025-01-30 12:09 | disposition home or self-care (01) ==
LOC: HO.HUSH 11:04
PROVIDERS: PCP Internal Medicine; Visit Provider Urology
DX: N40.0 Benign prostatic hyperplasia without lower urinary tract symptoms (principal); N40.1 Benign prostatic hyperplasia with lower urinary tract symptoms; R35.0 Frequency of micturition; N20.0 Calculus of kidney; E29.1 Testicular hypofunction
CPT/HCPCS: 99213; G2211

== ENCOUNTER → 2025-01-30 11:04 | Outpatient (BNVA) | payer MEDICARE, SELFPAY | PROVIDERS: PCP Internal Medicine; Visit Provider Urology | DX: E29.1 Testicular hypofunction (principal); N20.0 Calculus of kidney; R35.0 Frequency of micturition; R79.89 Other specified abnormal findings of blood chemistry | CPT/HCPCS: 81003; 99212 ==

== ENCOUNTER 2025-03-06 08:00 | Outpatient (REF) | payer MEDICARE, SELFPAY ==
[2025-03-06 10:36] LABS: MANUAL DIFF FLAG NO
[2025-03-06 10:37] LABS: Appearance Urine Clear; Glucose Urine UA Negative (Negative); PH 6.0 (5.0-9.0); Specific Gravity - Urine 1.010 (1.005-1.025)
[2025-03-06 10:44] LABS: Hematocrit 39.4 % (42.0-52.0); Hemoglobin 13.6 g/dl (14.0-18.0); Imm Gran Abs Auto 0.02 X10*3/uL (0.00-0.03); Imm Gran Pct Auto 0.4 % (0.0-0.4); Lymphocytes Absolute Auto 2.6 X10*3/uL (1.2-4.9); Mean Corpuscular HGB Conc 34.5 g/dl (31.0-36.0); Mean Corpuscular Hemoglobin 31.2 pg (27.0-33.0); Mean Corpuscular Volume 90.4 fL (80.0-98.0); NRBC Abs Auto 0.000 X10*3/uL (0.0-0.012); NRBC Pct Auto 0.0 /100WBC (0.0-0.2); Platelet Count 167 X10*3/uL (160-400); Red Blood Count 4.36 X10*6/uL (4.60-5.80); Reticulocytes Absolute 0.072 X10*6/uL (0.026-0.095); White Blood Count 4.9 X10*3/uL (4.8-10.8)
[2025-03-06 10:57] LABS: Hemoglobin A1C 163.1376 umol/L; Total Hemoglobin (HGBA1C) 3621.0549 umol/L
[2025-03-06 11:09] LABS: Alanine Aminotransferase 39 U/L (0-40); Albumin Level 4.5 g/dL (3.5-5.0); Alkaline Phosphatase 51 U/L (39-117); Anion Gap 12 (12-20); Aspartate Amino Transferase 30 U/L (5-37); Blood Urea Nitrogen 22 mg/dL (9-16); Calcium 9.4 mg/dL (8.4-10.2); Carbon Dioxide 31 mmol/L (22-29); Chloride 105 mmol/L (96-108); Cholesterol 129 mg/dL (<200); Estimated Glomerular Filt Rate > 60; HDL Cholesterol 44 mg/dL (>40); Iron 83 mcg/dL (45-160); Percent Iron Saturation 34 % (15-50); Potassium 4.6 mmol/L (3.3-5.1); Sodium 143 mmol/L (135-145); Total Iron Binding Capacity 245 mcg/dL (228-428); Total Protein 6.7 g/dL (6.5-8.0); Triglycerides 75 mg/dL (<150); Unsaturated Iron Binding 162 ug/dL
[2025-03-06 11:28] LABS: Iron 82 mcg/dL (45-160); Percent Iron Saturation 33 % (15-50); Total Iron Binding Capacity 245 mcg/dL (228-428); Unsaturated Iron Binding 163 ug/dL
[2025-03-06 11:32] LABS: Ferritin 138 ng/mL (20-250); Free T4 (Free Thyroxine) 0.89 ng/dL (0.71-1.85)
[2025-03-06 11:34] LABS: Thyroid Stimulating Hormone 3.33 uIU/mL (0.32-4.0)
[2025-03-06 11:41] LABS: Folate 9.4 ng/mL (> or = 4.0); Vitamin B12 321 pg/mL (200-900)
[2025-03-07 09:09] LABS: Follicle Stimulating Hormone 43.1 mIU/mL (1.4-12.8)
[2025-03-11 18:34] LABS: Testosterone, Free 7.7 pg/mL (30.0-135.0)
== END 2025-03-06 08:01 | disposition home or self-care (01) ==
LOC: HO.HMGCLDS 08:00
PROVIDERS: PCP Internal Medicine; Referring Provider Urology; Visit Provider Internal Medicine
DX: N40.1 Benign prostatic hyperplasia with lower urinary tract symptoms (principal); R79.89 Other specified abnormal findings of blood chemistry; R35.0 Frequency of micturition; E78.00 Pure hypercholesterolemia, unspecified; Z12.5 Encounter for screening for malignant neoplasm of prostate
CPT/HCPCS: 36415; 80053; 80061; 81001; 82607; 82728; 82746; 83001; 83002; 83036; 83540; 84146; 84153; 84270; 84402; 84403; 84439; 84443; 85025; 85045; 99212

== ENCOUNTER 2025-03-06 11:20 | Outpatient (AMB) | payer MEDICARE, SELFPAY ==
--- NOTE | 2025-03-06 11:26 | MHC.OFFVIS ---
Vital Signs 03/06/25 11:28 Height 5 ft 11 in Weight 187 lb 6.287 oz BMI 26.1 BP 174/72 H Blood Pressure Location Lt brachial Position Sitting Pulse 67 Intake Visit Reasons: Colonoscopy Screening Intake Note: Chung presents in the office as a new patient for a colonoscopy screening. CC: On the every 5 year plan and he is just due - no concerns! 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 male last medical history of JACQUELYN, tubular adenoma, BPH, bladder stone, osteoarthritis of left knee, hypertension is here today for pre colonoscopy screening.? Patient was sent to us by his PCP.? Last colonoscopy in 2019. Patient had diminutive polyp. No tubular adenoma. Family history of CRC and personal history of tubular adenoma. Patient denies any gastrointestinal symptoms in the past or at present.? Denies any personal or family history of gastrointestinal disease, colon polyps, or CRC.? Denies history of difficulty with sedation or anesthesia in the past.? History of sleep apnea, using his CPAP Denies any history of cardiac, renal, pulmonary, or hepatic disease.?? No history of infectious diseases like hepatitis A, B, C, HIV or tuberculosis.? 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 Rash, skin Right shoulder pain Folliculitis Surgical History Hx of cystoscopy H/O colonoscopy H/O lithotripsy History of tonsillectomy Family History (Updated 03/06/25 @ 11:29 by GUANAKO Mo) Mother Colon cancer Social History Housing: House Alcohol intake: current Comment: 4 x a week 1-2 drinks Patient Tobacco Use Status: Former Tobacco user Tobacco use type: Cigarette Years Smoked: 1989 quit e-Cigarette/Vaping Use: Never Used Second Hand Smoke Exposure: No service: No Current occupational status: retired Current occupation: Right Handed Cognitive needs: No Hearing needs: No Vision needs: Yes (Glasses) Review of Systems Const Denies weight gain and Denies weight loss ENT Reports no additional complaints, Denies dysphagia and Denies odynophagia Card Reports no additional complaints Resp Reports no additional complaints GI Denies abdominal pain, Denies belching, Denies melena, Denies bloating, Denies change in bowel habits, Denies dysphagia, Denies excessive flatus, Denies dyspepsia, Denies heartburn, Denies diarrhea, Denies loose stools, Denies nausea, Denies odynophagia and Denies vomiting Reports no additional complaints Musc Reports no additional complaints Neuro Reports no additional complaints Psych Reports no additional complaints Endo Reports no additional complaints Physical Exam Vital Signs: Last Vital Signs Pulse 67 03/06/25 11:28 BP 174/72 H 03/06/25 11:28 BMI result Body Mass Index 26.1 Const General: healthy appearing, no acute distress and well developed Nutritional Appearance: well nourished Orientation/consciousness: patient oriented x3 Resp Effort & Inspection: normal respiratory effort, able to speak in complete sentences, no tracheal deviation and symmetric chest movement Auscultation: clear to auscultation bilaterally Cardio Rate: regular rate GI Inspection: Yes normal to inspection and No distended Palpation (GI): Soft to palpation, not firm, nontender and No hepatosplenomegaly present Auscultation: normal bowel sounds General: Yes no CVA tenderness Back/Spine/Pelvis Back: no CVA tenderness Skin General skin exam: elasticity normal, turgor normal and dry skin Neuro General: patient oriented x3 Psych Appearance: grossly normal Mental Status: mental status grossly normal Assessment & Plan Assessment & Plan (1) Tubular adenoma of colon: Code(s): D12.6 - Benign neoplasm of colon, unspecified Category: Medical (2) Screen for colon cancer: Code(s): Z12.11 - Encounter for screening for malignant neoplasm of colon Plan Patient denies any GI, cardiac or respiratory symptoms.? Denies any issues with anesthesia in the past.? History of sleep apnea uses CPAP every night? No history infectious diseases in the past or present.? Patient is on low-dose aspirin.? Family history of CRC. Patient's mom was diagnosed with colon cancer it in her 70s.? Patient denies melena, hematochezia, unintentional weight loss or ribbon like stools.? Discussed at length the pre-procedure,? prep, diet & medications as well as what to expect prior, during and after the procedure.?? Stressed the importance of good bowel prep.? Recommended the use of Vaseline or Calmoseptine OTC & baby wipes with bowel movements to promote comfort.? ?Patient verbalizes understanding and agrees to plan of care.? He was given the opportunity to ask questions and all questions answered.? We will see him after the procedure.? Coding Level of Care Code New Pt Level 3 (15701) Complex EM visit Add On G2211 Diagnoses Tubular adenoma of colon D12.6 Screen for colon cancer Z12.11 Time Spent (min) 40 Comment 30 minutes spent with patient and additional 10 minutes spent reviewing her records
[2025-03-06 11:28] VITALS: BP 174/72; PULSE 67; BMI 26.1
== END 2025-03-06 12:33 | disposition home or self-care (01) ==
LOC: HO.HGI 11:20
PROVIDERS: PCP Internal Medicine; Visit Provider Nurse Practitioner Family
DX: Z01.818 Encounter for other preprocedural examination (principal); Z12.11 Encounter for screening for malignant neoplasm of colon; Z86.0101 Personal history of adenomatous and serrated colon polyps
CPT/HCPCS: 99024

== ENCOUNTER 2025-03-24 11:09 | Outpatient (AMB) | payer MEDICARE, SELFPAY ==
[2025-03-24 11:11] VITALS: BP 150/60; PULSE 67; RESP 18; TEMP 36.3; O2SAT 99; BMI 26.4
--- NOTE | 2025-03-24 11:11 | MHC.PC.OV ---
Vital Signs 03/24/25 11:11 03/24/25 11:21 Height 5 ft 11 in Weight 189 lb BMI 26.4 BP 150/60 H 132/60 Blood Pressure Location Lt brachial Lt brachial Position Sitting Sitting Respiration 18 Pulse 67 Pulse Source Pulse Oximeter Temp 97.3 F Temp Source Temporal Artery Scan Pulse Oximetry (%) 99 Oxygen Delivery Method Room Air Intake Visit Reasons: Annual PE- see comments Allergies No Known Allergies (No Known Allergies*) Allergy (Verified 03/24/25 11:13) Medication List - Last Reconciled 03/24/25 by Benjamin Barron MD aspirin (Adult Aspirin Regimen) 81 mg PO DAILY cholecalciferol (vitamin D3) 25 mcg PO DAILY CPAP As directed hydrochlorothiazide 12.5 mg PO DAILY rosuvastatin 5 mg PO DAILY Tobacco use date assessed: 03/24/25 Fall risk assessment: No Falls in past year Last assessed Fall Risk: 03/24/25 Dental Screening Dental Screen Date: 03/24/25 Did you have a dental visit in the last 12 months?: Yes Did you have a dental problem in the last 6 months where you did not have access to dental care?: No Was dental information given to patient?: Patient has dentist REPLACED BY [facility] Medical History (Updated 03/24/25 @ 11:18 by Benjamin Barron MD) JACQUELYN (obstructive sleep apnea) Impaired glucose tolerance Nephrolithiasis Anemia Cervical spinal stenosis Hypertension Degenerative disc disease, cervical Obstructive sleep apnea syndrome, moderate Vitamin D deficiency BPH (benign prostatic hyperplasia) Bilateral renal stones History of TIA (transient ischemic attack) Hypercholesterolemia 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 Rash, skin Right shoulder pain Folliculitis Surgical History Hx of cystoscopy H/O colonoscopy H/O lithotripsy History of tonsillectomy Family History Mother Colon cancer Social History Housing: House Alcohol intake: current Comment: 4 x a week 1-2 drinks Patient Tobacco Use Status: Former Tobacco user Tobacco use type: Cigarette Years Smoked: 1989 quit e-Cigarette/Vaping Use: Never Used Second Hand Smoke Exposure: No service: No Current occupational status: retired Current occupation: Right Handed Cognitive needs: No Hearing needs: No Vision needs: Yes (Glasses) Questionnaire PHQ-9 Over the last 2 weeks, how often have you been bothered by any of the following problems? 1. Little interest or pleasure in doing things: not at all 2. Feeling down, depressed, or hopeless: not at all 3. Trouble falling or staying asleep, or sleeping too much: not at all 4. Feeling tired or having little energy: several days 5. Poor appetite or overeating: not at all 6. Feeling bad about yourself - or that you are a failure or have let yourself or your family down: not at all 7. Trouble concentrating on things, such as reading the newspaper or watching television: not at all 8. Moving or speaking so slowly that other people could have noticed. Or the opposite - being so fidgety or restless that you have been moving around a lot more than usual: not at all 9. Thoughts that you would be better off or of hurting yourself in some way: not at all Total score: 1 Source: Developed by Drs. Nacho Carvalho, Alta Rivera, Greg Torres and colleagues, with an educational ger from [employer]. Thrive Questionnaire Date Thrive assessed: 03/17/25 I am a: Patient What is your living situation today?: I have a steady place to live Within the past 12 months, did the food you bought not last and you didn't have the money to get more?: Never true Within the past 12 months, did you worry whether your food would run out before you got money to buy more?: Never true Do you have trouble paying for medicines?: No Do you have trouble getting transportation to medical appointments?: No Do you have trouble paying your heating and electricity bill?: No Do you have trouble taking care of your child, family member or friend?: No Do you have trouble with day-to-day activities such as bathing, preparing meals, shopping, managing finances, etc.?: No Are you currently unemployed and looking for a job?: No Are you interested in more education?: No Please select the resources that you would like help with: None Currently or been in a relationship where the following occur: No concerns reported THRIVE Score: 0 AUDIT C Alcohol Use Questionnaire (AUDIT-C) 1. How often do you have a drink containing alcohol?: 2-3 times a week 2. How many drinks containing alcohol do you have on a typical day when you are drinking?: 1 or 2 3. How often do you have six or more drinks on one occasion?: Never Total Score: 3 AMI-7 AMB Questionnaire AMI-7 Date AMI - 7 assessed: 11/20/24 Feeling nervous, anxious, or on edge: 0 = Not at all Not being able to stop or control worryin = Not at all Worrying too much about different things: 0 = Not at all Trouble relaxin = Not at all Being so restless that it is hard to sit still: 0 = Not at all Becoming easily annoyed or irritable: 0 = Not at all Feeling afraid as if something awful might happen: 0 = Not at all Total AMI-7 score (0-4 normal; 5-9 mild; 10-14 moderate; 15-21 severe): 0 Source: Developed by Drs. Nacho Carvalho, Alta Rivera, Greg Torres and colleagues, with an educational ger from [employer]. Review of Systems Const Denies poor appetite and Denies weakness Eyes Denies no additional complaints ENT Reports Normal hearing present, Denies dizziness, Denies nasal congestion, Denies tinnitus and Denies sore throat Card Denies chest pain, Denies syncope, Denies rapid heart rate and Denies dyspnea Resp Denies cough and Denies dyspnea GI Denies change in stool character, Reports constipation, Denies diarrhea, Denies nausea and Denies vomiting Denies dysuria and Denies urinary frequency Neuro Reports Normal hearing present, Denies confusion, Denies dizziness, Denies syncope and Denies weakness Psych Denies confusion Physical exam (Primary Care) Vital Signs: Last Vital Signs Temp 97.3 F 03/24/25 11:11 Pulse 67 03/24/25 11:11 Resp 18 03/24/25 11:11 BP 132/60 03/24/25 11:21 Pulse Ox 99 03/24/25 11:11 Oxygen Delivery Method Room Air 03/24/25 11:11 BMI result Body Mass Index 26.4 Tobacco/Smoking Status: Tobacco use Status Tobacco use date assessed 03/24/25 03/24/25 11:14 Patient Tobacco Use Status Former Tobacco user 03/24/25 11:14 Tobacco use type Cigarette 03/24/25 11:14 e-Cigarette/Vaping Use Never Used 03/24/25 11:14 PHQ-9: PHQ-9 Score PHQ-9: Total score 1 03/24/25 11:19 Thrive Assessment: Date of Thrive Assessment Date Thrive assessed 03/17/25 03/24/25 11:14 Currently or been in a relationship where the following occur: No concerns reported Const General: No confusion Orientation/consciousness: No confusion HENMT Head: Yes normocephalic Ears: external ears normal and TM's normal bilaterally Face and sinus: Yes normal facial exam Mouth: moist mucous membranes Throat: Yes tonsils normal Eyes Conjunctivae: conjunctivae normal Pupils: Equal, round and reactive pupils present and Pupil accommodation reflex normal Direct Ophthalmoscopy: normal light reflex Neck Neck: No lymphadenopathy Thyroid: Thyroid normal Chest Chest palpation & inspection: normal inspection of the chest Resp Effort & Inspection: normal respiratory effort and no audible wheezes Auscultation: clear to auscultation bilaterally, no crackles, no wheezes and lung sounds not diminished Cardio Rate: regular rate Rhythm: regular rhythm Peripheral pulses: radial pulses present and dorsalis pedis present GI Palpation (GI): no masses Auscultation: normal bowel sounds and normoactive bowel sounds Rectal Exam - Male: Yes deferred Other: peal pulse and pin prick good Male General Exam: Yes normal external exam Skin General skin exam: no rashes or lesions noted Rashes: no rashes Neuro General: No confusion Cranial nerves: Yes Equal, round and reactive pupils present and Yes Normal hearing present Cognition (Neuro): normal cognition Gait exam (Neuro): Normal gait present Motor exam (neuro): 5/5 motor strength present throughout Deep tendon reflexes (DTR's): Right brachioradialis reflex intensity grade: 2+, Left brachioradialis reflex intensity grade: 2+, Right patellar reflex intensity grade: 2+ and Left patellar reflex intensity grade: 2+ Extrem General: No edema Coding Level of Care Code Est Pt Prev Care >65y(43194) Diagnoses Annual physical exam Z00.00 Type 2 diabetes mellitus with hyperglycemia, without long-term current use of insulin E11.65 Diabetes mellitus parts counterman insulin use: without snf use Primary hypertension I10 Hypertension type: primary hypertension Hypercholesterolemia E78.00 Hypogonadism in male E29.1 Tubular adenoma of colon D12.6 Bilateral renal stones N20.0 Benign prostatic hyperplasia with urinary frequency N40.1; R35.0 Lower urinary tract symptom detail: urinary frequency Lower urinary tract symptom presence: symptoms present Anemia of chronic disease D63.8 Obstructive sleep apnea syndrome, moderate G47.33 Assessment & Plan Assessment & Plan (1) Annual physical exam: Code(s): Z00.00 - Encounter for general adult medical examination without abnormal findings Category: Medical Plan: Patient is advised to eat healthy, keep well hydrated, keep active and have adequate sleep. (2) Type 2 diabetes mellitus with hyperglycemia: Code(s): E11.65 - Type 2 diabetes mellitus with hyperglycemia Category: Medical Qualifiers: Diabetes mellitus parts counterman insulin use: without snf use Qualified Code(s): E11.65 - Type 2 diabetes mellitus with hyperglycemia Plan: Decrease the amount of carbohydrate intake, pasta, bread, rice and potatoes are all sugar and that is aside from all the sweet stuff, remember that fruits are good but they are Sweet also. Hemoglobin A1c goal of less than 7.0 (3) Hypertension: Comment: no meds Code(s): I10 - Essential (primary) hypertension Category: Medical Qualifiers: Hypertension type: primary hypertension Qualified Code(s): I10 - Essential (primary) hypertension Plan: Continue with blood pressure medication. Decrease salt intake and exercise patient is on hydrochlorothiazide 12.5 mg once a day (4) Hypercholesterolemia: Code(s): E78.00 - Pure hypercholesterolemia, unspecified Category: Medical Plan: Avoid fried foods, chicken skin, eggs, butter margarine, pastries and meat. Be it pork or beef they have a lot of cholesterol LDL goal of less than 100 and triglyceride of less than 150 on rosuvastatin 5 mg once a day (5) Hypogonadism in male: Code(s): E29.1 - Testicular hypofunction Category: Medical Plan: Patient is being followed up by Urology (6) Tubular adenoma of colon: Code(s): D12.6 - Benign neoplasm of colon, unspecified Category: Medical Plan: Patient has met with Gastroenterology and will be planning for colonoscopy soon (7) Bilateral renal stones: Comment: Lithotripsy Dr. Christina February, May 2018 Code(s): N20.0 - Calculus of kidney Category: Medical Plan: Keep well hydrated (8) BPH (benign prostatic hyperplasia): Comment: Bladder stone and prostate biopsy July 2023 Code(s): N40.0 - Benign prostatic hyperplasia without lower urinary tract symptoms Category: Medical Qualifiers: Lower urinary tract symptom detail: urinary frequency Lower urinary tract symptom presence: symptoms present Qualified Code(s): N40.1 - Benign prostatic hyperplasia with lower urinary tract symptoms; R35.0 - Frequency of micturition Plan: Continue to follow-up with urology (9) Anemia of chronic disease: Code(s): D63.8 - Anemia in other chronic diseases classified elsewhere Category: Medical Plan: Continue to monitor (10) Obstructive sleep apnea syndrome, moderate: Comment: AHI 17/hr, O2 james 80% Code(s): G47.33 - Obstructive sleep apnea (adult) (pediatric) Category: Medical Plan: Continue to use the CPAP more than 4 hours a night and benefits from this. Patient does see Neurology Plan History of Present Illness The patient is an 80-year-old male presenting for a routine physical examination and management of chronic conditions. He has a history of hypercholesterolemia, which is currently managed with rosuvastatin 5 mg daily. His LDL cholesterol is well-controlled at 70 mg/dL. The patient has impaired glucose tolerance with a hemoglobin A1c of 6.3%. He is advised to maintain a hemoglobin A1c goal of less than 7.0%. He has a history of benign prostatic hyperplasia (BPH) and underwent a green light laser prostatectomy in July 2023. He reports improvement in urinary symptoms post-procedure. The patient has obstructive sleep apnea and uses a CPAP machine regularly, with compliance noted. He follows up with neurology for this condition. He has a history of cervical degenerative disc disease and hypertension, managed with hydrochlorothiazide 12.5 mg daily. The patient has nephrolithiasis and has undergone lithotripsy. He follows up with nephrology for this condition. He has diabetes mellitus and a history of tubular adenoma of the colon, with the last colonoscopy performed in 2019. A follow-up colonoscopy is scheduled. The patient reports low testosterone levels, which may contribute to his fatigue. He is not currently on testosterone replacement therapy. He has mild anemia with stable hemoglobin levels over the years. His iron levels are normal. 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 Health Maintenance - Colonoscopy scheduled for follow-up on tubular adenoma - Regular use of CPAP for obstructive sleep apnea - Vaccinations up to date including shingles, tetanus, RSV, and pneumonia - Blood pressure management with hydrochlorothiazide 12.5 mg daily - Cholesterol management with rosuvastatin 5 mg daily Social History - Alcohol consumption: Drinks 1-2 drinks on four days a week, abstains Sunday to Sunday - Smoking: Quit smoking 40 years ago - Exercise: Engages in yard work Review of Systems - General: Denies fever, chills, or weight loss - Cardiovascular: Denies chest pain, palpitations, or dyspnea - Respiratory: Denies cough or wheezing - Gastrointestinal: Reports normal bowel movements, denies nausea or vomiting - Genitourinary: Reports nocturia twice per night, denies dysuria - Neurological: Denies dizziness, syncope, or numbness - Musculoskeletal: Reports stiffness in joints after sitting, denies joint pain - Ophthalmologic: Reports fading vision, retinal scar in left eye Physical Exam General: Cooperative, healthy appearing, comfortable, no acute distress and well developed Orientation: Patient oriented x3 Limitations: No limitations Head: Normal to inspection Ears: Hearing grossly normal bilaterally Nose: Normal external nose present Face and sinus: Normal facial exam Eyes: Appearance normal, both eyes and all related structures, but patient reports vision fading and has a 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 Clear to auscultation bilaterally Cardiovascular: Regular rate and rhythm. Normal S1 and S2 GI: Normal to inspection. Soft to palpation and nontender Skin: No rashes or lesions noted Neuro: Patient oriented x3 Extremities: Normal to inspection, but patient reports occasional lack of strength in legs and stiffness after sitting for a while, possibly due to arthritis. No numbness noted. Results - Labs: Hemoglobin A1c 6.3%, LDL 70 mg/dL, triglycerides 75 mg/dL, testosterone 52 ng/dL - Labs: Hemoglobin 13.6 g/dL, hematocrit 39.4%, normal iron levels - Labs: Normal liver function tests, normal B12, folic acid, and thyroid levels Plan The patient will continue with current management for hypercholesterolemia, maintaining LDL levels below 100 mg/dL with rosuvastatin 5 mg daily. For impaired glucose tolerance, the goal is to maintain hemoglobin A1c below 7.0%, with regular monitoring and lifestyle modifications as needed. The patient will continue using CPAP for obstructive sleep apnea, with regular follow-ups with neurology to monitor compliance and effectiveness. Hypertension management will continue with hydrochlorothiazide 12.5 mg daily, with regular blood pressure monitoring at home. A follow-up colonoscopy is scheduled to monitor the history of tubular adenoma, with gastroenterology overseeing the procedure. The patient will continue follow-ups with nephrology for nephrolithiasis and low testosterone, with hormone levels being monitored regularly. The patient is advised to maintain regular physical activity and a balanced diet to support overall health and manage chronic conditions. Vaccinations are up to date, and the patient is encouraged to receive the COVID booster and flu shot in the fall. Patient was informed and verbally consented to the use of an ambient scribe for clinic note documentation during this visit. Discussion Notes During the visit, we discussed the importance of maintaining LDL cholesterol levels below 100 mg/dL and keeping hemoglobin A1c below 7.0% to manage hypercholesterolemia and impaired glucose tolerance, respectively. We reviewed the patient's compliance with CPAP therapy for obstructive sleep apnea and emphasized the need for regular follow-ups with neurology. The patient was informed about the upcoming colonoscopy to monitor the history of tubular adenoma and the importance of continuing follow-ups with nephrology for nephrolithiasis and low testosterone. We also discussed the patient's vaccination status, encouraging him to receive the COVID booster and flu shot in the fall. Patient Instructions - Continue taking rosuvastatin 5 mg daily for cholesterol management. - Monitor blood pressure regularly at home and continue hydrochlorothiazide 12.5 mg daily. - Use CPAP machine every night for at least 4 hours. - Maintain a balanced diet and regular physical activity. - Schedule and attend the upcoming colonoscopy. - Follow up with nephrology and neurology as scheduled. - Plan to receive the COVID booster and flu shot in the fall.
[2025-03-24 11:21] VITALS: BP 132/60
== END 2025-03-24 11:44 | disposition home or self-care (01) ==
LOC: HO.HMCH 11:10
PROVIDERS: PCP Internal Medicine; Visit Provider Internal Medicine
DX: Z00.00 Encounter for general adult medical examination without abnormal findings (principal); E11.65 Type 2 diabetes mellitus with hyperglycemia; I10 Essential (primary) hypertension; E78.00 Pure hypercholesterolemia, unspecified; E29.1 Testicular hypofunction; D12.6 Benign neoplasm of colon, unspecified; N20.0 Calculus of kidney; N40.1 Benign prostatic hyperplasia with lower urinary tract symptoms; D63.8 Anemia in other chronic diseases classified elsewhere; G47.33 Obstructive sleep apnea (adult) (pediatric)

== ENCOUNTER → 2025-03-24 11:09 | Outpatient (BNVA) | payer MEDICARE, SELFPAY | PROVIDERS: PCP Internal Medicine; Visit Provider Internal Medicine | DX: Z00.00 Encounter for general adult medical examination without abnormal findings (principal); E11.65 Type 2 diabetes mellitus with hyperglycemia; I10 Essential (primary) hypertension; E78.00 Pure hypercholesterolemia, unspecified; E29.1 Testicular hypofunction; N20.0 Calculus of kidney; N40.1 Benign prostatic hyperplasia with lower urinary tract symptoms; R35.0 Frequency of micturition; D63.8 Anemia in other chronic diseases classified elsewhere; G47.33 Obstructive sleep apnea (adult) (pediatric); Z86.0101 Personal history of adenomatous and serrated colon polyps; Z79.899 Other long term (current) drug therapy; Z13.30 Encounter for screening examination for mental health and behavioral disorders, unspecified | CPT/HCPCS: 96127; 99397 ==

== ENCOUNTER 2025-04-03 11:29 | Outpatient (AMB) | payer MEDICARE, SELFPAY ==
--- NOTE | 2025-04-03 11:37 | MHC.OFFVIS ---
Intake Visit Reasons: 2m/Labs Intake Note: Patient is present for 2 mo follow up for hypogonadism Labs done 03/06/2025: FSH43.1,Luteinizing hormone:22.0,Total testosterone:52, Fr Testosterone:7.7, SHB:39 Urology Med:None Antibiotic Allergy:None Blood Thinner: Aspirin last PVR:0ml Medical Operations Supervisor Required: No Accompanied by: Self / Same As Patient Allergies No Known Allergies (No Known Allergies*) Allergy (Verified 04/03/25 11:41) HPI Comments Details: Chung is a pleasant male. He is a patient of Dr. Barron. Seen for the following urologic conditions - nephrolithiasis - lower urinary tract symptoms - bladder stone Hormone evaluation follow-up Given symptomatic status would recommend testosterone gel We will initiate gel treatment and repeat lab work in three-month Hypogonadism 09/20 T 78 with fatigue, 03/20 T 52 FSH 43 LH 22 Sleep apnea Has experienced hot flashes HbA1c 09/20 6.3% Lower urinary tract symptoms Progressive urgency and frequency Found to have bladder stone 1.5 cm cystoscopy Intervention - 08/18 GreenLight laser prostatectomy and stone removal PSA - 12/18 <0.1 PFSH Medical History (Updated 03/24/25 @ 11:18 by Benjamin Barron MD) JACQUELYN (obstructive sleep apnea) Impaired glucose tolerance Nephrolithiasis Anemia Cervical spinal stenosis Hypertension Degenerative disc disease, cervical Obstructive sleep apnea syndrome, moderate Vitamin D deficiency BPH (benign prostatic hyperplasia) Bilateral renal stones History of TIA (transient ischemic attack) Hypercholesterolemia 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 Rash, skin Right shoulder pain Folliculitis Surgical History Hx of cystoscopy H/O colonoscopy H/O lithotripsy History of tonsillectomy Family History Mother Colon cancer Social History Housing: House Alcohol intake: current Comment: 4 x a week 1-2 drinks Patient Tobacco Use Status: Former Tobacco user Tobacco use type: Cigarette Years Smoked: 1989 quit e-Cigarette/Vaping Use: Never Used Second Hand Smoke Exposure: No service: No Current occupational status: retired Current occupation: Right Handed Cognitive needs: No Hearing needs: No Vision needs: Yes (Glasses) Review of Systems Const Denies chills and Denies fever(s) Card Reports no additional complaints and Denies syncope Resp Denies cough GI Denies abdominal pain and Denies heartburn Reports as per HPI and Denies change in libido Neuro Denies syncope Psych Denies change in libido Endo Denies change in libido Physical Exam Const General: cooperative, healthy appearing, comfortable and no acute distress Orientation/consciousness: patient oriented x3 HEENT Face and sinus: Yes normal facial exam Mouth: moist mucous membranes Neck Neck: Yes normal visual inspection, Yes full ROM and Yes trachea midline Chest Chest palpation & inspection: normal inspection of the chest Resp Effort & Inspection: normal respiratory effort, able to speak in complete sentences and no respiratory distress GI Inspection: Yes normal to inspection Back/Spine/Pelvis Cervical Spine: normal cervical lordosis Thoracic/Lumbar Spine: thoracic and lumbar spine normal to inspection Skin General skin exam: no rashes or lesions noted Neuro General: patient oriented x3, gait normal, tone normal and moves all extremities Extrem General: Yes normal to inspection and Yes capillary refill normal Assessment & Plan Assessment & Plan (1) Hypogonadism in male: Code(s): E29.1 - Testicular hypofunction Category: Medical Plan Trial testosterone gel Three-month follow-up lab work Orders: Orders Testosterone, Total 3 Months E29.1 - Testicular hypofunction Medications: New testosterone apply 1 packet daily 50 mg transdermal DAILY 150 grams 3RF 30 days E29.1 - Testicular hypofunction Patient Instructions: This note is constructed using voice recognition software. While every effort has been made to ensure accuracy criminal investigative agent errors may have been included. Imaging studies, laboratory and physical exam results were discussed and reviewed in detail. No major barriers to patient understanding were identified. An opportunity to ask questions regarding the treatment plan was provided. All questions were answered. The patient expressed understanding and agreement with the above treatment plan. The patient is aware they should contact our office by phone for worsening of their current condition or the appearance of new urologic symptoms. Compliance is encouraged with any medications and followup testing that is ordered. It is a privilege to participate in the urologic care of your patient. If you have any questions or concerns regarding treatment for the above conditions, or other urologic issues, please do not hesitate to contact me. The office telephone contact is [phone]. Sincerely, Dr Pipo Goodrich MD, [facility] - Urology Compassionate Specialist Care for the Genitourinary System Coding Level of Care Code Est Pt Level 4 (69634) Diagnoses Hypogonadism in male E29.1
== END 2025-04-03 12:49 | disposition home or self-care (01) ==
LOC: HO.HUSH 11:30
PROVIDERS: PCP Internal Medicine; Visit Provider Urology
DX: E29.1 Testicular hypofunction (principal)
CPT/HCPCS: 99214

== ENCOUNTER → 2025-04-03 11:29 | Outpatient (BNVA) | payer MEDICARE, SELFPAY | PROVIDERS: PCP Internal Medicine; Visit Provider Urology | DX: E29.1 Testicular hypofunction (principal) | CPT/HCPCS: 99212 ==

== ENCOUNTER 2025-06-17 07:53 | Outpatient (REF) | payer MEDICARE, SELFPAY | END 2025-06-17 07:54 | disposition home or self-care (01) | LOC: HO.HMGCLDS 07:53 | PROVIDERS: PCP Internal Medicine; Visit Provider Urology | DX: E29.1 Testicular hypofunction (principal) | CPT/HCPCS: 36415; 84403 ==

== ENCOUNTER 2025-07-03 10:17 | Outpatient (AMB) | payer MEDICARE, SELFPAY ==
--- NOTE | 2025-07-03 10:26 | MHC.OFFVIS ---
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 He is a patient of Dr. Barron. Seen for the following urologic conditions - nephrolithiasis - lower urinary tract symptoms - bladder stone Three-month follow-up Body hair came back and hot flashes are gone however has noticed increased anxiety Testosterone 520 Would reduce dosage to half a packet daily Discussed sudden rise in testosterone can be associated with emotional impact Hypogonadism 09/20 T 78 with fatigue, 03/20 T 52 FSH 43 LH 22, 06/20 520 Sleep apnea Has experienced hot flashes HbA1c 09/20 6.3% Lower urinary tract symptoms Progressive urgency and frequency Found to have bladder stone 1.5 cm cystoscopy Intervention - 08/18 GreenLight laser prostatectomy and stone removal PSA - 12/18 <0.1 PFSH Medical History JACQUELYN (obstructive sleep apnea) Impaired glucose tolerance Nephrolithiasis Anemia Cervical spinal stenosis Hypertension Degenerative disc disease, cervical Obstructive sleep apnea syndrome, moderate Vitamin D deficiency BPH (benign prostatic hyperplasia) Bilateral renal stones History of TIA (transient ischemic attack) Hypercholesterolemia 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 Rash, skin Right shoulder pain Folliculitis Surgical History Hx of cystoscopy H/O colonoscopy H/O lithotripsy History of tonsillectomy Family History Mother Colon cancer Social History Housing: House Alcohol intake: current Comment: 4 x a week 1-2 drinks Patient Tobacco Use Status: Former Tobacco user Tobacco use type: Cigarette Years Smoked: 1989 quit e-Cigarette/Vaping Use: Never Used Second Hand Smoke Exposure: No service: No Current occupational status: retired Current occupation: Right Handed Cognitive needs: No Hearing needs: No Vision needs: Yes (Glasses) Review of Systems Const Denies chills and Denies fever(s) Card Reports no additional complaints and Denies syncope Resp Denies cough GI Denies abdominal pain and Denies heartburn Reports as per HPI and Denies change in libido Neuro Denies syncope Psych Denies change in libido Endo Denies change in libido Physical Exam Const General: cooperative, healthy appearing, comfortable and no acute distress Orientation/consciousness: patient oriented x3 HEENT Face and sinus: Yes normal facial exam Mouth: moist mucous membranes Neck Neck: Yes normal visual inspection, Yes full ROM and Yes trachea midline Chest Chest palpation & inspection: normal inspection of the chest Resp Effort & Inspection: normal respiratory effort, able to speak in complete sentences and no respiratory distress GI Inspection: Yes normal to inspection Back/Spine/Pelvis Cervical Spine: normal cervical lordosis Thoracic/Lumbar Spine: thoracic and lumbar spine normal to inspection Skin General skin exam: no rashes or lesions noted Neuro General: patient oriented x3, gait normal, tone normal and moves all extremities Extrem General: Yes normal to inspection and Yes capillary refill normal Office Procedures Post Void Residual Post Residual Void Post Void Residual (PVR): 60 [id number] Void Residual by ultrasound Assessment & Plan Assessment & Plan (1) Bilateral renal stones: Comment: Lithotripsy Dr. Christina February, May 2018 Code(s): N20.0 - Calculus of kidney Category: Medical (2) Hypogonadism in male: Code(s): E29.1 - Testicular hypofunction Category: Medical Plan Apply 1/2 pack daily 3m f/u lab work Orders: Orders AMB Post Void Residual by ultrasound 07/03/25 N40.1 - Benign prostatic hyperplasia with lower urinary tract symptoms, R35.0 - Frequency of micturition Testosterone, Total 3 Months E29.1 - Testicular hypofunction Medications: Refilled testosterone apply 1 packet daily 50 mg transdermal DAILY 150 grams 3RF 30 days E29.1 - Testicular hypofunction Patient Instructions: This note is constructed using voice recognition software. While every effort has been made to ensure accuracy basting marker errors may have been included. Imaging studies, laboratory and physical exam results were discussed and reviewed in detail. No major barriers to patient understanding were identified. An opportunity to ask questions regarding the treatment plan was provided. All questions were answered. The patient expressed understanding and agreement with the above treatment plan. The patient is aware they should contact our office by phone for worsening of their current condition or the appearance of new urologic symptoms. Compliance is encouraged with any medications and followup testing that is ordered. It is a privilege to participate in the urologic care of your patient. If you have any questions or concerns regarding treatment for the above conditions, or other urologic issues, please do not hesitate to contact me. The office telephone contact is [phone]. Sincerely, Dr Pipo Goodrich MD, [facility] - Urology Compassionate Specialist Care for the Genitourinary System Coding Level of Care Code Est Pt Level 3 (04491) Complex EM visit Add On G2211 Diagnoses Bilateral renal stones N20.0 Hypogonadism in male E29.1 CPT Codes Post Residual Void - PVR CPT Code: 12268-Axrt Void Residual by ultrasound ([id number])
== END 2025-07-03 11:26 | disposition home or self-care (01) ==
LOC: HO.HUSH 10:17
PROVIDERS: PCP Internal Medicine; Visit Provider Urology
DX: N20.0 Calculus of kidney (principal); E29.1 Testicular hypofunction
CPT/HCPCS: 99213; G2211

== ENCOUNTER → 2025-07-03 10:17 | Outpatient (BNVA) | payer MEDICARE, SELFPAY | PROVIDERS: PCP Internal Medicine; Visit Provider Urology | DX: E29.1 Testicular hypofunction (principal); N40.1 Benign prostatic hyperplasia with lower urinary tract symptoms; R35.0 Frequency of micturition; R39.15 Urgency of urination; Z79.890 Hormone replacement therapy; Z87.442 Personal history of urinary calculi | CPT/HCPCS: 51798; 99212 ==

== ENCOUNTER 2025-07-28 10:52 | Outpatient (AMB) | payer MEDICARE, SELFPAY ==
[2025-07-28 11:09] VITALS: BP 134/70; PULSE 61; O2SAT 94; BMI 26.9
--- NOTE | 2025-07-28 11:09 | MHC.OFFVIS ---
Vital Signs 07/28/25 11:09 Height 5 ft 11 in Weight 193 lb BMI 26.9 BP 134/70 Blood Pressure Location Rt brachial Position Sitting Pulse 61 Pulse Source Pulse Oximeter Pulse Oximetry (%) 94 Oxygen Delivery Method Room Air Intake Visit Reasons: 6m follow up Intake Note: Patient presents follow up JACQUELYN. Compliance in chart(62/90days, >=4hrs-51%, Average Usage-4hrs 12min, Pressure-14cm, Med Leaks-1.0, AHI-1.8). Accompanied by: Self / Same As Patient Allergies No Known Allergies (No Known Allergies*) Allergy (Verified 07/28/25 11:12) HPI Comments Details: 80 year old male presents for a f/u of JACQUELYN on cpap therapy. JACQUELYN compliance report 03/30/2025- 06/28/2025 Total Use 89/90 days and 99% >4 hours 78 days and 87% Avg total days used 6 hours 45 min, Press [id number] and Leaks median 12. 6 AHI is 5.7/hr He washes his mask, tubing and changes filters as needed, fills reservoir with water daily. 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 He feels chronically fatigued and takes a nap daily 15min-30min.He has a h/o TIA / and Anemia of Chronic Diseases, denies bleeding. He goes to bed at 11pm and gets up at 7am, with 1 bathroom break, the noise from the pressures of air from cpap wakes him up somtimes. He likes the temperature and pressures on his cpap machine, gets supplies on time. He wakes up feeling a lack of energy , and has 2 cups of coffee to start his day. He walks daily for 30 min and lifts 5lbs of weights 2-3x a week. His mood is stable. Memory is poor has trouble with word recall, and forgets why he has entered a room, he keeps reminders and uses daily notes. His diet is stable, he eliminated sugar from his diet. He likes to drink 2 glasses of wine per night daily, we discussed monitoring alcohol intake as it can cause him to go to the bathroom more often. Denies morning headaches, RLS symptoms, parasomnias, V/A Hallucinations, Vertigo, falls, gait and balance difficulties. [facility] Medical History JACQUELYN (obstructive sleep apnea) Impaired glucose tolerance Nephrolithiasis Anemia Cervical spinal stenosis Hypertension Degenerative disc disease, cervical Obstructive sleep apnea syndrome, moderate Vitamin D deficiency BPH (benign prostatic hyperplasia) Bilateral renal stones History of TIA (transient ischemic attack) Hypercholesterolemia 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 Rash, skin Right shoulder pain Folliculitis Surgical History Hx of cystoscopy H/O colonoscopy H/O lithotripsy History of tonsillectomy Family History Mother Colon cancer Social History Housing: House Alcohol intake: current Comment: 4 x a week 1-2 drinks Patient Tobacco Use Status: Former Tobacco user Tobacco use type: Cigarette Years Smoked: 1989 quit e-Cigarette/Vaping Use: Never Used Second Hand Smoke Exposure: No service: No Current occupational status: retired Current occupation: Right Handed Cognitive needs: No Hearing needs: No Vision needs: Yes (Glasses) Physical Exam Vital Signs: Last Vital Signs Pulse 61 07/28/25 11:09 BP 134/70 07/28/25 11:09 Pulse Ox 94 07/28/25 11:09 Oxygen Delivery Method Room Air 07/28/25 11:09 BMI result Body Mass Index 26.9 Const General: cooperative, comfortable and no acute distress Nutritional Appearance: overweight Orientation/consciousness: patient oriented x3 HEENT Face and sinus: Yes face symmetric Eyes Pupils: Equal, round and reactive pupils present Resp Effort & Inspection: normal respiratory effort and able to speak in complete sentences Neuro Other: limited rom on ext and flexion. General: patient oriented x3 and moves all extremities Cranial nerves: Yes Facial sensation intact/muscles of mastication intact, Yes Equal, round and reactive pupils present, Yes Normal accommodation reflex present, Yes Normal facial strength present, Yes Midline tongue present and Yes Ability to bilaterally rotate head present (with limited rom) Cognition (Neuro): normal cognition Gait exam (Neuro): Normal gait present Motor exam (neuro): 5/5 motor strength present throughout and Normal motor muscle tone present throughout Deep tendon reflexes (DTR's): Right triceps reflex intensity grade: 2+, Left triceps reflex intensity grade: 2+, Rt Biceps (C5, C6): 2+, Left biceps reflex intensity grade: 2+, Right brachioradialis reflex intensity grade: 2+, Left brachioradialis reflex intensity grade: 2+, Right patellar reflex intensity grade: 2+ and Left patellar reflex intensity grade: 2+ Coordination: [id number] test normal Psych Appearance: grossly normal Speech and movement: Normal speech and movement present Attitude: cooperative Thought process: Normal thought process present Thought content: Normal thought content present Insight: Good insight present (Psych) Results Reviewed Results Reviewed: JACQUELYN compliance report 03/30/2025- 06/28/2025 Total Use 89/90 days and 99% >4 hours 78 days and 87% Avg total days used 6 hours 45 min, Press [id number] and Leaks median 12. 6 AHI is 5.7/hr He washes his mask, tubing and changes filters as needed, fills reservoir with water daily. Assessment & Plan Assessment & Plan (1) JACQUELYN (obstructive sleep apnea): Code(s): G47.33 - Obstructive sleep apnea (adult) (pediatric) Category: Medical (2) Fatigue: Code(s): R53.83 - Other fatigue Category: Medical Qualifiers: Fatigue type: chronic, unspecified Qualified Code(s): R53.82 - Chronic fatigue, unspecified Plan JACQUELYN on cpap therapy and continues to be compliant, HST is c/w mild jacquelyn AHI is 13.6 and oxygen nadirs to 84%. Cognitive difficulties, forgetful, will do an MMSE at next f/u. Labs reviewed with pt. May take magnesium 200-400mg po daily at bedtime, and Vitamin D 1000unit. F/U in 6 months. Patient Instructions: Please complete the following fasting labs to rule out deficiencies. CBC/CMP/ B12/ Vit D/ TSH/ Homocysteine and MMA/ Ferritin. Sleep Hygiene provided: set a scheduled bedtime and wake time to help regulate the circadian rhythm and balance the release of pituitary hormones. Sleep in a dark room, temperatures below 68 degrees, and no devices n bed. Limit caffeinated products 6 hours prior to bed, and limit fluids 2-4 hours prior to bed. Gentle night yoga, diffusing essential oils, and playing soft music can be relaxing. Coding Level of Care Code Est Pt Level 4 (41900) Diagnoses JACQUELYN (obstructive sleep apnea) G47.33 Chronic fatigue R53.82 Fatigue type: chronic, unspecified
== END 2025-07-28 12:09 | disposition home or self-care (01) ==
LOC: HO.HSMS 10:53
PROVIDERS: PCP Internal Medicine; Visit Provider Physician Assistant Medical
DX: G47.33 Obstructive sleep apnea (adult) (pediatric) (principal); R53.82 Chronic fatigue, unspecified
CPT/HCPCS: 99214

== ENCOUNTER → 2025-07-28 10:52 | Outpatient (BNVA) | payer MEDICARE, SELFPAY | PROVIDERS: PCP Internal Medicine; Visit Provider Physician Assistant Medical | DX: G47.33 Obstructive sleep apnea (adult) (pediatric) (principal); R53.82 Chronic fatigue, unspecified | CPT/HCPCS: 99212 ==